=== PATIENT | female | born 1955 | race Caucasian/White ===

== ENCOUNTER 2017-09-15 21:52 | Emergency (ER) | payer OTHER, SELFPAY ==
[2017-09-15 21:53] VITALS: BP 151/89; PULSE 61; RESP 17; TEMP 36.9; O2SAT 97; BMI 19.5
--- NOTE | 2017-09-15 22:24 | CT_ITS ---
STUDY: CT BRAIN WITHOUT CONTRAST REASON FOR EXAM: Female, 62 years old. Headache. RADIATION DOSAGE (If Supplied By Facility): CTDIvol = ( 44.99 ) mGy, DLP = ( 745.49 ) mGycm TECHNIQUE: Transaxial CT imaging of the brain was performed without administration of intravenous contrast material. Individualized dose optimization techniques were used for this CT. COMPARISON: None. FINDINGS: Normal soft tissue structures. Normal calvarium. Normal size ventricles and extra-axial spaces for the patient's age. Normal white matter tracts of the cerebral hemispheres. Normal basal ganglia and thalami. Normal brainstem. Normal cerebellum. There is no intracranial hemorrhage. There are no findings of an acute ischemic infarction. There is trace opacification of the left mastoid air cells. CT/Brain/Head without Contrast IMPRESSION: No acute intracranial process. Trace opacification of the left mastoid air cells suggestive of a history of mastoiditis. Electronically Signed: Leena Ambrosio MD at 23:22 EDT Tel , Service support ,
--- NOTE | 2017-09-15 22:29 | ED.VISSUMM ---
- ER Visit Summary Date of Service: 09/15/17 Chief Complaint: Headache History of Present Illness: The patient is a 62 F presenting with intermittent headache. This has been ongoing for the past week. She states her blood pressure has been fluctuating. She states the highest she recorded was 189/90. She has been checking this at home. She does not have a history of hypertension. She states when her blood pressure is high, she has a headache. She does not currently have a headache. She has been under a lot of stress at work. She denies chest pain or shortness of breath. Denies other complaints. Physical Examination: Vitals are stable. Blood pressure 151/89. Patient is afebrile. Alert no acute distress. HEENT exam is unremarkable. Neck is supple. Lungs are clear and equal bilaterally. Heart is regular rate and rhythm. Abdomen is soft nontender nondistended. Extremities are unremarkable. Skin is warm and dry. No focal neurologic deficit. Remainder of exam is unremarkable. Emergency Department Course and Treatment: CT head shows no acute process. Basic metabolic panel is normal. Patient remains asymptomatic in the emergency department. She is advised to track her blood pressures at home. She is advised to follow up with Dr. Galvez her primary care physician. Advised return to ED for any worsening complaints. Disposition: Discharge home Impression: Headache, resolved; hypertension This note was generated with [employer] dictation software. It may contain incorrect words, spelling, and punctuation that were not noted in review of the chart prior to signing ED Disposition - Plan for ED Patient: Chief Complaint: Headache Referrals: Cory Galvez DO [Primary Care Provider] -
[2017-09-15 22:40] VITALS: BP 144/76
[2017-09-15 22:51] VITALS: BP 161/85
[2017-09-15 23:13] LABS: Anion Gap 7 (5-15); BUN 16 mg/dL (7-18); BUN/Creat Ratio 18.9 RATIO (10-20); Calcium,Total 8.7 mg/dL (8.5-10.1); Chloride 107 mmol/L (98-107); Creatinine, Serum 0.85 mg/dL (0.55-1.02); EST Glomerular Filtration Rate 72 mL/min (>60); Est Glom Filt Rate - Afr Amer 87 mL/min (>60); Estimated Creatinine Clearance 55.18 ml/min; Glucose 99 mg/dL (74-106); Potassium 3.8 mmol/L (3.5-5.1); Sodium Level 141 mmol/L (136-145)
--- NOTE | 2017-09-15 23:37 | ED.DEP ---
ED Disposition - Plan for ED Patient: Chief Complaint: Headache Instructions: ED Cephalgia Unspecified Referrals: Cory Galvez DO [Primary Care Provider] -
[2017-09-15 23:56] VITALS: BP 139/65; PULSE 50; RESP 16; O2SAT 98
== END 2017-09-15 23:56 | disposition home or self-care (01) ==
LOC: ED 22:38
PROVIDERS: Emergency Provider Emergency Medicine; Family Provider Student in an Organized Health Care Education/Training Program; PCP Student in an Organized Health Care Education/Training Program
DX: R51 Headache (principal); I10 Essential (primary) hypertension; K21.9 Gastro-esophageal reflux disease without esophagitis; F41.9 Anxiety disorder, unspecified; Z72.0 Tobacco use; Z79.82 Long term (current) use of aspirin; Z79.899 Other long term (current) drug therapy
CPT/HCPCS: 70450; 80048; 99282; A4216

== ENCOUNTER 2018-03-22 22:19 | Emergency (ER) | payer OTHER, SELFPAY ==
[2018-03-22 22:20] VITALS: BP 152/84; PULSE 57; RESP 16; TEMP 36.2; O2SAT 98; BMI 19.9
--- NOTE | 2018-03-22 22:23 | EKG12_ITS ---
Test Reason : CP Blood Pressure : / mmHG Vent. Rate : 055 BPM Atrial Rate : 055 BPM P-R Int : 140 ms QRS Dur : 068 ms QT Int : 438 ms P-R-T Axes : 076 082 061 degrees QTc Int : 419 ms Sinus bradycardia Possible Left atrial enlargement Borderline ECG Confirmed by AHMET GALINDO, RANDAL ([id number]), fashion editor YAMILA HOLT ([id number]) on 03/25/2018 3:29:40 PM Referred By: ANGI Confirmed By:RANDAL LEO MD
--- NOTE | 2018-03-22 22:30 | RAD_ITS ---
STUDY: X-RAY CHEST REASON FOR EXAM: Female, 62 years old. Chest pain TECHNIQUE: Single frontal view of the chest. COMPARISON: 05/27/2017. FINDINGS: There is hyperinflation of the lungs consistent with chronic obstructive lung disease (COPD). No infiltrates or effusions. There is no demonstrated pleural abnormality. Normal size heart. Normal mediastinum and destin. Normal visualized pulmonary arteries. Normal visualized aortic arch and descending thoracic aorta. Normal visualized thoracic spine. Normal visualized ribs, clavicles, and shoulders. There is no demonstrated abnormality of the visualized soft tissue structures of the upper abdomen. RAD/Chest 1 View (Portable) IMPRESSION: There are findings consistent with COPD. There is no evidence of acute chest disease. Electronically Signed: Waldemar Moody MD at 22:47 EST , Service support ,
[2018-03-22 22:38] VITALS: O2SAT 97
[2018-03-22 22:52] LABS: Absolute Lymphocyte Count 3.82 X10^3/ul (0.83-4.51); Absolute Neutrophil Count 5.5 X10^3/uL (2.0-7.7); Basophil# 0.03 X10^3/uL; Basophil% 0.3 % (0-1); Eosinophil# 0.14 X10^3/uL; Eosinophils% 1.4 % (0-5); Hematocrit 43.8 % (37-47); Hemoglobin 14.3 g/dl (12.0-15.0); Lymphocyte # 3.82 X10^3/ul (4.0); Lymphocyte % 38.2 % (19-41); Mean Corp Hgb Conc 32.6 g/gl (32-36); Mean Corpuscular Volume 88.8 fL (81-99); Mean Platelet Vol. 10.3 fl (6.2-12.0); Monocyte# 0.54 X10^3/uL; Monocyte% 5.4 % (0-10); Neutrophil # 5.47 X10^3/uL (2.7-7.7); Neutrophil % 54.6 % (47-70); Platelet Count 255 K/mm3 (150-450); RBC Distribution Width CV 14.5 % (11.6-14.6); RBC Distribution Width SD 47.2 fl (35.1-43.9); Red Blood Count 4.93 M/mm3 (4.2-5.4)
[2018-03-22 22:53] LABS: POSITIVE COUNT NO; POSITIVE DIFFERENTIAL NO; POSITIVE MORPHOLOGY NO
[2018-03-22 23:00] LABS: International Normalized Ratio 0.9; Prothrombin Time (Protime)PT. 12.4 SECONDS (11.7-14.9)
[2018-03-22 23:11] LABS: Anion Gap 7 (5-15); BUN 11 mg/dL (7-18); BUN/Creat Ratio 12.9 RATIO (10-20); Calcium,Total 9.2 mg/dL (8.5-10.1); Chloride 105 mmol/L (98-107); Creatinine, Serum 0.85 mg/dL (0.55-1.02); EST Glomerular Filtration Rate 71 mL/min (>60); Est Glom Filt Rate - Afr Amer 86 mL/min (>60); Estimated Creatinine Clearance 56.25 ml/min; Glucose 91 mg/dL (74-106); Potassium 3.9 mmol/L (3.5-5.1); Sodium Level 141 mmol/L (136-145)
[2018-03-22 23:30] LABS: Lipase 76 U/L (73-393)
[2018-03-22 23:36] LABS: AST(SGOT) 20 U/L (15-37); Alanine Aminotransfer ALT/SGPT 35 U/L (13-56); Albumin, Serum 4.3 g/dL (3.2-5.0); Alkaline Phosphatase 116 U/L (45-117); Bilirubin, Direct 0.09 mg/dL (0.00-0.30); Globulin 3.3 g/dL (2.2-4.2); Protein, Total 7.6 g/dL (6.4-8.2)
[2018-03-23] MEDS: Mag Hydrox/Al Hydrox/Simeth 30 ML UDC PO (00:16)
--- NOTE | 2018-03-23 00:16 | ED.VISSUMM ---
- ER Visit Summary Date of Service: 03/23/18 Chief Complaint: Chest pain History of Present Illness: The patient is a 62 F presenting for evaluation secondary chest pain. Patient states over the course last week she has been dealing with intermittent burning chest pain. Patient states that this seems to be exacerbated by any time she eats or drinks coffee. Spin associated with nausea. Patient does have an underlying history of smoking hypercholesterolemia premature family history of cardiac disease. Patient has stress test 8 years ago. She denies any DVT or PE risk factors. Physical Examination: Vital signs are within normal limits, patient is afebrile. General: Patient is well-nourished well-developed and in no acute distress. Head: Normocephalic, atraumatic Eyes: Pupils equal round and reactive bilaterally, extra occular motion intact bialterally ENT: Moist mucous membranes Neck: Supple, no lymphadenopathy, no JVD, no meningismus CVS: Heart regular rate and rhythm, no murmurs, rubs or gallops, radial pulses 2+ bilaterally Resp: Respirations nondistressed, lung sounds clear bilaterally Abdomen: Soft, minimal epigastric pain no guarding or rebound, nondistended, no palpable masses, normal bowel sounds Back: Nontender Extremities: Nontender, atraumatic, active full range of motion, no peripheral edema Skin: warm, no rashes, no petechia Neuro: Alert and oriented x 4, CN 2-12 intact, no lateralizing neurological defecits Psyc: Normal affect Test Results: EKG shows sinus rate of [address] segments normal T waves. CBC chemistry liver lipase and troponin are negative. Chest x-ray shows COPD. Emergency Department Course and Treatment: Patient presented for evaluation secondary to burning chest pain is worse with eating and drinking. Patient's workup is negative as noted above. Pains been going on intermittently over the course the last week, patient has a low risk heart score and had improvement with GI cocktail. Patient will be placed on a course of omeprazole she will follow-up with primary care. Disposition: Discharge Impression: 1. GERD This note was generated with [employer] software. It may contain incorrect words, spelling, and punctuation that were not noted in review of the chart prior to signing ED Disposition - Plan for ED Patient: Disposition: Home or Assisted Living Chief Complaint: Chest Pain Diagnosis: GERD (gastroesophageal reflux disease) Instructions: ED GERD Prescriptions: Omeprazole 40 mg PO DAILY #30 capsule.dr Referrals: Cory Galvez DO [Primary Care Provider] - 3-5 Days
[2018-03-23 00:49] VITALS: BP 126/83; PULSE 55; RESP 16; O2SAT 96
== END 2018-03-23 00:50 | disposition home or self-care (01) ==
PROVIDERS: Emergency Provider Emergency Medicine; Family Provider Student in an Organized Health Care Education/Training Program; PCP Student in an Organized Health Care Education/Training Program
DX: K21.9 Gastro-esophageal reflux disease without esophagitis (principal); J44.9 Chronic obstructive pulmonary disease, unspecified; E78.00 Pure hypercholesterolemia, unspecified; F41.9 Anxiety disorder, unspecified; Z79.82 Long term (current) use of aspirin; Z79.899 Other long term (current) drug therapy; Z87.891 Personal history of nicotine dependence
CPT/HCPCS: 71045; 80048; 80076; 83690; 84484; 85025; 85610; 93005; 99284; A4216

== ENCOUNTER 2018-06-05 21:30 | Emergency (ER) | payer OTHER, SELFPAY ==
[2018-06-05 21:30] VITALS: BP 148/72; PULSE 61; RESP 14; TEMP 36.7; O2SAT 97; BMI 19.4
--- NOTE | 2018-06-05 21:41 | EKG12_ITS ---
Test Reason : CP Blood Pressure : / mmHG Vent. Rate : 060 BPM Atrial Rate : 060 BPM P-R Int : 152 ms QRS Dur : 078 ms QT Int : 418 ms P-R-T Axes : 081 078 070 degrees QTc Int : 418 ms Normal sinus rhythm Nonspecific ST abnormality Abnormal ECG Confirmed by AHMET GALINDO, RANDAL ([id number]), scientific publications editor RA DOE ([id number]) on 06/07/2018 8:52:36 AM Referred By: ANGI Confirmed By:RANDAL LEO MD
--- NOTE | 2018-06-05 21:41 | RAD_ITS ---
HISTORY: PT STATED PAIN IN CHEST, BELIEVES IT TO BE CAUSED BY ACID REFLUX EXAM: XR Chest 1 View: COMPARISON: 03/22/18 CXR FINDINGS: # of images incl. paperwork: 2 LINES/DEVICES: None. LUNGS: Radiographically clear. No consolidation, edema or effusion. No pneumothorax. Hyperinflated similar to prior. MEDIASTINUM AND CARDIOVASCULAR STRUCTURES: Cardiac silhouette not enlarged. Central airways and mediastinal contour are unremarkable. BONES AND SOFT TISSUES: Unremarkable. RAD/Chest 1 View (Portable) IMPRESSION: No radiographic evidence of acute cardiopulmonary disease. COPD. at 2214 Reported and signed by: Rafa Christopher MD Electronically Signed: Rafa Christopher, at 22:13 EST Tel , Service support ,
[2018-06-05 21:55] VITALS: BP 160/87; PULSE 59; RESP 18; O2SAT 98
[2018-06-05 21:56] VITALS: O2SAT 98
[2018-06-05] MEDS: Aspirin 81 MG TAB.CHEW 324 MG PO (22:01)
[2018-06-05 22:10] LABS: Absolute Lymphocyte Count 3.92 X10^3/ul (0.83-4.51); Absolute Neutrophil Count 4.3 X10^3/uL (2.0-7.7); Basophil# 0.02 X10^3/uL; Basophil% 0.2 % (0-1); Eosinophil# 0.13 X10^3/uL; Eosinophils% 1.5 % (0-5); Hematocrit 43.2 % (37-47); Lymphocyte # 3.92 X10^3/ul (4.0); Lymphocyte % 44.5 % (19-41); Mean Corp Hgb Conc 32.4 g/gl (32-36); Mean Corpuscular Hgb 28.7 pg (27.0-32.0); Mean Corpuscular Volume 88.7 fL (81-99); Mean Platelet Vol. 10.8 fl (6.2-12.0); Monocyte# 0.39 X10^3/uL; Monocyte% 4.4 % (0-10); Neutrophil # 4.32 X10^3/uL (2.7-7.7); Neutrophil % 49.2 % (47-70); Platelet Count 229 K/mm3 (150-450); RBC Distribution Width CV 13.9 % (11.6-14.6); RBC Distribution Width SD 45.2 fl (35.1-43.9); Red Blood Count 4.87 M/mm3 (4.2-5.4); White Blood Count 8.8 K/mm3 (4.4-11.0)
[2018-06-05 22:11] LABS: POSITIVE COUNT NO; POSITIVE DIFFERENTIAL NO; POSITIVE MORPHOLOGY NO
[2018-06-05 22:24] LABS: Anion Gap 6 (5-15); BUN 16 mg/dL (7-18); BUN/Creat Ratio 18.6 RATIO (10-20); Calcium,Total 8.9 mg/dL (8.5-10.1); Chloride 107 mmol/L (98-107); Creatinine, Serum 0.86 mg/dL (0.55-1.02); EST Glomerular Filtration Rate 71 mL/min (>60); Est Glom Filt Rate - Afr Amer 86 mL/min (>60); Estimated Creatinine Clearance 54.33 ml/min; Glucose 103 mg/dL (74-106); Potassium 3.8 mmol/L (3.5-5.1); Sodium Level 139 mmol/L (136-145)
--- NOTE | 2018-06-05 22:41 | ED.VISSUMM ---
- ER Visit Summary Date of Service: 06/05/18 Chief Complaint: Chest pain. I think it is my reflux again. History of Present Illness: The patient is a 62 F history of gastroesophageal reflux and high cholesterol. Patient states she is had intermittent symptoms for 1 month. Occurs almost daily. It is a burning. Not associated with exertion. 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 No melena. She says she had a negative stress test several years ago. Denies any history of DVT or PE. No recent travel or surgery. No hemoptysis. It is not pleuritic. She has no leg pain or swelling. Physical Examination: Well-appearing older female. Vital signs are stable afebrile. Pulse ox 97% on room air no signs of hypoxia. HEENT exam unremarkable. Neck nontender no lymphadenopathy. Lungs clear to auscultation bilaterally. Heart regular rate and rhythm no murmur. Chest wall nontender. Abdomen soft and nontender. Normal bowel sounds no peritoneal signs. No signs of obstruction. Remedies moves all 4 calves nontender without edema. Equal and symmetrical radial pulses. 5 out of 5 muck miner strength. Neurologically she is awake and alert with no focal motor deficits. Test Results: CBC normal. Chemistries normal. Troponin normal. EKG sinus rhythm rate of 60 no acute signs of ischemia. Unchanged from an EKG from March 2018. Chest x-ray normal cardiac silhouette mediastinum. No acute abnormality read both by myself and the radiologist. Emergency Department Course and Treatment: Patient history and exam are consistent with gastroesophageal reflux. She will be treated with both Protonix and GI cocktail. She is improving and will be discharged home. Treatment Plan: Continue her gastroesophageal treatment. Follow-up with your doctor as needed. Disposition: Discharge Impression: Chest pain secondary to GE reflux This note was generated with [email or web address] dictation software. It may contain incorrect words, spelling, and punctuation that were not noted in review of the chart prior to signing ED Disposition - Plan for ED Patient: Chief Complaint: Chest Pain Referrals: Cory Galvez DO [Primary Care Provider] -
--- NOTE | 2018-06-05 22:44 | ED.DCSUM_ITS ---
- ER Visit Summary Date of Service: 06/05/18 Chief Complaint: Chest pain. I think it is my reflux again. History of Present Illness: The patient is a 62 F history of gastroesophageal reflux and high cholesterol. Patient states she is had intermittent symptoms for 1 month. Occurs almost daily. It is a burning. Not associated with exertion. 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 No melena. She says she had a negative stress test several years ago. Denies any history of DVT or PE. No recent travel or surgery. No hemoptysis. It is not pleuritic. She has no leg pain or swelling. Physical Examination: Well-appearing older female. Vital signs are stable afebrile. Pulse ox 97% on room air no signs of hypoxia. HEENT exam unremarkable. Neck nontender no lymphadenopathy. Lungs clear to auscultation bilaterally. Heart regular rate and rhythm no murmur. Chest wall nontender. Abdomen soft and nontender. Normal bowel sounds no peritoneal signs. No signs of obstruction. Remedies moves all 4 calves nontender without edema. Equal and symmetrical radial pulses. 5 out of 5 appian bpm developer strength. Neurologically she is awake and alert with no focal motor deficits. Test Results: CBC normal. Chemistries normal. Troponin normal. EKG sinus rhythm rate of 60 no acute signs of ischemia. Unchanged from an EKG from March 2018. Chest x-ray normal cardiac silhouette mediastinum. No acute abnormality read both by myself and the radiologist. Emergency Department Course and Treatment: Patient history and exam are con sistent with gastroesophageal reflux. She will be treated with both Protonix and GI cocktail. She is improving and will be discharged home. Treatment Plan: Continue her gastroesophageal treatment. Follow-up with your doctor as needed. Disposition: Discharge Impression: Chest pain secondary to GE reflux This note was generated with [employer] dictation software. It may contain incorrect words, spelling, and punctuation that were not noted in review of the chart prior to signing ED Disposition - Plan for ED Patient: Chief Complaint: Chest Pain Referrals: Cory Galvez DO [Primary Care Provider] -
--- NOTE | 2018-06-05 22:44 | ED.DEP ---
ED Disposition - Plan for ED Patient: Disposition: Home or Assisted Living Chief Complaint: Chest Pain Instructions: ED GERD Prescriptions: Sucralfate [Carafate] 1 gm PO 4X/DAY #60 [facility] [place] Referrals: Cory Galvez DO [Primary Care Provider] - 1 Week if not improving Additional Instructions: Continue your Prevacid. Use a Carafate as needed. Follow up with your doctor as needed. Absolutely positively stop smoking. Smoking will make her reflux worse.
--- NOTE | 2018-06-05 22:48 | DCINST.ED_ITS ---
ED Disposition - Plan for ED Patient: Disposition: Home or Assisted Living Chief Complaint: Chest Pain Instructions: ED GERD Prescriptions: Sucralfate [Carafate] 1 gm PO 4X/DAY #60 [facility] [place] Referrals: Cory Galvez DO [Primary Care Provider] - 1 Week if not improving Additional Instructions: Continue your Prevacid. Use a Carafate as needed. Follow up with your doctor as needed. Absolutely positively stop smoking. Smoking will make her reflux worse.
[2018-06-05 22:55] VITALS: BP 146/82; PULSE 62; RESP 16; O2SAT 94
[2018-06-05] MEDS: Pantoprazole Sodium 40 MG Tablet PO (22:55)
[2018-06-05] MEDS: Mag Hydrox/Al Hydrox/Simeth 30 ML UDC PO (22:55)
--- OUTSIDE RECORDS SUMMARY | 2018-08-09 10:51 | XMS RPT_ITS ---
:1955 Author Organization OHIP Care Team Providers Name Role Phone AMANDA PENALOZA (KEYLINER) Attending Unavailable AMANDA PENALOZA (KEYLINER) Referring Unavailable AMANDA PENALOZA (KEYLINER) Attending Unavailable SANCHEZ SOLOMON (PAPERBACK MACHINE OPERATOR) Attending Unavailable WILLINGHAM, CORY L Referring Unavailable SANCHEZ SOLOMON (PAPERBACK MACHINE OPERATOR) Referring Unavailable WILLINGHAM, CORY L Referring Unavailable DAILY HAGER (KEYLINER) Attending Unavailable WILLINGHAM, CORY L Referring Unavailable WILLINGHAM, CORY L Attending Unavailable WILLINGHAM, CORY L Referring Unavailable WILLINGHAM, CORY L Referring Unavailable WILLINGHAM, CORY Referring Unavailable VICTORINOIELBABAK EUECDAANDA Lavelle (KEYLINER) Referring Unavailable Willingham, Cory Primary Care Unavailable Ac Agee Attending Unavailable Willingham, Cory Primary Care Unavailable Vanessa Martinez Attending Unavailable Willingham, Cory Primary Care Unavailable Erwin Lloyd Attending Unavailable PROBLEMS PROBLEMS DATE TYPE CONDITION / CODE ATTENDING STATUS SOURCE 04/13/2018 Active Other abnormal and NA Active [facility] inconclusive [place] findings on Repository diagnostic imaging of breast / R92.8(ICD-10) 03/22/2018 Active Encounter for NA Active [facility] screening [place] mammogram for Repository malignant neoplasm of breast / Z12.31(ICD-10) 09/18/2017 Active Other emt intermediate NA Active [facility] (current) drug [place] therapy / Repository Z79.899(ICD-10) 09/18/2017 Active Gas pain / NA Active [facility] R14.1(ICD-10) [place] Repository 09/18/2017 Active Abdominal NA Active [facility] distension [facility] [place] (gaseous) / Repository R14.0(ICD-10) 06/19/2017 Active Gastro-esophageal NA Active [facility] reflux disease [place] without Repository esophagitis / K21.9(ICD-10) PROCEDURES PROCEDURES No Procedure Records FoundRESULTS RESULTS 12 LEAD ELECTROCARDIOGRAM Observed: 06/07/2018 Status: F Source: [place] 8:53 AM [facility] Cardiovascular Services [address] [place] [address] 12 Lead EKG 06/05/18 2141 MR#: [id number] Acct: [id number] Name: KEVAN YOON Rep #: [id number] : 1955 62 From: Joseph Finney MD Attending Dr: Status: DEP ER Ordering Dr: Ac Agee MD Date: 06/05/18 Location: ED Sex: F C Admitted: Test Reason : CP Blood Pressure : / mmHG Vent. Rate : 060 BPM Atrial Rate : 060 BPM P-R Int : 152 ms QRS Dur : 078 ms QT Int : 418 ms P-R-T Axes : 081 078 070 degrees QTc Int : 418 ms Normal sinus rhythm Nonspecific ST abnormality Abnormal ECG Confirmed by JOSEPH FINNEY MD ([id number]), scientific publications editor RA DOE ([id number]) on 06/07/2018 8:52:36 AM Referred By: ANGI Confirmed By:JOSEPH FINNEY MD 06/07/18 0852 Date Joseph Finney MD CC: Ac Agee MD; Cory Barboza DO Signed DISCHARGE INSTRUCTION Observed: 06/05/2018 Status: F Source: [place] 10:58 PM [facility] REPOSIT[facility] Medical Records Department [address] [place] [address] Discharge Instruction 06/05/184 MR#: [id number] Acct: [id number] Name: KEVAN YOON Rep #: [id number] : 1955 62 From: Ac Agee MD PCP: Cory Barboza DO Status: REG ER ED Disposition - Plan for ED Patient: Disposition: Home or Assisted Living Chief Complaint: Chest Pain Instructions: ED GERD Prescriptions: Sucralfate [Carafate] 1 gm PO 4X/DAY #60 [facility] [place] Referrals: Cory Willingham DO [Primary Care Provider] - 1 Week if not improving Additional Instructions: Continue your Prevacid. Use a Carafate as needed. Follow up with your doctor as needed. Absolutely positively stop smoking. Smoking will make her reflux worse. What to do if you have Problems For any increased pain, shortness of breath, bleeding, nausea or vomiting, chest pain, or any unexpected problems, contact your Primary Care Provider. Call [facility] ([phone]) or report to the closest Emergency Room. Call 911 if necessary. 06/05/182257 <Electronically signed by cA Agee MD> Date Ac Agee MD Cosigner Signature (If Indicated): Date CC: Cory Barboza DO EMERGENCY DEPARTMENT Observed: 06/05/2018 Status: F Source: [place] SUMMARY 10:58 PM [facility] REPOSIT[facility] Medical Records Department [address] [place] [address] Emergency Department Summary 06/05/182240 MR#: [id number] Acct: [id number] Name: KEVAN YOON Rep #: [id number] : 1955 62 From: Ac Agee MD PCP: Cory Barboza DO Status: REG ER - ER Visit Summary Date of Service: 06/05/18 Chief Complaint: Chest pain. I think it is my reflux again. History of Present Illness: The patient is a 62 F history of gastroesophageal reflux and high cholesterol. Patient states she is had intermittent symptoms for 1 month. Occurs almost daily. It is a burning. Not associated with exertion. 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 No melena. She says she had a negative stress test several years ago. Denies any history of DVT or PE. No recent travel or surgery. No hemoptysis. It is not pleuritic. She has no leg pain or swelling. Physical Examination: Well-appearing older female. Vital signs are stable afebrile. Pulse ox 97% on room air no signs of hypoxia. HEENT exam unremarkable. Neck nontender no lymphadenopathy. Lungs clear to auscultation bilaterally. Heart regular rate and rhythm no murmur. Chest wall nontender. Abdomen soft and nontender. Normal bowel sounds no peritoneal signs. No signs of obstruction. Remedies moves all 4 calves nontender without edema. Equal and symmetrical radial pulses. 5 out of 5 bicycle inspector strength. Neurologically she is awake and alert with no focal motor deficits. Test Results: CBC normal. Chemistries normal. Troponin normal. EKG sinus rhythm rate of 60 no acute signs of ischemia. Unchanged from an EKG from March 2018. Chest x-ray normal cardiac silhouette mediastinum. No acute abnormality read both by myself and the radiologist. Emergency Department Course and Treatment: Patient history and exam are consistent with gastroesophageal reflux. She will be treated with both Protonix and GI cocktail. She is improving and will be discharged home. Treatment Plan: Continue her gastroesophageal treatment. Follow-up with your doctor as needed. Disposition: Discharge Impression: Chest pain secondary to GE reflux This note was generated with Idea2 dictation software. It may contain incorrect words, spelling, and punctuation that were not noted in review of the chart prior to signing ED Disposition - Plan for ED Patient: Chief Complaint: Chest Pain Referrals: Cory Willingham DO [Primary Care Provider] - What to do if you have Problems For any increased pain, shortness of breath, bleeding, nausea or vomiting, chest pain, or any unexpected problems, contact your Primary Care Provider. Call [facility] ([phone]) or report to the closest Emergency Room. Call 911 if necessary. 06/05/18 1428 <Electronically signed by Ac Agee MD> Date Ac Agee MD Cosigner Signature (If Indicated): Date CC: Cory Barboza, DO CBC W/DIFF, AUTOMATED Collected: 06/05/2018 Status: F Source: [place] 9:53 PM [facility] TYPE CODE TESTS RESULT OUT OF RANGE REFERENCE UNITS LAB L100.1000 4.4-11.0 K/mm3 Normal WBC 8.8 LAB L100.1200 4.2-5.4 M/mm3 Normal RBC 4.87 LAB L100.1300 12.0-15.0 g/dl Normal HGB 14.0 LAB L100.1400 37-47 % Normal HCT 43.2 LAB L100.1500 81-99 fL Normal MCV 88.7 LAB L100.1600 27.0-32.0 pg Normal MCH 28.7 LAB L100.1700 32-36 g/gl Normal MCHC 32.4 LAB L100.1810 11.6-14.6 % Normal RDW CV 13.9 LAB L100.1820 35.1-43.9 fl High RDW SD 45.2 LAB L100.1900 150-450 K/mm3 Normal PLT 229 LAB L100.2000 6.2-12.0 fl Normal MPV 10.8 LAB L100.2100 47-70 % Normal NEUT% 49.2 LAB L100.2200 19-41 % High LY% 44.5 LAB L100.2300 0-10 % Normal MONO% 4.4 LAB L100.2400 0-5 % Normal EO% 1.5 LAB L100.2500 0-1 % Normal BASO% 0.2 LAB L100.2550 0.0-0.9 % Normal IM GRAN % 0.200 Result Comment: IG% - Immature Granulocytes (promyelocytes, myelocytes and metamyelocytes) > 1% indicates that a LEFT SHIFT is Present. LAB L100.2620 2.0-7.7 X10 3/uL Normal Absolute Neut 4.3 LAB L100.2720 0.83-4.51 X10 3/ul Normal Absolute Lymph 3.92 Performed By: #### L100.0100 #### [facility] [address] [place], [address] BASIC METABOLIC Collected: 06/05/2018 Status: F Source: [place] PROFILE (BMP) 9:53 PM [facility] TYPE CODE TESTS RESULT OUT OF RANGE REFERENCE UNITS LAB L501.0100 74-106 mg/dL Normal GLU 103 Result Comment: Fasting Glucose result from 100 to 125 mg/dL suggests IMPAIRED HOMEOSTASIS per A.D.A. criteria. Please note revised GLUCOSE reference range effective 2017. LAB L501.1000 7-18 mg/dL Normal BUN 16 LAB L501.1100 0.55-1.02 mg/dL Normal CREAT,SERUM 0.86 Result Comment: The validity of the calculated GFR AND GFRAA in patients over 70 years has not been determined. Clinical correlation is essential. LAB L501.1110 >60 mL/min Normal EST GFR 71 Result Comment: Non- GFR Calc LAB L501.1115 >60 mL/min Normal EST GFR - AA 86 Result Comment: GFR Calc LAB L501.1255 ml/min Normal Estimated CRCL 54.33 LAB L501.1300 10-20 RATIO Normal BUN/CRE 18.6 LAB L501.2200 8.5-10 mg/dL Normal .1 CA 8.9 LAB L501.5300 136-14 mmol/L Normal 5 NA 139 LAB L501.5600 3.5-5. mmol/L Normal 1 K 3.8 LAB L501.5900 98-107 mmol/L Normal CL 107 LAB L501.6100 21.0-3 mmol/L Normal 2.0 CO2 26.0 LAB L501.6200 5-15 Normal GAP 6 Performed By: #### L500.2500, L501.4010 #### [facility] [address] [place], [address] TROPONIN-I Collected: 06/05/2018 Status: F Source: [place] 9:53 PM [facility] TYPE CODE TESTS RESULT OUT OF RANGE REFERENCE UNITS LAB L501.4010 <0.045 ng/mL Normal < 0.015 TROPONIN-I Result Comment: TROPONIN-I EXPECTED VALUES <0.045 Negative 0.045 - 0.590 Consistent with Cardiac Damage > OR = 0.600 Critical Value Not every elevated troponin is indicative of TX. These values should be used with clinical judgement in examining the patient's clinical picture for diagnosis. To establish a diagnosis of TX versus myocardial injury, there must be a demonstrated rise and/or fall in the troponin values, in addition to ischemic symptoms, EKG changes, new regional wall motion abnormality, and/or angiographical evidence. PLEASE NOTE: REFERENCE RANGES EDITED 17 Performed By: #### L500.2500, L501.4010 #### [facility] [address] [place], [address] CHEST 1 VIEW Observed: 06/05/2018 Status: F Source: [place] (PORTABLE) 9:42 PM [facility] Imaging Services [address] [place] [address] Chest 1 View (Portable) MR#: [id number] Acct: [id number] Name: KEVAN YOON Rep #: [id number] : 1955 F 62 From: Rafa Christopher MD PCP: Cory Barboza DO Status: REG ER Study: Chest 1 View (Portable) Date of Exam: 06/05/18 Exam# [id number] Ordering Dr: Ac Agee MD HISTORY: PT STATED PAIN IN CHEST, BELIEVES IT TO BE CAUSED BY ACID REFLUX EXAM: XR Chest 1 View: COMPARISON: 03/22/18 CXR FINDINGS: # of images incl. paperwork: 2 LINES/DEVICES: None. LUNGS: Radiographically clear. No consolidation, edema or effusion. No pneumothorax. Hyperinflated similar to prior. MEDIASTINUM AND CARDIOVASCULAR STRUCTURES: Cardiac silhouette not enlarged. Central airways and mediastinal contour are unremarkable. BONES AND SOFT TISSUES: Unremarkable. RAD/Chest 1 View (Portable) IMPRESSION: No radiographic evidence of acute cardiopulmonary disease. COPD. at 2214 Reported and signed by: Rafa Christopher MD Electronically Signed: Rafa Christopher, at 22:13 EST Tel , Service support , CC: Ac Agee MD; Cory Barboza DO Nurse Clinician: Signed CNCO Observed: 04/13/2018 Status: COMPLETED Source: [place] 10:58 AM [facility] [place] REPOSITORY HNO ID: [id number] Author: Mammography Coordinator Service: (none) Author Type: Physician Type: Letter Filed: 04/14/2018 11:31 PM Note Text: April 13, 2018 PID: [id number] Kevan Yoon [address] [place] [address] Dear Ms. Yoon, Your recent breast imaging examination performed on 04/13/2018 showed an area that we believe is probably benign (not cancer). A six month follow-up is recommended to ensure your breast health. Please call [phone] to schedule an appointment for these tests if you have not already done so. Your mammogram demonstrates that you have dense breast tissue, which could hide abnormalities. Dense breast tissue, in and of itself, is a relatively common condition. Therefore, this information is not provided to cause undue concern; rather, it is to raise your awareness and promote discussion with your health care provider regarding the presence of dense breast tissue in addition to other risk factors. Early detection of cancer is very important. We also understand recommendations regarding breast cancer screening are controversial. Please discuss with your primary care provider which strategy is best for you and whether a mammogram is right for you. Your breast images and report will be kept on file here as part of your permanent medical record and are available for your continuing care. Thank you for allowing us to help in meeting your health care needs. Sincerely, Dr. Major Interpreting Radiologist [facility] (# mo Follow-up) CNCO Observed: 04/13/2018 Status: COMPLETED Source: [place] 10:58 AM [facility] [place] REPOSITORY HNO ID: [id number] Author: Mammography Coordinator Service: (none) Author Type: Physician Type: Letter Filed: 04/14/2018 11:31 PM Note Text: April 13, 2018 PID: [id number] Kevan Yoon [address] [place] [address] Dear Ms. Yoon, Your recent breast imaging examination performed on 04/13/2018 showed an area that we believe is probably benign (not cancer). A six month follow-up is recommended to ensure your breast health. Please call [phone] to schedule an appointment for these tests if you have not already done so. Your mammogram demonstrates that you have dense breast tissue, which could hide abnormalities. Dense breast tissue, in and of itself, is a relatively common condition. Therefore, this information is not provided to cause undue concern; rather, it is to raise your awareness and promote discussion with your health care provider regarding the presence of dense breast tissue in addition to other risk factors. Early detection of cancer is very important. We also understand recommendations regarding breast cancer screening are controversial. Please discuss with your primary care provider which strategy is best for you and whether a mammogram is right for you. Your breast images and report will be kept on file here as part of your permanent medical record and are available for your continuing care. Thank you for allowing us to help in meeting your health care needs. Sincerely, Dr. Major Interpreting Radiologist [facility] (# mo Follow-up) PROGRESS Observed: 04/13/2018 Status: COMPLETED Source: [place] 10:28 AM [facility] REPOSITORY [facility] ID: [id number] Author: Margaret Herbert Service: (none) Author Type: Dancer Or Choreographer Type: Progress Notes Filed: 04/13/2018 10:29 AM Note Text: Radiology Service Progress Note PATIENT NAME: Kevan Yoon DATE OF SERVICE: April 13, 2018 TIME: 10:29 AM PATIENT IDENTITY VERIFICATION COMPLETED USING TWO (2) METHODS: Patient confirmed name verbally and Date of . PATIENT GENDER DATA: Female. status: : No status: N/A PATIENT RELEVANT IMPLANT DATA REVIEWED: Not Applicable RADIOLOGY DEPARTMENT: Ultrasound PERIPHERAL IV DATA: Not applicable SIGNED BY: MARGARET HERBERT RDMS RVDuarte April 13, 2018 10:29 AM [facility] Observed: 04/13/2018 Status: F Source: [facility] 10:23 AM [facility] REPOSITORY * * *Final Report* * * DATE OF EXAM: Apr 13 2018 10:23AM WRU [id number] - [facility] [employer] BREAST LTD LT / PROCEDURE REASON: Abnormal mammogram * * * * Physician Interpretation * * * * #[id number] - [facility] DIAGNOSTIC LT #[id number] - [facility] [employer] BREAST LTD LT UNILATERAL LEFT DIGITAL DIAGNOSTIC MAMMOGRAM WITH CAD: 04/13/2018 HISTORY: Abnormal Mammogram\CALL BACK Abnormal Mammogram. RESULT: TECHNIQUE: The study was acquired using full field digital technology and interpreted from soft copy. Current study was also evaluated with a Computer Aided Detection (CAD). Comparison is made to exam dated: 03/22/2018 mammogram - [facility]. The tissue of left breast is heterogeneously dense. This may lower the sensitivity of mammography. There is an asymmetry in the left breast upper outer aspect anterior depth. There also are multiple calcifications in the left breast superior lateral quadrant middle depth. No other significant masses or calcifications are seen in the breast. IMPRESSION: INCOMPLETE: NEEDS ADDITIONAL IMAGING EVALUATION The asymmetry in the left breast upper outer aspect anterior depth is indeterminate. An ultrasound is recommended. The multiple calcifications in the left breast superior lateral quadrant middle depth are probably benign. A follow-up mammogram in 3 months is recommended. LIMITED ULTRASOUND OF LEFT BREAST: 04/13/2018 RESULT: Comparison is made to exam dated: 03/22/2018 mammogram - [facility]. Color flow and real-time ultrasound of the left breast upper aspect and retroareolar regions were performed. Aj scale images of the real-time examination were reviewed. There is a benign area of fibroglandular tissue in the left breast at 12 o'clock anterior depth. IMPRESSION: BENIGN FINDING There is no sonographic evidence of malignancy. The area of fibroglandular tissue in the left breast is benign. Multiple calcifications in the left breast superior lateral quadrant middle depth are probably benign. A follow-up left mammogram in 6 months is recommended to demonstrate stability. Frankie Major D.O. rl/:04/13/2018 10:58:33 Multiple national specialty organizations have released breast cancer screening guidelines for women at average risk for developing breast cancer - guidelines that are based on both evidence and opinion, yet differ on when to start and how often to screen for breast cancer. With representation from Breast Imaging, Internal Medicine, Women's Health, Family Medicine, and Medical/Surgical Oncology, the [facility] has carefully reviewed the data and reached the following consensus: 1) All women should engage in shared decision-making with their providers to decide when to start and how often to screen; 2) All women should have the opportunity to start screening mammography at age 40; 3) For women ages 45-55, we recommend annual screening mammograms; 4) For women ages 55 and over, we support both the transition from an annual to a biennial interval if this aligns more with patient's values and preferences, or continuation with annual screening; 5) All women should discuss with their providers when to stop screening mammograms. [employer] [facility] Specialists(s): RT Larry(R)(M), [facility]; Margaret Herbert, [facility] letter sent: # Mo FU OVERALL STUDY BIRADS: 3 Probably benign finding - short term interval follow-up recommended Nurse Clinician: Sarah Transcribe Date/Time: Apr 13 2018 9:35A Dictated by : FRANKIE MAJOR DO This examination was interpreted and the report reviewed and electronically signed by: FRANKIE MAJOR DO on Apr 13 2018 10:58AM EST [id number] [facility] DIAGNOSTIC LT Observed: 04/13/2018 Status: F Source: [place] 9:43 AM [facility] REPOSITORY * * *Final Report* * * DATE OF EXAM: Apr 13 2018 9:43AM WR [id number] - [facility] DIAGNOSTIC LT / PROCEDURE REASON: Abnormal mammogram * * * * Physician Interpretation * * * * RESULT: #[id number] - [facility] DIAGNOSTIC LT #[id number] - [facility] US BREAST LTD LT UNILATERAL LEFT DIGITAL DIAGNOSTIC MAMMOGRAM WITH CAD: 04/13/2018 HISTORY: Abnormal Mammogram\CALL BACK Abnormal Mammogram. RESULT: TECHNIQUE: The study was acquired using full field digital technology and interpreted from soft copy. Current study was also evaluated with a Computer Aided Detection (CAD). Comparison is made to exam dated: 03/22/2018 mammogram - [facility]. The tissue of left breast is heterogeneously dense. This may lower the sensitivity of mammography. There is an asymmetry in the left breast upper outer aspect anterior depth. There also are multiple calcifications in the left breast superior lateral quadrant middle depth. No other significant masses or calcifications are seen in the breast. IMPRESSION: INCOMPLETE: NEEDS ADDITIONAL IMAGING EVALUATION The asymmetry in the left breast upper outer aspect anterior depth is indeterminate. An ultrasound is recommended. The multiple calcifications in the left breast superior lateral quadrant middle depth are probably benign. A follow-up mammogram in 3 months is recommended. LIMITED ULTRASOUND OF LEFT BREAST: 04/13/2018 RESULT: Comparison is made to exam dated: 03/22/2018 mammogram - [facility]. Color flow and real-time ultrasound of the left breast upper aspect and retroareolar regions were performed. Aj scale images of the real-time examination were reviewed. There is a benign area of fibroglandular tissue in the left breast at 12 o'clock anterior depth. IMPRESSION: BENIGN FINDING There is no sonographic evidence of malignancy. The area of fibroglandular tissue in the left breast is benign. Multiple calcifications in the left breast superior lateral quadrant middle depth are probably benign. A follow-up left mammogram in 6 months is recommended to demonstrate stability. Frankie Major D.O. rl/:04/13/2018 10:58:33 Multiple national specialty organizations have released breast cancer screening guidelines for women at average risk for developing breast cancer - guidelines that are based on both evidence and opinion, yet differ on when to start and how often to screen for breast cancer. With representation from Breast Imaging, Internal Medicine, Women's Health, Family Medicine, and Medical/Surgical Oncology, the [facility] has carefully reviewed the data and reached the following consensus: 1) All women should engage in shared decision-making with their providers to decide when to start and how often to screen; 2) All women should have the opportunity to start screening mammography at age 40; 3) For women ages 45-55, we recommend annual screening mammograms; 4) For women ages 55 and over, we support both the transition from an annual to a biennial interval if this aligns more with patient's values and preferences, or continuation with annual screening; 5) All women should discuss with their providers when to stop screening mammograms. [facility] Specialists(s): Jennifer Ramirez, RT(R)(M), [facility]; Margaret Herbert, [facility] letter sent: # Mo FU OVERALL STUDY BIRADS: 3 Probably benign finding - short term interval follow-up recommended Nurse Clinician: Sarah Cresporijayce Date/Time: Apr 13 2018 9:35A Dictated by: FRANKIE MAJOR DO This examination was interpreted and the report reviewed and electronically signed by: FRANKIE MAJOR DO on Apr 13 2018 10:58AM EST [id number] Observed: 04/13/2018 Status: COMPLETED Source: [place] 12:00 AM [facility] KEVAN YOON ([id number]) 1955 F Date Time Provider Department 04/13/18 AMANDA PENALOZA ([facility]) [facility] During your visit today, we recorded the following information about you: Amanda Penaloza APRN.CNP 04/13/2018 1:26 PM Signed Please call patient. Mammogram and US show multiple calcifications in the left breast that are probably benign. ?A follow-up mammogram in 3 months is recommended. Jessy Wise LPN 04/14/2018 3:17 PM Signed Left message to call office and speak to a nurse. Jessy Allen LPN 04/21/2018 2:51 PM Signed Pt notified. Please file order and send to scheduling to arrange. Pt stated they told her 6 months, she is ok with scheduling in 3 months. Amanda Penaloza APRN.CNP 04/21/2018 2:56 PM Signed Recommend 3 month F/u with mammogram and US Iram Allen LPN 04/21/2018 2:57 PM Signed Routed to scheduling to arrange appt. Maxi Vega 04/21/2018 4:46 PM Signed Patient was contacted and scheduled for 3 months from now on 07/20/2017 at 9 and 9:30 am respectively for her follow up mammogram and ultrasound. Allergies As of Date: 04/13/2018 (No Known Allergies) Date Reviewed: 02/17/2018 Reviewed by: Lizette Levine LPN - Fully Assessed Reason for Visit: Results [95] Cmt: mammogram Primary Visit Diagnosis:Abnormal mammogram of left breast [R92.8] Order(s):[facility] [[id number]] Order #: [id number] FUTURE US BREAST LTD LT [[id number]] Order #: [id number] FUTURE Prescriptions as of 04/13/2018 Sig: ATORVASTATIN 20 MG TABLET Take 1 tablet by mouth daily * FLUOXETINE 20 MG CAPSULE Take 1 capsule by mouth once * DOXYCYCLINE MONOHYDRATE 100 M* Take 1-2 capsules tid prn BENZONATATE 100 MG CAPSULE Take 1 capsule by mouth three* LANSOPRAZOLE 30 MG CAPSULE,DE* Take 1 capsule by mouth twice* FEXOFENADINE 180 MG TABLET Take 1 tablet by mouth once d* FLUTICASONE 50 MCG/ACTUATION * Use 2 Sprays in each nostril * ASPIRIN 81 MG TABLET,DELAYED * Take 81 mg by mouth once chris* Problem List As Of Date 04/13/2018 Noted Resolved Pure hypercholesterolemia [E78.00] INVALID FOR* RUQ pain [R10.11] INVALID FOR* Anxiety disorder [F41.9] INVALID FOR* Well adult exam [Z00.00] INVALID FOR* Undiagnosed cardiac murmurs [R01.1] INVALID FOR* Encounter Status:Closed by AMANDA PENALOZA CNP on 04/21/18 12 LEAD ELECTROCARDIOGRAM Observed: 03/25/2018 Status: F Source: [place] 3:29 PM [facility] Cardiovascular Services [address] [place] [id number] 12 Lead EKG 03/22/18 2226 MR#: [id number] Acct: [id number] Name: KEVAN YOON Rep #: [id number] : 1955 62 From: Joseph Finney MD Attending Dr: Status: DEP ER Ordering Dr: Provider,Ed P. Date: 03/22/18 Location: ED Sex: F C Admitted: Test Reason : CP Blood Pressure : / mmHG Vent. Rate : 055 BPM Atrial Rate : 055 BPM P-R Int : 140 ms QRS Dur : 068 ms QT Int : 438 ms P-R-T Axes : 076 082 061 degrees QTc Int : 419 ms Sinus bradycardia Possible Left atrial enlargement Borderline ECG Confirmed by JOSEPH FINNEY MD ([id number]), scientific publications editor YAMLIA HOLT ([id number]) on 03/25/2018 3:29:40 PM Referred By: ANGI Confirmed By:JOSEPH FINNEY MD 03/25/18 1529 Date Joseph Finney MD CC: ED PHYSICIAN PROVIDER; Cory Barboza DO; Erwin Lloyd Signed EMERGENCY DEPARTMENT Observed: 03/23/2018 Status: F Source: [place] SUMMARY 8:56 AM [facility] Medical Records Department [address] [place] [address] Emergency Department Summary 03/23/18 0016 MR#: [id number] Acct: [id number] Name: KEVAN YOON Rep #: [id number] : 1955 62 From: Erwin Lloyd MD PCP: Cory Barboza DO Status: DEP ER - ER Visit Summary Date of Service: 03/23/18 Chief Complaint: Chest pain History of Present Illness: The patient is a 62 F presenting for evaluation secondary chest pain. Patient states over the course last week she has been dealing with intermittent burning chest pain. Patient states that this seems to be exacerbated by any time she eats or drinks coffee. Spin associated with nausea. Patient does have an underlying history of smoking hypercholesterolemia premature family history of cardiac disease. Patient has stress test 8 years ago. She denies any DVT or PE risk factors. Physical Examination: Vital signs are within normal limits, patient is afebrile. General: Patient is well-nourished well-developed and in no acute distress. Head: Normocephalic, atraumatic Eyes: Pupils equal round and reactive bilaterally, extra occular motion intact bialterally ENT: Moist mucous membranes Neck: Supple, no lymphadenopathy, no JVD, no meningismus CVS: Heart regular rate and rhythm, no murmurs, rubs or gallops, radial pulses 2+ bilaterally Resp: Respirations nondistressed, lung sounds clear bilaterally Abdomen: Soft, minimal epigastric pain no guarding or rebound, nondistended, no palpable masses, normal bowel sounds Back: Nontender Extremities: Nontender, atraumatic, active full range of motion, no peripheral edema Skin: warm, no rashes, no petechia Neuro: Alert and oriented x 4, CN 2-12 intact, no lateralizing neurological defecits Psyc: Normal affect Test Results: EKG shows sinus rate of [address] segments normal T waves. CBC chemistry liver lipase and troponin are negative. Chest x-ray shows COPD. Emergency Department Course and Treatment: Patient presented for evaluation secondary to burning chest pain is worse with eating and drinking. Patient's workup is negative as noted above. Pains been going on intermittently over the course the last week, patient has a low risk heart score and had improvement with GI cocktail. Patient will be placed on a course of omeprazole she will follow-up with primary care. Disposition: Discharge Impression: 1. GERD This note was generated with Idea2 dictation software. It may contain incorrect words, spelling, and punctuation that were not noted in review of the chart prior to signing ED Disposition - Plan for ED Patient: Disposition: Home or Assisted Living Chief Complaint: Chest Pain Diagnosis: GERD (gastroesophageal reflux disease) Instructions: ED GERD Prescriptions: Omeprazole 40 mg PO DAILY #30 capsule. Referrals: Cory Willingham DO [Primary Care Provider] - 3-5 Days What to do if you have Problems For any increased pain, shortness of breath, bleeding, nausea or vomiting, chest pain, or any unexpected problems, contact your Primary Care Provider. Call [facility] ([phone]) or report to the closest Emergency Room. Call 911 if necessary. 03/23/18 0856 <Electronically signed by Erwin Lloyd MD> Date Erwin Lloyd MD Cosigner Signature (If Indicated): Date CC: Cory Garison, DO CBC W/DIFF, AUTOMATED Collected: 03/22/2018 Status: F Source: [place] 10:36 PM [facility] TYPE CODE TESTS RESULT OUT OF RANGE REFERENCE UNITS LAB L100.1000 4.4-11.0 K/mm3 Normal WBC 10.0 LAB L100.1200 4.2-5.4 M/mm3 Normal RBC 4.93 LAB L100.1300 12.0-15.0 g/dl Normal HGB 14.3 LAB L100.1400 37-47 % Normal HCT 43.8 LAB L100.1500 81-99 fL Normal MCV 88.8 LAB L100.1600 27.0-32.0 pg Normal MCH 29.0 LAB L100.1700 32-36 g/gl Normal MCHC 32.6 LAB L100.1810 11.6-14.6 % Normal RDW CV 14.5 LAB L100.1820 35.1-43.9 fl High RDW SD 47.2 LAB L100.1900 150-450 K/mm3 Normal PLT 255 LAB L100.2000 6.2-12.0 fl Normal MPV 10.3 LAB L100.2100 47-70 % Normal NEUT% 54.6 LAB L100.2200 19-41 % Normal LY% 38.2 LAB L100.2300 0-10 % Normal MONO% 5.4 LAB L100.2400 0-5 % Normal EO% 1.4 LAB L100.2500 0-1 % Normal BASO% 0.3 LAB L100.2550 0.0-0.9 % Normal IM GRAN % 0.100 Result Comment: IG% - Immature Granulocytes (promyelocytes, myelocytes and metamyelocytes) > 1% indicates that a LEFT SHIFT is Present. LAB L100.2620 2.0-7.7 X10 3/uL Normal Absolute Neut 5.5 LAB L100.2720 0.83-4.51 X10 3/ul Normal Absolute Lymph 3.82 Performed By: #### L100.0100 #### [facility] [address] [place], [address] PROTHROMBIN TIME W/INR Collected: 03/22/2018 Status: F Source: [place] 10:36 PM [facility] TYPE CODE TESTS RESULT OUT OF RANGE REFERENCE UNITS LAB L300.4150 11.7-14.9 SECONDS Normal PROTIME 12.4 LAB L300.4200 Normal INR 0.9 Performed By: #### L300.3900 #### [facility] [address] [place], [place], [id number] BASIC METABOLIC Collected: 03/22/2018 Status: F Source: [place] PROFILE (BMP) 10:36 PM [facility] TYPE CODE TESTS RESULT OUT OF RANGE REFERENCE UNITS LAB L501.0100 74-106 mg/dL Normal GLU 91 Result Comment: Please note revised GLUCOSE reference range effective 2017. LAB L501.1000 7-18 mg/dL Normal BUN 11 LAB L501.1100 0.55-1.02 mg/dL Normal CREAT,SERUM 0.85 Result Comment: The validity of the calculated GFR AND GFRAA in patients over 70 years has not been determined. Clinical correlation is essential. LAB L501.1110 >60 mL/min Normal EST GFR 71 Result Comment: Non- GFR Calc LAB L501.1115 >60 mL/min Normal EST GFR - AA 86 Result Comment: GFR Calc LAB L501.1255 ml/min Normal Estimated CRCL 56.25 LAB L501.1300 10-20 RATIO Normal BUN/CRE 12.9 LAB L501.2200 8.5-10 mg/dL Normal .1 CA 9.2 LAB L501.5300 136-14 mmol/L Normal 5 NA 141 LAB L501.5600 3.5-5. mmol/L Normal 1 K 3.9 LAB L501.5900 98-107 mmol/L Normal CL 105 LAB L501.6100 21.0-3 mmol/L Normal 2.0 CO2 29.0 LAB L501.6200 5-15 Normal GAP 7 Performed By: #### L500.2500, L501.4010 #### [facility] [address] [place], [address] TROPONIN-I Collected: 03/22/2018 Status: F Source: [place] 10:36 PM [facility] TYPE CODE TESTS RESULT OUT OF RANGE REFERENCE UNITS LAB L501.4010 <0.045 ng/mL Normal < 0.015 TROPONIN-I Result Comment: TROPONIN-I EXPECTED VALUES <0.045 Negative 0.045 - 0.590 Consistent with Cardiac Damage > OR = 0.600 Critical Value Not every elevated troponin is indicative of TX. These values should be used with clinical judgement in examining the patient's clinical picture for diagnosis. To establish a diagnosis of TX versus myocardial injury, there must be a demonstrated rise and/or fall in the troponin values, in addition to ischemic symptoms, EKG changes, new regional wall motion abnormality, and/or angiographical evidence. PLEASE NOTE: REFERENCE RANGES EDITED 17 Performed By: #### L500.2500, L501.4010 #### [facility] [address] [place], [address] LIPASE Collected: 03/22/2018 Status: F Source: [place] 10:36 PM [facility] TYPE CODE TESTS RESULT OUT OF RANGE REFERENCE UNITS LAB L501.2450 73-393 U/L Normal LIPASE 76 Performed By: #### L501.2450 #### [facility] [address] [place], [address] LIVER PROFILE Collected: 03/22/2018 Status: F Source: [place] 10:36 PM [facility] TYPE CODE TESTS RESULT OUT OF RANGE REFERENCE UNITS LAB L501.1500 6.4-8.2 g/dL Normal T PROT 7.6 LAB L501.1800 3.2-5.0 g/dL Normal ALB 4.3 LAB L501.1950 2.2-4.2 g/dL Normal GLOB 3.3 LAB L501.4100 15-37 U/L Normal AST 20 LAB L501.4305 45-117 U/L Normal ALK P 116 LAB L501.4405 13-56 U/L Normal ALT 35 LAB L501.4600 0.20-1.00 mg/dL Normal T BILI 0.40 LAB L501.4700 0.00-0.30 mg/dL Normal D BILI 0.09 Performed By: #### L500.3400 #### [facility] [address] [place], [address] CHEST 1 VIEW Observed: 03/22/2018 Status: F Source: [place] (PORTABLE) 10:24 PM [facility] Imaging Services [address] [place] [address] Chest 1 View (Portable) MR#: [id number] Acct: [id number] Name: KEVAN YOON Rep #: [id number] : 1955 F 62 From: Waldemar Moody MD PCP: Cory Barboza DO Status: PRE ER Study: Chest 1 View (Portable) Date of Exam: 03/22/18 Exam# [id number] Ordering Dr: Provider,Ed P. STUDY: X-RAY CHEST REASON FOR EXAM: Female, 62 years old. Chest pain TECHNIQUE: Single frontal view of the chest. COMPARISON: 05/27/2017. FINDINGS: There is hyperinflation of the lungs consistent with chronic obstructive lung disease (COPD). No infiltrates or effusions. There is no demonstrated pleural abnormality. Normal size heart. Normal mediastinum and destin. Normal visualized pulmonary arteries. Normal visualized aortic arch and descending thoracic aorta. Normal visualized thoracic spine. Normal visualized ribs, clavicles, and shoulders. There is no demonstrated abnormality of the visualized soft tissue structures of the upper abdomen. RAD/Chest 1 View (Portable) IMPRESSION: There are findings consistent with COPD. There is no evidence of acute chest disease. Electronically Signed: Waldemar Moody MD at 22:47 EST , Service support , CC: ED PHYSICIAN PROVIDER; Cory Barboza DO Nurse Clinician: Signed CNCO Observed: 03/22/2018 Status: COMPLETED Source: [place] 10:44 AM [facility] REPOSITORY HNO ID: [id number] Author: Mammography Coordinator Service: (none) Author Type: Physician Type: Letter Filed: 03/23/2018 11:31 PM Note Text: March 22, 2018 PID: [id number] Kevan Yoon [address] [place] [address] Dear Ms. Yoon, Your recent breast imaging exam on 03/22/2018 showed a possible finding that requires additional imaging studies for a complete evaluation. Most such findings are probably benign (not cancer). Please call [phone] or [phone] to schedule an appointment for your additional imaging if you have not already done so. Your mammogram demonstrates that you have dense breast tissue, which could hide abnormalities. Dense breast tissue, in and of itself, is a relatively common condition. Therefore, this information is not provided to cause undue concern; rather, it is to raise your awareness and promote discussion with your health care provider regarding the presence of dense breast tissue in addition to other risk factors. Your breast images and report will be kept on file here as part of your permanent medical record and are available for your continuing care. Thank you for allowing us to help in meeting your health care needs. Sincerely, Dr. Johnson Interpreting Radiologist [facility] (Additional imaging) [facility] SCREENING Observed: 03/22/2018 Status: F Source: [place] 10:42 AM [facility] REPOSITORY * * *Final Report* * * DATE OF EXAM: Mar 22 2018 10:42AM [facility] 0581 - [facility] SCREENING / PROCEDURE REASON: Visit for screening mammogram * * * * Physician Interpretation * * * * RESULT: #[id number] - [facility] SCREENING BILATERAL DIGITAL SCREENING MAMMOGRAM WITH CAD: 03/22/2018 HISTORY: Visit For Screening Mammogram /This is the patient's BASELINE mammogram/patient reports NO breast symptoms. RESULT: TECHNIQUE: The study was acquired using full field digital technology and interpreted from soft copy. Current study was also evaluated with a Computer Aided Detection (CAD). No prior exams were available for comparison. The tissue of both breasts is heterogeneously dense. This may lower the sensitivity of mammography. There is a possible asymmetry in the left breast at 12 o'clock middle depth. No other significant masses, calcifications, or other findings are seen in either breast. IMPRESSION: INCOMPLETE: NEEDS ADDITIONAL IMAGING EVALUATION The possible asymmetry in the left breast is indeterminate. Additional views are recommended. Mel macedo/sarah:03/22/2018 10:44:48 [facility] Specialists: Jennifer YEPEZ([place])(M), [facility] letter sent: Additional Imaging Needed Mammogram BI-RADS: 0 Incomplete: needs additional imaging evaluation If this report indicates you need additional imaging, and it has NOT yet been performed, please call , to schedule. We sincerely thank you for choosing the [facility] for your breast imaging needs. Multiple national specialty organizations have released breast cancer screening guidelines for women at average risk for developing breast cancer - guidelines that are based on both evidence and opinion, yet differ on when to start and how often to screen for breast cancer. With representation from Breast Imaging, Internal Medicine, Women's Health, Family Medicine, and Medical/Surgical Oncology, the [facility] has carefully reviewed the data and reached the following consensus: 1) All women should engage in shared decision-making with their providers to decide when to start and how often to screen; 2) All women should have the opportunity to start screening mammography at age 40; 3) For women ages 45-55, we recommend annual screening mammograms; 4) For women ages 55 and over, we support both the transition from an annual to a biennial interval if this aligns more with patient's values and preferences, or continuation with annual screening; 5) All women should discuss with their providers when to stop screening mammograms. Nurse Clinician: Sarah Transcribe Date/Time: Mar 22 2018 10:38A Dictated by: MEL JOHNSON MD This examination was interpreted and the report reviewed and electronically signed by: MEL JOHNSON MD on Mar 22 2018 10:44AM EST [id number] Observed: 02/17/2018 Status: COMPLETED Source: [place] 11:50 AM [facility] REPOSITORY O ID: [id number] Author: Cory Willingham Service: (none) Author Type: Physician Type: Progress Notes Filed: 02/17/2018 11:51 AM Note Text: CC: Kevan Yoon is a 62 year old female who presents to the office for physical HPI Overall doing well Anxiety, well controlled, taking Prozac 20 mg a day as prescribed without SE HPL, taking lipitor as prescribed Cholesterol, Total Date Value Ref Range Status 09/18/2017 155 <200 mg/dL Final Comment: <200 mg/dL, Desirable 200-239 mg/dL, Borderline high >239 mg/dL, High HDL Cholesterol Date Value Ref Range Status 09/18/2017 42 >39 mg/dL Final Comment: 40-59 mg/dL, Acceptable >59 mg/dL, High: Negative risk factor for coronary heart disease <40 mg/dL, Low: Positive risk factor for coronary heart disease LDL Cholesterol Date Value Ref Range Status 09/18/2017 97 <100 mg/dL Final Comment: <100 mg/dL, Optimal 100-129 mg/dL, Near optimal/above optimal 130-159 mg/dL, Borderline high 160-189 mg/dL, High >189 mg/dL, Very high Secondary prevention optimal LDL Cholesterol levels are recommended to be < 70 mg/dL Triglyceride Date Value Ref Range Status 09/18/2017 82 <150 mg/dL Final Comment: <150 mg/dL, Normal 150-199 mg/dL, Borderline high 200-499 mg/dL, High >499 mg/dL, Very high PAST MEDICAL HISTORY Diagnosis Date - Anxiety - GERD (gastroesophageal reflux disease) - Hypercholesteremia - MR (mitral regurgitation) - MVP (mitral valve prolapse) - Tobacco abuse PAST SURGICAL HISTORY Procedure Laterality Date - APPENDECTOMY 1963 - COLONOS W/REM POLYP SNARE 04/27/15 small polyp -5 year follow up - EGD W/O BRSH SPECIMEN W/BX 04/27/15 gastritis - REMOVAL GALLBLADDER 1989 Cholecystectomy Social History: Social History Substance Use Topics - Smoking status: Current Every Day Smoker Packs/day: 0.50 Years: 40.00 Types: Cigarettes Start date: 03/22/1975 - Smokeless tobacco: Never Used - Alcohol use No FAMILY HISTORY Problem Relation Age of Onset - Hypertension Father 89 - Stroke Father - other (chf) Father - Hypertension Mother Liver disease 72 - Cervical Cancer Mother - Stroke Paternal Grandmother - Heart Paternal Grandfather Current Outpatient prescriptions: atorvastatin (LIPITOR) 20 mg tablet Take 1 tablet by mouth daily at bedtime. For cholesterol. FLUoxetine (PROZAC) 20 mg capsule Take 1 capsule by mouth once daily. doxycycline monohydrate (MONODOX) 100 mg capsule Take 1-2 capsules tid prn benzonatate (TESSALON PERLE) 100 mg capsule Take 1 capsule by mouth three times daily as needed. lansoprazole (PREVACID) 30 mg capsule Take 1 capsule by mouth twice daily. fexofenadine (MICHAEL ALLERGY) 180 mg tablet Take 1 tablet by mouth once daily. fluticasone (FLONASE) 50 mcg/actuation nasal spray Use 2 Sprays in each nostril once daily. Rinse mouth after use. aspirin, enteric coated (ASPIRIN, ENTERIC COATED) 81 mg EC tablet Take 81 mg by mouth once daily. Allergies: ALLERGIES No Known Allergies ROS: See HPI, otherwise negative PE: 02/17/18 0930 BP: 120/80 Pulse: 60 Resp: 16 Temp: 36.2 ?C (97.1 ?F) TempSrc: Left Tympanic Weight: 51.7 kg (114 lb) Gen: AANDO, NAD, non-toxic appearing, Pleasant, cooperative HEENT: NT/AC, PERRLA, wearing glasses, EOMs intact b/l, nares clear and patent b/l, pharynx without erythema, exudate or lesions. Poor dentition, MMM, Uvula midline. EACs without erythema or debris. TMs pearly zhao with intact landmarks b/l. Neck: supple, No cervical LAD, no thyromegaly, no carotid bruits CV: RRR, normal S1 and S2, no murmurs, no gallops, no rubs, Pulses 2+ and symmetric in UE and LE b/l Lungs: normal respiratory effort, CTA b/l, no wheezing or rhonchi or rales Abd: soft, NT, ND, +BS, no hepatosplenomegaly MS: FROM all 4 extremities Neuro: CN II-XII intact b/l, strength 5/5 b/l UE and LE, DTRs 2/4 UE and LE, sensation intact. Skin: warm, dry, intact, No rashes or lesions on exposed skin. ASSESSMENT/PLAN: 1. Well adult exam - ICD9: V70.0, ICD10: Z00.00 (primary diagnosis) - Encouraged monthly Breast Self Exam - Recommended calcium intake with supplements or by diet (goal of 9109-2722 mg/day - Follow up for annual exam in one year. 2. Panic disorder with agoraphobia - ICD9: 300.21, ICD10: F40.01 - rx refilled, chronic, stable - FLUOXETINE 20 MG CAPSULE 3. Visit for screening mammogram - ICD9: V76.12, ICD10: Z12.31 - Set up for mammogram, yearly mammogram recommended - Encouraged monthly BSE - [facility] SCREENING 4. Need for vaccination - ICD9: V05.9, ICD10: Z23 - INFLUENZA VACCINE QUADRIVALENT AGE 3 YRS PLUS + IM Cory Willingham DO To ER if develops chest pain, shortness of breath, or severe worsening of symptoms. Discussed risks, benefits, alternatives, and potential side effects of medications. Patient expressed understanding and agreed with the plan. Cory Willingham DO [address] [place] [address] BENITEZ Observed: 02/17/2018 Status: COMPLETED Source: [place] 9:40 AM [facility] REPOSITORY Office Visit (FAMPWS) KEVAN YOON ([id number]) 1955 F Date Time Provider Department 02/17/18 9:40 AM [facility] During your visit today, we recorded the following information about you: Temperature Pulse Respiration Blood pressure 97.1 degrees 60/minute 16/minute 120/80 Weight 51.7 kg Lizette Levine LPN 02/17/2018 11:51 AM Signed 62 year old female here for INACTIVATED INFLUENZA VACCINE. 4085-5984 Season Patient is identified by name and date of : Yes [] CONTRAINDICATIONS color enhanced section Age less than 6 months? No Allergy to eggs, chicken, chicken feathers, or chicken dander? No Allergy to thimerosal (a preservative) or formaldehyde, gelatin? No History of severe reaction to any vaccine component or a previous dose of influenza vaccination? No History of Guillain-Guernsey Syndrome within 6 weeks after a previous influenza vaccine? No Patient is not moderately or severely ill? No Current temperature greater or equal to 100.4F? No History of Bone Marrow Transplant prior 6 months or solid organ transplant in the past 3 months ? No History of fainting after a prior injection or medical procedure? No- ? If patient has fainted in the past, the CDC recommends sitting or lying down for 15 minutes after the vaccination. [] VERIFICATION color enhanced section Was the answer Yes for any of the above contraindications? No contraindications present. Acceptable to proceed with vaccine. Patient/guardian agrees the above answers are true to the best of their knowledge? Yes Flu vaccine information sheet given? Yes See immunization activity in [facility] for details of immunizations adminstered today. Patient age: [age] year old For The 1496-5883 Flu Season 6-35 months old: Fluzone 0.25 ml - IM (Preservative Free) 3 years of age: Fluzone 0.5 ml - IM (Preservative Free) 3 years and older: Fluzone 0.5 ml- IM-(with Preservatives) 65+ years old: 2-49 years old Fluzone High-Dose 0.5 ml - IM (Preservative Free) FLUMIST- intranasal REMEMBER: If patient is less than 9 years of age and this is the first vaccine of Influenza to be received in any flu season, they should receive a second dose in one months time. Cory Willingham, 02/17/2018 11:51 AM Signed CC: Kevan Yoon is a 62 year old female who presents to the office for physical HPI Overall doing well Anxiety, well controlled, taking Prozac 20 mg a day as prescribed without SE HPL, taking lipitor as prescribed Cholesterol, Total Date Value Ref Range Status 09/18/2017 155 <200 mg/dL Final Comment: <200 mg/dL, Desirable 200-239 mg/dL, Borderline high >239 mg/dL, High HDL Cholesterol Date Value Ref Range Status 09/18/2017 42 >39 mg/dL Final Comment: 40-59 mg/dL, Acceptable >59 mg/dL, High: Negative risk factor for coronary heart disease <40 mg/dL, Low: Positive risk factor for coronary heart disease LDL Cholesterol Date Value Ref Range Status 09/18/2017 97 <100 mg/dL Final Comment: <100 mg/dL, Optimal 100-129 mg/dL, Near optimal/above optimal 130-159 mg/dL, Borderline high 160-189 mg/dL, High >189 mg/dL, Very high Secondary prevention optimal LDL Cholesterol levels are recommended to be < 70 mg/dL Triglyceride Date Value Ref Range Status 09/18/2017 82 <150 mg/dL Final Comment: <150 mg/dL, Normal 150-199 mg/dL, Borderline high 200-499 mg/dL, High >499 mg/dL, Very high PAST MEDICAL HISTORY Diagnosis Date - Anxiety - GERD (gastroesophageal reflux disease) - Hypercholesteremia - MR (mitral regurgitation) - MVP (mitral valve prolapse) - Tobacco abuse PAST SURGICAL HISTORY Procedure Laterality Date - APPENDECTOMY 1963 - COLONOS W/REM POLYP SNARE 04/27/15 small polyp -5 year follow up - EGD W/O BRSH SPECIMEN W/BX 04/27/15 gastritis - REMOVAL GALLBLADDER 1989 Cholecystectomy Social History: Social History Substance Use Topics - Smoking status: Current Every Day Smoker Packs/day: 0.50 Years: 40.00 Types: Cigarettes Start date: 03/22/1975 - Smokeless tobacco: Never Used - Alcohol use No FAMILY HISTORY Problem Relation Age of Onset - Hypertension Father 89 - Stroke Father - other (chf) Father - Hypertension Mother Liver disease 72 - Cervical Cancer Mother - Stroke Paternal Grandmother - Heart Paternal Grandfather Current Outpatient prescriptions: atorvastatin (LIPITOR) 20 mg tablet Take 1 tablet by mouth daily at bedtime. For cholesterol. FLUoxetine (PROZAC) 20 mg capsule Take 1 capsule by mouth once daily. doxycycline monohydrate (MONODOX) 100 mg capsule Take 1-2 capsules tid prn benzonatate (TESSALON PERLE) 100 mg capsule Take 1 capsule by mouth three times daily as needed. lansoprazole (PREVACID) 30 mg capsule Take 1 capsule by mouth twice daily. fexofenadine (MICHAEL ALLERGY) 180 mg tablet Take 1 tablet by mouth once daily. fluticasone (FLONASE) 50 mcg/actuation nasal spray Use 2 Sprays in each nostril once daily. Rinse mouth after use. aspirin, enteric coated (ASPIRIN, ENTERIC COATED) 81 mg EC tablet Take 81 mg by mouth once daily. Allergies: ALLERGIES No Known Allergies ROS: See HPI, otherwise negative PE: 02/17/18 0930 BP: 120/80 Pulse: 60 Resp: 16 Temp: 36.2 ?C (97.1 ?F) TempSrc: Left Tympanic Weight: 51.7 kg (114 lb) Gen: AANDO, NAD, non-toxic appearing, Pleasant, cooperative HEENT: NT/AC, PERRLA, wearing glasses, EOMs intact b/l, nares clear and patent b/l, pharynx without erythema, exudate or lesions. Poor dentition, MMM, Uvula midline. EACs without erythema or debris. TMs pearly zhao with intact landmarks b/l. Neck: supple, No cervical LAD, no thyromegaly, no carotid bruits CV: RRR, normal S1 and S2, no murmurs, no gallops, no rubs, Pulses 2+ and symmetric in UE and LE b/l Lungs: normal respiratory effort, CTA b/l, no wheezing or rhonchi or rales Abd: soft, NT, ND, +BS, no hepatosplenomegaly MS: FROM all 4 extremities Neuro: CN II-XII intact b/l, strength 5/5 b/l UE and LE, DTRs 2/4 UE and LE, sensation intact. Skin: warm, dry, intact, No rashes or lesions on exposed skin. ASSESSMENT/PLAN: 1. Well adult exam - ICD9: V70.0, ICD10: Z00.00 (primary diagnosis) - Encouraged monthly Breast Self Exam - Recommended calcium intake with supplements or by diet (goal of 0066-6666 mg/day - Follow up for annual exam in one year. 2. Panic disorder with agoraphobia - ICD9: 300.21, ICD10: F40.01 - rx refilled, chronic, stable - FLUOXETINE 20 MG CAPSULE 3. Visit for screening mammogram - ICD9: V76.12, ICD10: Z12.31 - Set up for mammogram, yearly mammogram recommended - Encouraged monthly BSE - DHARA SCREENING 4. Need for vaccination - ICD9: V05.9, ICD10: Z23 - INFLUENZA VACCINE QUADRIVALENT AGE 3 YRS PLUS + IM Cory Willingham DO To ER if develops chest pain, shortness of breath, or severe worsening of symptoms. Discussed risks, benefits, alternatives, and potential side effects of medications. Patient expressed understanding and agreed with the plan. Cory Willingham DO [address] [place] [address] Referring Provider: CORY WILLINGHAM [[id number]] Allergies As of Date: 02/17/2018 (No Known Allergies) Date Reviewed: 02/17/2018 Reviewed by: Lizette Levine LPN - Fully Assessed Reason for Visit: Follow Up [171] Cmt: 6 months Imm/Inj [58] Cmt: Flu Vaccine Reason For Visit History Recorded Primary Visit Diagnosis:Well adult exam [Z00.00] Other Visit Diagnoses:Panic disorder with agoraphobia [F40.01] Visit for screening mammogram [Z12.31] Need for vaccination [Z23] Order(s):DHARA SCREENING [[id number]] Order #: [id number] FUTURE INFLUENZA VACCINE QUADRIVALENT AGE 3 YRS PLUS + IM [[id number]] Order #: [id number] atorvastatin (LIPITOR) 20 mg tabletTake 1 tablet by mouth daily at bedtime. For cholesterol.Disp: 90 tabletRfl: 3 FLUoxetine (PROZAC) 20 mg capsuleTake 1 capsule by mouth once daily.Disp: 90 capsuleRfl: 3 Prescriptions as of 02/17/2018 Sig: ATORVASTATIN 20 MG TABLET Take 1 tablet by mouth daily * FLUOXETINE 20 MG CAPSULE Take 1 capsule by mouth once * DOXYCYCLINE MONOHYDRATE 100 M* Take 1-2 capsules tid prn BENZONATATE 100 MG CAPSULE Take 1 capsule by mouth three* LANSOPRAZOLE 30 MG CAPSULE,DE* Take 1 capsule by mouth twice* FEXOFENADINE 180 MG TABLET Take 1 tablet by mouth once d* FLUTICASONE 50 MCG/ACTUATION * Use 2 Sprays in each nostril * ASPIRIN 81 MG TABLET,DELAYED * Take 81 mg by mouth once chris* Problem List As Of Date 02/17/2018 Noted Resolved Pure hypercholesterolemia [E78.00] INVALID FOR* RUQ pain [R10.11] INVALID FOR* Anxiety disorder [F41.9] INVALID FOR* Well adult exam [Z00.00] INVALID FOR* Undiagnosed cardiac murmurs [R01.1] INVALID FOR* Prescriptions ordered this encounter Disp Refills Start End ATORVASTATIN 20 MG TABLET 90 t* 3 02/17/2018 Route: ORAL Sig: Take 1 tablet by mouth daily at bedtime. For cholesterol. FLUOXETINE 20 MG CAPSULE 90 c* 3 02/17/2018 Route: ORAL Sig: Take 1 capsule by mouth once daily. Medications Discontinued During This Encounter atorvastatin (LIPITOR) 20 mg tablet 90 t* 3 11/20/2016 02/17/2018 Route: ORAL Sig: Take 1 tablet by mouth daily at bedtime. For cholesterol. Disc: Reason for discontinue is not on file. FLUoxetine (PROZAC) 20 mg capsule 90 c* 3 11/20/2016 02/17/2018 Route: ORAL Sig: Take 1 capsule by mouth once daily. Disc: Reason for discontinue is not on file. Encounter Status:Closed by CORY WILLINGHAM DO on 02/17/18 PROGRESS Observed: 02/17/2018 Status: COMPLETED Source: [place] 9:35 AM [facility] [place] REPOSITORY O ID: [id number] Author: Lizette Levine LPN Service: (none) Author Type: (none) Type: Progress Notes Filed: 02/17/2018 11:51 AM Note Text: 62 year old female here for INACTIVATED INFLUENZA VACCINE. [id number] Season Patient is identified by name and date of : Yes [] CONTRAINDICATIONS color enhanced section Age less than 6 months? No Allergy to eggs, chicken, chicken feathers, or chicken dander? No Allergy to thimerosal (a preservative) or formaldehyde, gelatin? No History of severe reaction to any vaccine component or a previous dose of influenza vaccination? No History of Guillain-[place]ernsey Syndrome within 6 weeks after a previous influenza vaccine? No Patient is not moderately or severely ill? No Current temperature greater or equal to 100.4F? No History of Bone Marrow Transplant prior 6 months or solid organ transplant in the past 3 months ? No History of fainting after a prior injection or medical procedure? No- ? If patient has fainted in the past, the CDC recommends sitting or lying down for 15 minutes after the vaccination. [] VERIFICATION color enhanced section Was the answer Yes for any of the above contraindications? No contraindications present. Acceptable to proceed with vaccine. Patient/guardian agrees the above answers are true to the best of their knowledge? Yes Flu vaccine information sheet given? Yes See immunization activity in [facility] for details of immunizations adminstered today. Patient age: [age] year old For The 1484-9746 Flu Season 6-35 months old: Fluzone 0.25 ml - IM (Preservative Free) 3 years of age: Fluzone 0.5 ml - IM (Preservative Free) 3 years and older: Fluzone 0.5 ml- IM-(with Preservatives) 65+ years old: 2-49 years old Fluzone High-Dose 0.5 ml - IM (Preservative Free) FLUMIST- intranasal REMEMBER: If patient is less than 9 years of age and this is the first vaccine of Influenza to be received in any flu season, they should receive a second dose in one months time. PROGRESS Observed: 01/28/2018 Status: COMPLETED Source: [place] 3:17 PM [facility] REPOSITORY O ID: [id number] Author: Viry Zarate Service: (none) Author Type: Nurse Practitioner Type: Progress Notes Filed: 01/28/2018 3:31 PM Note Text: Subjective The history is provided by the patient and a friend. No language therapist was used. Patient presents with: Cough: with congestion x 2 weeks HISTORY: Kevan Yoon is a 62 year old female who presents presents today with a complaint of cough present for last 3 week. She is also having sinus and congestion for 2 weeks and is getting worse. CHARACTERISTICS: dry PRECIPITATING/AGGRIVATING FACTORS: position ASSOCIATED SYMPTOMS: postnasal drip HISTORY: ASTHMA: No ENVIRONMENTAL ALLERGENS: No RECENT TRAVEL: No SMOKING: Yes, 40+ years PREVIOUS CHEST X-RAY: No BP 112/78 Pulse 68 Temp 37.1 ?C (98.8 ?F) (Left Tympanic) Resp 20 Wt 51.7 kg (114 lb) SpO2 98% BMI 19.57 kg/m? ALLERGIES No Known Allergies ACTIVE PROBLEM LIST Pure Hypercholesterolemia Ruq Pain Anxiety Disorder Well Adult Exam Undiagnosed Cardiac Murmurs Family History Problem Relation Age of Onset - Hypertension Father 89 - Stroke Father - other (chf) Father - Hypertension Mother Liver disease 72 - Cervical Cancer Mother - Stroke Paternal Grandmother - Heart Paternal Grandfather Social History Marital status: Spouse name: Years of education: Number of children: Social History Main Topics Smoking status: Current Every Day Smoker Packs/day: 0.50 Years: 40.00 Types: Cigarettes Start date: 03/22/1975 Smokeless tobacco: Never Used Alcohol use: No Drug use: No PAST MEDICAL HISTORY Diagnosis Date - Anxiety - GERD (gastroesophageal reflux disease) - Hypercholesteremia - MR (mitral regurgitation) - MVP (mitral valve prolapse) - Tobacco abuse Review of Systems Constitutional: Negative. Negative for chills, fever and malaise/fatigue. HENT: Positive for congestion (chest, and sinus) and sinus pain. Negative for ear pain and sore throat. Respiratory: Positive for cough, sputum production (yellow) and wheezing. Negative for shortness of breath. Cardiovascular: Negative for chest pain. Musculoskeletal: Positive for myalgias. Skin: Negative for rash. Neurological: Positive for headaches (sinus). Objective Physical Exam Constitutional: She is well-developed, well-nourished, and in no distress. HENT: Head: Normocephalic and atraumatic. Right Ear: Tympanic membrane, external ear and ear canal normal. Tympanic membrane is not injected, not erythematous, not retracted and not bulging. No middle ear effusion. Left Ear: Tympanic membrane, external ear and ear canal normal. Tympanic membrane is not injected, not erythematous, not retracted and not bulging. No middle ear effusion. Nose: Right sinus exhibits maxillary sinus tenderness and frontal sinus tenderness. Left sinus exhibits no maxillary sinus tenderness and no frontal sinus tenderness. Mouth/Throat: Uvula is midline and mucous membranes are normal. Posterior oropharyngeal erythema (mild) present. No oropharyngeal exudate, posterior oropharyngeal edema or tonsillar abscesses. Clear Post nasal drainage Eyes: Pupils are equal, round, and reactive to light. Conjunctivae and EOM are normal. Neck: Normal range of motion. Cardiovascular: Normal rate, regular rhythm and normal heart sounds. Pulmonary/Chest: Effort normal and breath sounds normal. No respiratory distress. She has no decreased breath sounds. She has no wheezes. She has no rhonchi. She has no rales. A dry cough was noted during this encounter. Talking in full sentences. Handling secretions without drooling. Lips and nailbeds are pink without cyanosis. Lymphadenopathy: Head (right side): No submental, no submandibular, no tonsillar, no preauricular and no posterior auricular adenopathy present. Head (left side): No submental, no submandibular, no tonsillar, no preauricular and no posterior auricular adenopathy present. She has no cervical adenopathy. Right cervical: No posterior cervical adenopathy present. Left cervical: No posterior cervical adenopathy present. Right: No supraclavicular adenopathy present. Left: No supraclavicular adenopathy present. Skin: Skin is warm and dry. Psychiatric: Affect normal. Nursing note and vitals reviewed. ASSESSMENT/PLAN: 1. Sinobronchitis - ICD9: 473.9, 490, ICD10: J32.9, J40 - Will begin treatment with Doxycline - -Increase fluid intake. Try to drink at least 8 glasses of non caffeinated fluids daily. --Rest as much as possible. -Do the nasal saline irrigation at least 2 x day to relieve nasal mucous and congestion: brands include Nathan Med, Simply saline, Linn nasal spray, or even the generic store brand one is ok. Take the entire course of antibiotics as prescribed. DO NOT stop taking it early, even if you are feeling better. -Practice good hygiene, wash hands frequently. -Monitor for signs of worsening infection: increased temperature, pain in face, ear pain or headaches or increase in nasal congestion/mucous that is not improving. -Educated patient on side effects of medication. Take 1-2 capsules tid prn - DOXYCYCLINE MONOHYDRATE 100 MG CAPSULE - BENZONATATE 100 MG CAPSULE * Seek medical care immediately, call 911, go to ER if you have chest pain, difficulty breathing, shortness of breath, inability to swallow. Diagnosis and treatment plan were discussed and questions were answered to the patient's satisfaction. Pt acknowledged understanding of concepts and follow up plan. Specific signs and symptoms that would indicate the need for higher level of care were discussed in detail warranting prompt ER evaluation. Viry Zarate APRN.CNP CNOV Observed: 01/28/2018 Status: COMPLETED Source: [place] 3:15 PM [facility] REPOSITORY Office Visit ([facility]) KARRIEKEVAN ([id number]) 1955 F Date Time Provider Department 01/28/18 3:15 PM VIRY ZARATE (SOFÍA) [facility] During your visit today, we recorded the following information about you: Temperature Pulse Respiration Blood pressure 98.8 degrees 68/minute 20/minute 112/78 Weight 51.7 kg Viry Zarate APRN.CNP 01/28/2018 3:31 PM Signed Subjective The history is provided by the patient and a friend. No language therapist was used. Patient presents with: Cough: with congestion x 2 weeks HISTORY: Kevan Yoon is a 62 year old female who presents presents today with a complaint of cough present for last 3 week. She is also having sinus and congestion for 2 weeks and is getting worse. CHARACTERISTICS: dry PRECIPITATING/AGGRIVATING FACTORS: position ASSOCIATED SYMPTOMS: postnasal drip HISTORY: ASTHMA: No ENVIRONMENTAL ALLERGENS: No RECENT TRAVEL: No SMOKING: Yes, 40+ years PREVIOUS CHEST X-RAY: No BP 112/78 Pulse 68 Temp 37.1 ?C (98.8 ?F) (Left Tympanic) Resp 20 Wt 51.7 kg (114 lb) SpO2 98% BMI 19.57 kg/m? ALLERGIES No Known Allergies ACTIVE PROBLEM LIST Pure Hypercholesterolemia Ruq Pain Anxiety Disorder Well Adult Exam Undiagnosed Cardiac Murmurs Family History Problem Relation Age of Onset - Hypertension Father 89 - Stroke Father - other (chf) Father - Hypertension Mother Liver disease 72 - Cervical Cancer Mother - Stroke Paternal Grandmother - Heart Paternal Grandfather Social History Marital status: Spouse name: Years of education: Number of children: Social History Main Topics Smoking status: Current Every Day Smoker Packs/day: 0.50 Years: 40.00 Types: Cigarettes Start date: 03/22/1975 Smokeless tobacco: Never Used Alcohol use: No Drug use: No PAST MEDICAL HISTORY Diagnosis Date - Anxiety - GERD (gastroesophageal reflux disease) - Hypercholesteremia - MR (mitral regurgitation) - MVP (mitral valve prolapse) - Tobacco abuse Review of Systems Constitutional: Negative. Negative for chills, fever and malaise/fatigue. HENT: Positive for congestion (chest, and sinus) and sinus pain. Negative for ear pain and sore throat. Respiratory: Positive for cough, sputum production (yellow) and wheezing. Negative for shortness of breath. Cardiovascular: Negative for chest pain. Musculoskeletal: Positive for myalgias. Skin: Negative for rash. Neurological: Positive for headaches (sinus). Objective Physical Exam Constitutional: She is well-developed, well-nourished, and in no distress. HENT: Head: Normocephalic and atraumatic. Right Ear: Tympanic membrane, external ear and ear canal normal. Tympanic membrane is not injected, not erythematous, not retracted and not bulging. No middle ear effusion. Left Ear: Tympanic membrane, external ear and ear canal normal. Tympanic membrane is not injected, not erythematous, not retracted and not bulging. No middle ear effusion. Nose: Right sinus exhibits maxillary sinus tenderness and frontal sinus tenderness. Left sinus exhibits no maxillary sinus tenderness and no frontal sinus tenderness. Mouth/Throat: Uvula is midline and mucous membranes are normal. Posterior oropharyngeal erythema (mild) present. No oropharyngeal exudate, posterior oropharyngeal edema or tonsillar abscesses. Clear Post nasal drainage Eyes: Pupils are equal, round, and reactive to light. Conjunctivae and EOM are normal. Neck: Normal range of motion. Cardiovascular: Normal rate, regular rhythm and normal heart sounds. Pulmonary/Chest: Effort normal and breath sounds normal. No respiratory distress. She has no decreased breath sounds. She has no wheezes. She has no rhonchi. She has no rales. A dry cough was noted during this encounter. Talking in full sentences. Handling secretions without drooling. Lips and nailbeds are pink without cyanosis. Lymphadenopathy: Head (right side): No submental, no submandibular, no tonsillar, no preauricular and no posterior auricular adenopathy present. Head (left side): No submental, no submandibular, no tonsillar, no preauricular and no posterior auricular adenopathy present. She has no cervical adenopathy. Right cervical: No posterior cervical adenopathy present. Left cervical: No posterior cervical adenopathy present. Right: No supraclavicular adenopathy present. Left: No supraclavicular adenopathy present. Skin: Skin is warm and dry. Psychiatric: Affect normal. Nursing note and vitals reviewed. ASSESSMENT/PLAN: 1. Sinobronchitis - ICD9: 473.9, 490, ICD10: J32.9, J40 - Will begin treatment with Doxycline - -Increase fluid intake. Try to drink at least 8 glasses of non caffeinated fluids daily. --Rest as much as possible. -Do the nasal saline irrigation at least 2 x day to relieve nasal mucous and congestion: brands include Nathan Med, Simply saline, Linn nasal spray, or even the generic store brand one is ok. Take the entire course of antibiotics as prescribed. DO NOT stop taking it early, even if you are feeling better. -Practice good hygiene, wash hands frequently. -Monitor for signs of worsening infection: increased temperature, pain in face, ear pain or headaches or increase in nasal congestion/mucous that is not improving. -Educated patient on side effects of medication. Take 1-2 capsules tid prn - DOXYCYCLINE MONOHYDRATE 100 MG CAPSULE - BENZONATATE 100 MG CAPSULE * Seek medical care immediately, call 911, go to ER if you have chest pain, difficulty breathing, shortness of breath, inability to swallow. Diagnosis and treatment plan were discussed and questions were answered to the patient's satisfaction. Pt acknowledged understanding of concepts and follow up plan. Specific signs and symptoms that would indicate the need for higher level of care were discussed in detail warranting prompt ER evaluation. YVES Dahl APRN.CNP 01/28/2018 3:25 PM Signed ASSESSMENT/PLAN: 1. Sinobronchitis - ICD9: 473.9, 490, ICD10: J32.9, J40 - Will begin treatment with Doxycline - -Increase fluid intake. Try to drink at least 8 glasses of non caffeinated fluids daily. --Rest as much as possible. -Do the nasal saline irrigation at least 2 x day to relieve nasal mucous and congestion: brands include Nathan Med, Simply saline, Linn nasal spray, or even the generic store brand one is ok. Take the entire course of antibiotics as prescribed. DO NOT stop taking it early, even if you are feeling better. -Practice good hygiene, wash hands frequently. -Monitor for signs of worsening infection: increased temperature, pain in face, ear pain or headaches or increase in nasal congestion/mucous that is not improving. -Educated patient on side effects of medication. Take 1-2 capsules tid prn - DOXYCYCLINE MONOHYDRATE 100 MG CAPSULE - BENZONATATE 100 MG CAPSULE * Seek medical care immediately, call 911, go to ER if you have chest pain, difficulty breathing, shortness of breath, inability to swallow. Referring Provider: SELF [[id number]] Allergies As of Date: 01/28/2018 (No Known Allergies) Date Reviewed: 01/28/2018 Reviewed by: Viry Zarate - Fully Assessed Reason for Visit: Cough [28] Cmt: with congestion x 2 weeks Reason For Visit History Recorded Primary Visit Diagnosis:Sinobronchitis [J32.9, J40] Order(s):doxycycline monohydrate (MONODOX) 100 mg capsuleTake 1-2 capsules tid prnDisp: 30 capsuleRfl: 0 benzonatate (TESSALON PERLE) 100 mg capsuleTake 1 capsule by mouth three times daily as needed.Disp: 30 capsuleRfl: 0 Prescriptions as of 01/28/2018 Sig: LANSOPRAZOLE 30 MG CAPSULE,DE* Take 1 capsule by mouth twice* FEXOFENADINE 180 MG TABLET Take 1 tablet by mouth once d* FLUTICASONE 50 MCG/ACTUATION * Use 2 Sprays in each nostril * ATORVASTATIN 20 MG TABLET Take 1 tablet by mouth daily * FLUOXETINE 20 MG CAPSULE Take 1 capsule by mouth once * ASPIRIN 81 MG TABLET,DELAYED * Take 81 mg by mouth once chris* DOXYCYCLINE MONOHYDRATE 100 M* Take 1-2 capsules tid prn BENZONATATE 100 MG CAPSULE Take 1 capsule by mouth three* Problem List As Of Date 01/28/2018 Noted Resolved Pure hypercholesterolemia [E78.00] INVALID FOR* RUQ pain [R10.11] INVALID FOR* Anxiety disorder [F41.9] INVALID FOR* Well adult exam [Z00.00] INVALID FOR* Undiagnosed cardiac murmurs [R01.1] INVALID FOR* Other instructions from your clinician: ASSESSMENT/PLAN: 1. Sinobronchitis - ICD9: 473.9, 490, ICD10: J32.9, J40 - Will begin treatment with Doxycline - -Increase fluid intake. Try to drink at least 8 glasses of non caffeinated fluids daily. --Rest as much as possible. -Do the nasal saline irrigation at least 2 x day to relieve nasal mucous and congestion: brands include Nathan Med, Simply saline, Linn nasal spray, or even the generic store brand one is ok. Take the entire course of antibiotics as prescribed. DO NOT stop taking it early, even if you are feeling better. -Practice good hygiene, wash hands frequently. -Monitor for signs of worsening infection: increased temperature, pain in face, ear pain or headaches or increase in nasal congestion/mucous that is not improving. -Educated patient on side effects of medication. Take 1-2 capsules tid prn - DOXYCYCLINE MONOHYDRATE 100 MG CAPSULE - BENZONATATE 100 MG CAPSULE * Seek medical care immediately, call 911, go to ER if you have chest pain, difficulty breathing, shortness of breath, inability to swallow. Prescriptions ordered this encounter Disp Refills Start End DOXYCYCLINE MONOHYDRATE 100 MG CAPSU* 30 c* 0 01/28/2018 Sig: Take 1-2 capsules tid prn BENZONATATE 100 MG CAPSULE 30 c* 0 01/28/2018 Route: ORAL Sig: Take 1 capsule by mouth three times daily as needed. Encounter Status:Closed by VIRY ZARATE CNP on 01/28/18 PROGRESS Observed: 09/21/2017 Status: COMPLETED Source: [place] 9:05 AM [facility] [place] REPOSITORY HNO ID: [id number] Author: Daily Hager (Sofía) Service: (none) Author Type: Nurse Practitioner Type: Progress Notes Filed: 09/21/2017 11:11 AM Note Text: 09/21/2017 Patient presents with: ER F/U: b/p unstable, pt states er thought she was lactose intolerate.Pt states been off dairy and feels better. SUBJECTIVE: This is a 62 year old that is here today for Above Complaints. Seen in [facility] on 09/15/2017 for c/o intermittent headache. Per ER report patient's BP has been fluctuating at home with the highest recorded BP being 189/90. A CT of the head was completed which showed no intracranial process. BMP was normal. Today she presents for a follow-up. Since her ER visit she has been recording her blood pressures at home. Getting anywhere from 139-189/80-89. Is wondering if it was due to pain from her lactose intolerance that she just found out she had. Thinks also some stress has been contributing to some higher pressures. Denies lightheadedness, dizziness, headaches, blurry/double vision, SOB, wheezing, dyspnea, chest pain, palpitations, numbness, tingling, weakness of extremities. PAST MEDICAL HISTORY Diagnosis Date - Anxiety - GERD (gastroesophageal reflux disease) - Hypercholesteremia - MR (mitral regurgitation) - MVP (mitral valve prolapse) - Tobacco abuse ALLERGIES Patient has no known allergies. MEDICATIONS Current Outpatient Prescriptions: lansoprazole (PREVACID) 30 mg capsule Take 1 capsule by mouth twice daily. fexofenadine (MICHAEL ALLERGY) 180 mg tablet Take 1 tablet by mouth once daily. polyethylene glycol 3350 (MIRALAX) 17 gram/dose powder Take 17 g by mouth once daily. fluticasone (FLONASE) 50 mcg/actuation nasal spray Use 2 Sprays in each nostril once daily. Rinse mouth after use. atorvastatin (LIPITOR) 20 mg tablet Take 1 tablet by mouth daily at bedtime. For cholesterol. FLUoxetine (PROZAC) 20 mg capsule Take 1 capsule by mouth once daily. aspirin, enteric coated (ASPIRIN, ENTERIC COATED) 81 mg EC tablet Take 81 mg by mouth once daily. No current facility-administered medications for this visit. Medications and allergies reviewed by this provider. SOCIAL HISTORY Social History Marital status: Spouse name: Years of education: Number of children: Social History Main Topics Smoking status: Current Every Day Smoker Packs/day: 0.50 Years: 40.00 Types: Cigarettes Start date: 03/22/1975 Smokeless tobacco: Never Used Alcohol use: No Drug use: No REVIEW OF SYSTEMS GENERAL: No weight loss, malaise or fevers NECK: Negative for lumps, goiter, pain and significant neck swelling RESPIRATORY: Negative for cough, hemoptysis, wheezing, COPD, dyspnea or shortness of breath CARDIOVASCULAR: Negative for chest pain, leg swelling, hypertension, CHF or palpitations All other reviewed and negative other than HPI. OBJECTIVE: BP 120/62 (BP Site: Left Arm, BP Position: Sitting, BP Cuff Size: Regular Adult) Pulse (!) 52 Resp 16 Wt 50.8 kg (112 lb 1.3 oz) BMI 19.24 kg/m? . Vital signs reviewed by this provider. APPEARANCE Well appearing, alert, in no acute distress, well-hydrated, well nourished. THROAT normal, no erythema NECK Supple, no adenopathy; thyroid symmetric, normal size, no bruits HEART RRR with normal S1 and S2, no gallops, no JVD appreciated and Murmur 2/6 heard best at RUSB EXTREMITIES Extremities normal, No deformities, No skin discoloration, No edema and Normal pulses bilaterally. NEURO Awake, alert and oriented x 3, Cranial nerves II-XII grossly intact, Reflexes symmetrical, Normal gait and No involuntary motions. ASSESSMENT/PLAN: 1. Elevated blood pressure reading without diagnosis of hypertension - ICD9: 796.2, ICD10: R03.0 (primary diagnosis) Transient BP elevation or related to recent stress - Encouraged dietary sodium restriction/DASH diet - Recommended regular aerobic exercise. - Recommend home blood pressure monitoring, to bring results in on next visit - Encouraged avoidance of excessive alcohol intake - discussed taking blood pressure first thing in the morning after emptying bladder and recording result- three time a week. Also if experiencing visual changes, lightheadedness, or dizziness. Red flag symptoms discussed, patient and verbalize understanding - Goal of BP <140/90 - Patient counseled on smoking cessation. - Recheck in 2 week, and nurse visit, bring home cuff for validation sooner if needed. To ER with red flag symptoms. 2. Screening for breast cancer - ICD9: V76.10, ICD10: Z12.31 - Follow up for annual exam in one year. - [facility] SCREENING Daily Podloghellen, CURB SETTER.KEYLINER Prescription instructions reviewed with patient as applicable. Patient advised if symptoms do not improve or if symptoms worsen sooner, to contact their primary care physician. Potential red flag symptoms discussed with the patient. Reviewed appropriate action plan to take if red flag symptoms occur. Patient agreeable to treatment plan. BENITEZ Observed: 09/21/2017 Status: COMPLETED Source: [place] 9:00 AM [facility] REPOSITORY Office Visit (FAMPWS) KEVAN YOON ([id number]) 1955 F Date Time Provider Department 09/21/17 9:00 AM DAILY HAGER ([facility] During your visit today, we recorded the following information about you: Pulse Respiration Blood pressure Weight 52/minute 16/minute 120/62 50.8 kg Daily Hager (Sofía) 09/21/2017 11:11 AM Signed 09/21/2017 Patient presents with: ER F/U: b/p unstable, pt states er thought she was lactose intolerate.Pt states been off dairy and feels better. SUBJECTIVE: This is a 62 year old that is here today for Above Complaints. Seen in [facility] on 09/15/2017 for c/o intermittent headache. Per ER report patient's BP has been fluctuating at home with the highest recorded BP being 189/90. A CT of the head was completed which showed no intracranial process. BMP was normal. Today she presents for a follow-up. Since her ER visit she has been recording her blood pressures at home. Getting anywhere from 139-189/80-89. Is wondering if it was due to pain from her lactose intolerance that she just found out she had. Thinks also some stress has been contributing to some higher pressures. Denies lightheadedness, dizziness, headaches, blurry/double vision, SOB, wheezing, dyspnea, chest pain, palpitations, numbness, tingling, weakness of extremities. PAST MEDICAL HISTORY Diagnosis Date - Anxiety - GERD (gastroesophageal reflux disease) - Hypercholesteremia - MR (mitral regurgitation) - MVP (mitral valve prolapse) - Tobacco abuse ALLERGIES Patient has no known allergies. MEDICATIONS Current Outpatient Prescriptions: lansoprazole (PREVACID) 30 mg capsule Take 1 capsule by mouth twice daily. fexofenadine (MICHAEL ALLERGY) 180 mg tablet Take 1 tablet by mouth once daily. polyethylene glycol 3350 (MIRALAX) 17 gram/dose powder Take 17 g by mouth once daily. fluticasone (FLONASE) 50 mcg/actuation nasal spray Use 2 Sprays in each nostril once daily. Rinse mouth after use. atorvastatin (LIPITOR) 20 mg tablet Take 1 tablet by mouth daily at bedtime. For cholesterol. FLUoxetine (PROZAC) 20 mg capsule Take 1 capsule by mouth once daily. aspirin, enteric coated (ASPIRIN, ENTERIC COATED) 81 mg EC tablet Take 81 mg by mouth once daily. No current facility-administered medications for this visit. Medications and allergies reviewed by this provider. SOCIAL HISTORY Social History Marital status: Spouse name: Years of education: Number of children: Social History Main Topics Smoking status: Current Every Day Smoker Packs/day: 0.50 Years: 40.00 Types: Cigarettes Start date: 03/22/1975 Smokeless tobacco: Never Used Alcohol use: No Drug use: No REVIEW OF SYSTEMS GENERAL: No weight loss, malaise or fevers NECK: Negative for lumps, goiter, pain and significant neck swelling RESPIRATORY: Negative for cough, hemoptysis, wheezing, COPD, dyspnea or shortness of breath CARDIOVASCULAR: Negative for chest pain, leg swelling, hypertension, CHF or palpitations All other reviewed and negative other than HPI. OBJECTIVE: BP 120/62 (BP Site: Left Arm, BP Position: Sitting, BP Cuff Size: Regular Adult) Pulse (!) 52 Resp 16 Wt 50.8 kg (112 lb 1.3 oz) BMI 19.24 kg/m? . Vital signs reviewed by this provider. APPEARANCE Well appearing, alert, in no acute distress, well- hydrated, well nourished. THROAT normal, no erythema NECK Supple, no adenopathy; thyroid symmetric, normal size, no bruits HEART RRR with normal S1 and S2, no gallops, no JVD appreciated and Murmur 2/6 heard best at RUSB EXTREMITIES Extremities normal, No deformities, No skin discoloration, No edema and Normal pulses bilaterally. NEURO Awake, alert and oriented x 3, Cranial nerves II-XII grossly intact, Reflexes symmetrical, Normal gait and No involuntary motions. ASSESSMENT/PLAN: 1. Elevated blood pressure reading without diagnosis of hypertension - ICD9: 796.2, ICD10: R03.0 (primary diagnosis) Transient BP elevation or related to recent stress - Encouraged dietary sodium restriction/DASH diet - Recommended regular aerobic exercise. - Recommend home blood pressure monitoring, to bring results in on next visit - Encouraged avoidance of excessive alcohol intake - discussed taking blood pressure first thing in the morning after emptying bladder and recording result- three time a week. Also if experiencing visual changes, lightheadedness, or dizziness. Red flag symptoms discussed, patient and verbalize understanding - Goal of BP <140/90 - Patient counseled on smoking cessation. - Recheck in 2 week, and nurse visit, bring home cuff for validation sooner if needed. To ER with red flag symptoms. 2. Screening for breast cancer - ICD9: V76.10, ICD10: Z12.31 - Follow up for annual exam in one year. - DHARA SCREENING Daily Podloghellen, CURB SETTER.[facility] Prescription instructions reviewed with patient as applicable. Patient advised if symptoms do not improve or if symptoms worsen sooner, to contact their primary care physician. Potential red flag symptoms discussed with the patient. Reviewed appropriate action plan to take if red flag symptoms occur. Patient agreeable to treatment plan. Daily Hager (Powder Worker) 09/21/2017 9:50 AM Addendum If you develop worst headache of your life, confusion, slurred speech, numbness, tingling, weakness of legs or arms, chest pain, difficulty breathing call 9-1-1 Take blood pressure first thing in the morning after you empty your bladder. Take blood pressure three times a week and record, if readings are greater than or equal to 140/90 consistently let us know. Referring Provider: CORY WILLINGHAM [[id number]] Allergies As of Date: 09/21/2017 (No Known Allergies) Date Reviewed: 09/21/2017 Reviewed by: Nannette Hernandez LPN - Fully Assessed Reason for Visit: ER F/U [41] Cmt: b/p unstable, pt states er thought she was lactose intolerate.Pt states been off diary and feels better. Primary Visit Diagnosis:Elevated blood pressure reading without diagnosis of hypertension [R03.0] Other Visit Diagnosis:Screening for breast cancer [Z12.31] Order(s):[facility] SCREENING [[id number]] Order #: [id number] FUTURE Prescriptions as of 09/21/2017 Sig: LANSOPRAZOLE 30 MG CAPSULE,DE* Take 1 capsule by mouth twice* FEXOFENADINE 180 MG TABLET Take 1 tablet by mouth once d* POLYETHYLENE GLYCOL 3350 17 G* Take 17 g by mouth once daily. FLUTICASONE 50 MCG/ACTUATION * Use 2 Sprays in each nostril * ATORVASTATIN 20 MG TABLET Take 1 tablet by mouth daily * FLUOXETINE 20 MG CAPSULE Take 1 capsule by mouth once * ASPIRIN 81 MG TABLET,DELAYED * Take 81 mg by mouth once chirs* Problem List As Of Date 09/21/2017 Noted Resolved Pure hypercholesterolemia [E78.00] INVALID FOR* RUQ pain [R10.11] INVALID FOR* Anxiety disorder [F41.9] INVALID FOR* Well adult exam [Z00.00] INVALID FOR* Undiagnosed cardiac murmurs [R01.1] INVALID FOR* Other instructions from your clinician: If you develop worst headache of your life, confusion, slurred speech, numbness, tingling, weakness of legs or arms, chest pain, difficulty breathing call 9-1-1 Take blood pressure first thing in the morning after you empty your bladder. Take blood pressure three times a week and record, if readings are greater than or equal to 140/90 consistently let us know. Follow-up and Disposition History Recorded Encounter Status:Closed by PODLOGARDAILY CNP on 09/21/17 CNCO Observed: 09/21/2017 Status: COMPLETED Source: [place] 12:00 AM [facility] REPOSITORY Letter Text [phone] [phone] Kevan Yoon [address] [id number] Clinic #: [id number] 09/21/2017 Dear Ms. Yoon, I have received the results of your recent tests. Normal Cholesterol. Continue on current dose of lipitor and healthy diet and exercise. Maame Amaral APRN.CNP We can discuss this at your next visit. Please do not hesitate to contact me with any questions. Sincerely, Maame Amaral APRN.CNP electronically signed to expedite mailing LIPID PANEL, BASIC Collected: 09/18/2017 Status: F Source: [place] 8:07 AM [facility] REPOSITORY TYPE CODE TESTS RESULT OUT OF REFERENCE UNITS RANGE LAB CHOL <200 mg/dL Cholesterol 155 Result Comment: <200 mg/dL, Desirable 200-239 mg/dL, Borderline high >239 mg/dL, High LAB TRIGLY <150 mg/dL Triglyceride 82 Result Comment: <150 mg/dL, Normal 150-199 mg/dL, Borderline high 200-499 mg/dL, High >499 mg/dL, Very high LAB HDL >39 mg/dL HDL-Cholesterol 42 Result Comment: 40-59 mg/dL, Acceptable >59 mg/dL, High: Negative risk factor for coronary heart disease <40 mg/dL, Low: Positive risk factor for coronary heart disease LAB LDL <100 mg/dL LDL-Cholesterol 97 Result Comment: <100 mg/dL, Optimal 100-129 mg/dL, Near optimal/above optimal 130-159 mg/dL, Borderline high 160-189 mg/dL, High >189 mg/dL, Very high Secondary prevention optimal LDL Cholesterol levels are recommended to be < 70 mg/dL LAB NONHDL <130 mg/dL Non HDL Cholesterol 113 Result Comment: <130 mg/dL, Optimal 130-159 mg/dL, Near optimal/above optimal 160-189 mg/dL, Borderline high 190-219 mg/dL, High >219 mg/dL, Very high Secondary prevention optimal non HDL Cholesterol levels are recommended to be < 100 mg/dL LAB FT hrs Fasting Time 10 LAB VLDL <30 mg/dL VLDL Cholesterol 16 LAB TCHDL <5.10 TC:HDL Ratio 3.69 LAB LDLHDL <2.54 LDL:HDL Ratio 2.31 Result Comment: Reference: 1. National Cholesterol Education Program ATP III Guideline At-A-Glance Quick Desk Reference: National Heart, Lung, and Blood [place]. National Institutes of Health. 2001: NIH Publication No. 01-3305. 2. An International Atherosclerosis Society position paper: global recommendations for the management of dyslipidemia: executive summary, Atherosclerosis. 2014: 232(2):410-413. Performed By: #### LIPB #### [facility] [address], [place] [address] CNNURSE Observed: 09/18/2017 Status: COMPLETED Source: [place] 8:00 AM [facility] REPOSITORY Nurse Visit (GASTW) KARRIEKEVAN M ([id number]) 1955 F Date Time Provider Department 09/18/17 8:00 AM NURSE PRECIOUS [facility] During your visit today, we recorded the following information about you: Bassam Mcwilliams LPN 09/18/2017 8:36 AM Signed Patient here for a Lactose test. Lactose drink (Lactose Monohydrate powder 50 grams in 400 ml water) administered 8:15 am after the first blood draw. Lot # [id number], Exp Date 09/22/18. Patient tolerated well. Bassam Mcwilliams LPN Referring Provider: SANCHEZ SOLOMON (PAPERBACK MACHINE OPERATOR) [[id number]] Allergies As of Date: 09/18/2017 (No Known Allergies) Date Reviewed: 09/18/2017 Reviewed by: Bassam Mcwilliams LPN - Fully Assessed Reason for Visit: lactose tolerance testing [Other] Primary Visit Diagnosis:Gas pain [R14.1] Other Visit Diagnosis:Abdominal bloating [R14.0] Prescriptions as of 09/18/2017 Sig: LANSOPRAZOLE 30 MG CAPSULE,DE* Take 1 capsule by mouth twice* FEXOFENADINE 180 MG TABLET Take 1 tablet by mouth once d* POLYETHYLENE GLYCOL 3350 17 G* Take 17 g by mouth once daily. FLUTICASONE 50 MCG/ACTUATION * Use 2 Sprays in each nostril * ATORVASTATIN 20 MG TABLET Take 1 tablet by mouth daily * FLUOXETINE 20 MG CAPSULE Take 1 capsule by mouth once * ASPIRIN 81 MG TABLET,DELAYED * Take 81 mg by mouth once chris* Problem List As Of Date 09/18/2017 Noted Resolved Pure hypercholesterolemia [E78.00] INVALID FOR* RUQ pain [R10.11] INVALID FOR* Anxiety disorder [F41.9] INVALID FOR* Well adult exam [Z00.00] INVALID FOR* Undiagnosed cardiac murmurs [R01.1] INVALID FOR* Visit Notes: >> PoppyBassam horan Lynn ORTEGA ThuSeptember 18, 2017 8:31 AM Status: Signed Patient here for a Lactose test. Lactose drink (Lactose Monohydrate powder 50 grams in 400 ml water) administered 8:15 am after the first blood draw. Lot # [id number], Exp Date 09/22/18. Patient tolerated well. Bassam Bailey Poppy [place] Encounter Status:Closed by BASSAM MCWILLIAMS LPN on 09/18/17 LACTOSE TOLERANCE Collected: 09/18/2017 Status: F Source: [place] 7:52 AM [facility] REPOSITORY TYPE CODE TESTS RESULT OUT OF REFERENCE UNITS RANGE LAB GLUL0 74-99 mg/dL Glucose, 90 Fasting LAB GLUL30 mg/dL Glucose, 30 119 min Result Comment: Normal response is increase in glucose >20 mg/dL above fasting value. LAB GLUL60 mg/dL Glucose, 60 min 67 Result Comment: Normal response is increase in glucose >20 mg/dL above fasting value. LAB GLUL90 mg/dL Glucose, 90 min 65 Result Comment: Normal response is increase in glucose >20 mg/dL above fasting value. LAB GLULH2 mg/dL Glucose, 120 min 75 Result Comment: Normal response is increase in glucose >20 mg/dL above fasting value. Performed By: #### LACTT #### [facility] [address] [place], [place] [address] PROGRESS Observed: 09/17/2017 Status: COMPLETED Source: [place] 8:35 AM [facility] REPOSITORY HNO ID: [id number] Author: Sanchez Solomon Service: (none) Author Type: Nurse Practitioner Type: Progress Notes Filed: 09/17/2017 9:21 AM Note Text: Kevan Yoon a 62 year old female who is a consultation requested by Dr. Rosa for an opinion regarding altered bowel habits. My final recommendations will be communicated back to the requesting physician by way of shared Medical record. The patient has not been seen previously. The patient denies a family history of colon cancer. The patient was seen by Dr. Cheung for and EGD and screening colonoscopy . The procedure report has been reviewed and findings as follows: EGD Findings: ? ? ?The examined duodenum was normal. ? ? ?Localized minimal inflammation characterized by erythema was found in ? ? ?the gastric antrum. Biopsies were taken with a cold forceps for ? ? ?histology. ? ? ?The examined esophagus was normal. Colonoscopy Findings: ? ? ?The perianal and digital rectal examinations were normal. ? ? ?A 6 mm polyp was found in the recto-sigmoid colon. The polyp was ? ? ?sessile. The polyp was removed with a hot snare. Resection and retrieval ?were complete. Verification of patient identification for the specimen ? ? ?was done. ? ? ?The exam was otherwise without abnormality. ? ? ?The retroflexed view of the distal rectum and anal verge was normal and ? ? ?showed no anal or rectal abnormalities. FINAL DIAGNOSIS 1. Antrum, biopsy (A) - Antral mucosa with chronic inactive gastritis. - H. pylori immunostain performed to further evaluate the inactive gastritis on the antrum biopsy (part A) is negative for organisms. 2. Rectosigmoid colon, polypectomy (B) - Tubular adenoma The patient was seen by Amanda Penaloza NP, on 08/18/17, leading to this consultation. That note has been reviewed and part as follows: presents for Recheck. Reports improved GERD symptoms with H. Pylori treatment and daily prevacid. Continues to experience lower abdominal bloating, + flatus, constipation and feeling of incomplete bowel evacuation, one hard BM daily. No change in appetite. Denies fever, chills, N/V, diarrhea, UTI symptoms. Presenting complaint: The patient presents today reporting that she took the entire prescription for the Hpylori treatment. The patient tells me that she sometimes gets pain in the epigastric region that can radiate into her back. She had a cholecystectomy in 1989. The patient takes Prilosec twice a day. She tells me that she also has reflux and supplements with antacids. Having a bowel movement once a day. Using Miralax once a day. No blood or black stool. The patient reports bloating and gas that increases as the day goes on. She has milk on cereal. She drinks lots of coffee with a lot of milk in my coffee. Also loves ice cream. We discussed lactose intolerance. REVIEW OF SYSTEMS: GENERAL: No weight loss, malaise or fevers RESPIRATORY: Negative for cough, hemoptysis, wheezing, COPD, dyspnea or shortness of breath CARDIOVASCULAR: Hypertension and hyperlipidemia. GI: The patient states that her appetite has been good. She does get hungry. There has been some nausea, at night, when laying on her right side. No vomiting. She denies dysphagia and denies odynophagia. There has been indigestion with heartburn, in spite of the Prilosec. There has partially been regurgitation. Bowel habits have been regular. There has not been diarrhea. There has partially been constipation. The patient denies rectal bleeding. There has not been melena. Intermittent abdominal pain that is located in the epigastric region, as reported above. COOK RAILROAD: Negative for abnormal vaginal bleeding, abnormal vaginal discharge. HEMATOLOGY/LYMPHOLOGY Negative for prolonged bleeding, bruising easily or swollen nodes ENDOCRINE: Negative for diabetes or thyroid disease. NEURO: No history of headaches, syncope, paralysis, seizures or tremors All other reviewed and negative other than HPI. PAST MEDICAL HISTORY Diagnosis Date - Anxiety - GERD (gastroesophageal reflux disease) - Hypercholesteremia - MR (mitral regurgitation) - MVP (mitral valve prolapse) - Tobacco abuse PAST SURGICAL HISTORY Procedure Laterality Date - APPENDECTOMY 1964 - COLONOS W/REM POLYP SNARE 04/27/15 small polyp -5 year follow up - EGD W/O BRSH SPECIMEN W/BX 04/27/15 gastritis - REMOVAL GALLBLADDER 1989 Cholecystectomy FAMILY HISTORY Problem Relation Age of Onset - Hypertension Father 89 - Stroke Father - chf [OTHER] Father - Hypertension Mother Liver disease 72 - Cervical Cancer Mother - Stroke Paternal Grandmother - Heart Paternal Grandfather Current Outpatient Prescriptions: lansoprazole (PREVACID) 30 mg capsule Take 1 capsule by mouth twice daily. Disp: 90 capsule Rfl: 3 fexofenadine (MICHAEL ALLERGY) 180 mg tablet Take 1 tablet by mouth once daily. Disp: 90 tablet Rfl: 3 polyethylene glycol 3350 (MIRALAX) 17 gram/dose powder Take 17 g by mouth once daily. Disp: 1530 g Rfl: 0 fluticasone (FLONASE) 50 mcg/actuation nasal spray Use 2 Sprays in each nostril once daily. Rinse mouth after use. Disp: 1 Bottle Rfl: 1 atorvastatin (LIPITOR) 20 mg tablet Take 1 tablet by mouth daily at bedtime. For cholesterol. Disp: 90 tablet Rfl: 3 FLUoxetine (PROZAC) 20 mg capsule Take 1 capsule by mouth once daily. Disp: 90 capsule Rfl: 3 aspirin, enteric coated (ASPIRIN, ENTERIC COATED) 81 mg EC tablet Take 81 mg by mouth once daily. Disp: Rfl: No current facility-administered medications for this visit. SOCIAL HISTORY: Patient is . She smokes 1/2 ppd and reports her alcohol use as never. PHYSICAL EXAMINATION: Blood pressure 152/89, pulse 62, height 162.6 cm (5' 4), weight 50.8 kg (112 lb). General Appearance: Well appearing, alert, in no acute distress, well-hydrated, well nourished. Skin: Skin color, texture, turgor normal, no suspicious rashes or lesions. Head: Normocephalic, no masses, lesions, tenderness or abnormalities. Eyes: Anicteric sclera. Pupils are equally round and reactive to light. Extraocular movements are intact. Oropharynx: Lips, mucosa, and tongue normal, oropharynx normal. Teeth in fair repair. Neck: Supple, no adenopathy; thyroid symmetric, normal size. Lungs: Lungs clear to auscultation. No wheezing, rhonchi, rales. Heart: RRR without murmur. Abdomen: Abdomen soft, non-tender. Bowel sounds normal. No masses, organomegaly. Extremities: No deformities, edema, skin discoloration, clubbing or cyanosis. Peripheral Pulses: Normal. Neurologic: Gait normal. Reflexes normal and symmetric. Sensation grossly intact. Lymph Nodes: No cervical lymphadenopathy, No supraclavicular lymphadenopathy and No axillary lymphadenopathy.. Impression: GERD 2)recent treatment for Hpylori 3)probable lactose intolerance. Plan: Continue current medications. Lactose tolerance test. Consider EGD if symptoms persist. She agrees with this plan. I have personally interviewed and examined this patient. I have reviewed the information that the MA entered for this encounter. Greater than 30 minutes total time used this visit to review old chart, review new information, update current history and evaluate patient. A majority of the time was spent in discussion and counseling to formulate the plan. Sanchez Solomon RN APRN.KEYLINER CNOV Observed: 09/17/2017 Status: COMPLETED Source: [place] 8:20 AM [facility] REPOSITORY Office Visit (GASTWC) KEVAN YOON ([id number]) 1955 F Date Time Provider Department 09/17/17 8:20 AM SANCHEZ SOLOMON) [facility] During your visit today, we recorded the following information about you: Pulse Blood pressure Weight Height 62/minute 152/89 50.8 kg 1.626 m Sanchez Solomon RN CURB SETTER.[facility] 09/17/2017 9:21 AM Signed Kevan Yoon a 62 year old female who is a consultation requested by Dr. Rosa for an opinion regarding altered bowel habits. My final recommendations will be communicated back to the requesting physician by way of shared Medical record. The patient has not been seen previously. The patient denies a family history of colon cancer. The patient was seen by Dr. Cheung for and EGD and screening colonoscopy . The procedure report has been reviewed and findings as follows: EGD Findings: ? ? ?The examined duodenum was normal. ? ? ?Localized minimal inflammation characterized by erythema was found in ? ? ?the gastric antrum. Biopsies were taken with a cold forceps for ? ? ?histology. ? ? ?The examined esophagus was normal. Colonoscopy Findings: ? ? ?The perianal and digital rectal examinations were normal. ? ? ?A 6 mm polyp was found in the recto-sigmoid colon. The polyp was ? ? ?sessile. The polyp was removed with a hot snare. Resection and retrieval ?were complete. Verification of patient identification for the specimen ? ? ?was done. ? ? ?The exam was otherwise without abnormality. ? ? ?The retroflexed view of the distal rectum and anal verge was normal and ? ? ?showed no anal or rectal abnormalities. FINAL DIAGNOSIS 1. Antrum, biopsy (A) - Antral mucosa with chronic inactive gastritis. - H. pylori immunostain performed to further evaluate the inactive gastritis on the antrum biopsy (part A) is negative for organisms. 2. Rectosigmoid colon, polypectomy (B) - Tubular adenoma The patient was seen by Amanda Penaloza NP, on 08/18/17, leading to this consultation. That note has been reviewed and part as follows: presents for Recheck. Reports improved GERD symptoms with H. Pylori treatment and daily prevacid. Continues to experience lower abdominal bloating, + flatus, constipation and feeling of incomplete bowel evacuation, one hard BM daily. No change in appetite. Denies fever, chills, N/V, diarrhea, UTI symptoms. Presenting complaint: The patient presents today reporting that she took the entire prescription for the Hpylori treatment. The patient tells me that she sometimes gets pain in the epigastric region that can radiate into her back. She had a cholecystectomy in 1989. The patient takes Prilosec twice a day. She tells me that she also has reflux and supplements with antacids. Having a bowel movement once a day. Using Miralax once a day. No blood or black stool. The patient reports bloating and gas that increases as the day goes on. She has milk on cereal. She drinks lots of coffee with a lot of milk in my coffee. Also loves ice cream. We discussed lactose intolerance. REVIEW OF SYSTEMS: GENERAL: No weight loss, malaise or fevers RESPIRATORY: Negative for cough, hemoptysis, wheezing, COPD, dyspnea or shortness of breath CARDIOVASCULAR: Hypertension and hyperlipidemia. GI: The patient states that her appetite has been good. She does get hungry. There has been some nausea, at night, when laying on her right side. No vomiting. She denies dysphagia and denies odynophagia. There has been indigestion with heartburn, in spite of the Prilosec. There has partially been regurgitation. Bowel habits have been regular. There has not been diarrhea. There has partially been constipation. The patient denies rectal bleeding. There has not been melena. Intermittent abdominal pain that is located in the epigastric region, as reported above. COOK RAILROAD: Negative for abnormal vaginal bleeding, abnormal vaginal discharge. HEMATOLOGY/LYMPHOLOGY Negative for prolonged bleeding, bruising easily or swollen nodes ENDOCRINE: Negative for diabetes or thyroid disease. NEURO: No history of headaches, syncope, paralysis, seizures or tremors All other reviewed and negative other than HPI. PAST MEDICAL HISTORY Diagnosis Date - Anxiety - GERD (gastroesophageal reflux disease) - Hypercholesteremia - MR (mitral regurgitation) - MVP (mitral valve prolapse) - Tobacco abuse PAST SURGICAL HISTORY Procedure Laterality Date - APPENDECTOMY 1964 - COLONOS W/REM POLYP SNARE 04/27/15 small polyp -5 year follow up - EGD W/O BRSH SPECIMEN W/BX 04/27/15 gastritis - REMOVAL GALLBLADDER 1989 Cholecystectomy FAMILY HISTORY Problem Relation Age of Onset - Hypertension Father 89 - Stroke Father - chf [OTHER] Father - Hypertension Mother Liver disease 72 - Cervical Cancer Mother - Stroke Paternal Grandmother - Heart Paternal Grandfather Current Outpatient Prescriptions: lansoprazole (PREVACID) 30 mg capsule Take 1 capsule by mouth twice daily. Disp: 90 capsule Rfl: 3 fexofenadine (MICHAEL ALLERGY) 180 mg tablet Take 1 tablet by mouth once daily. Disp: 90 tablet Rfl: 3 polyethylene glycol 3350 (MIRALAX) 17 gram/dose powder Take 17 g by mouth once daily. Disp: 1530 g Rfl: 0 fluticasone (FLONASE) 50 mcg/actuation nasal spray Use 2 Sprays in each nostril once daily. Rinse mouth after use. Disp: 1 Bottle Rfl: 1 atorvastatin (LIPITOR) 20 mg tablet Take 1 tablet by mouth daily at bedtime. For cholesterol. Disp: 90 tablet Rfl: 3 FLUoxetine (PROZAC) 20 mg capsule Take 1 capsule by mouth once daily. Disp: 90 capsule Rfl: 3 aspirin, enteric coated (ASPIRIN, ENTERIC COATED) 81 mg EC tablet Take 81 mg by mouth once daily. Disp: Rfl: No current facility-administered medications for this visit. SOCIAL HISTORY: Patient is . She smokes 1/2 ppd and reports her alcohol use as never. PHYSICAL EXAMINATION: Blood pressure 152/89, pulse 62, height 162.6 cm (5' 4), weight 50.8 kg (112 lb). General Appearance: Well appearing, alert, in no acute distress, well-hydrated, well nourished. Skin: Skin color, texture, turgor normal, no suspicious rashes or lesions. Head: Normocephalic, no masses, lesions, tenderness or abnormalities. Eyes: Anicteric sclera. Pupils are equally round and reactive to light. Extraocular movements are intact. Oropharynx: Lips, mucosa, and tongue normal, oropharynx normal. Teeth in fair repair. Neck: Supple, no adenopathy; thyroid symmetric, normal size. Lungs: Lungs clear to auscultation. No wheezing, rhonchi, rales. Heart: RRR without murmur. Abdomen: Abdomen soft, non-tender. Bowel sounds normal. No masses, organomegaly. Extremities: No deformities, edema, skin discoloration, clubbing or cyanosis. Peripheral Pulses: Normal. Neurologic: Gait normal. Reflexes normal and symmetric. Sensation grossly intact. Lymph Nodes: No cervical lymphadenopathy, No supraclavicular lymphadenopathy and No axillary lymphadenopathy.. Impression: GERD 2)recent treatment for Hpylori 3)probable lactose intolerance. Plan: Continue current medications. Lactose tolerance test. Consider EGD if symptoms persist. She agrees with this plan. I have personally interviewed and examined this patient. I have reviewed the information that the MA entered for this encounter. Greater than 30 minutes total time used this visit to review old chart, review new information, update current history and evaluate patient. A majority of the time was spent in discussion and counseling to formulate the plan. Sanchez Solomon RN CURB SETTER.SOFÍA Solomon RN APRN.SOFÍA 09/17/2017 9:01 AM Signed Continue current medications. Please follow the instructions for the test that looks at your ability to break down the sugar in dairy. It will take a day or two after the test for us to get the results. Call [phone], and ask to speak to a nurse in GI, if you have any questions or concerns in the mean time. Further plan is based on the results. Consider lactose free items or Lactaid tablets. Referring Provider: CORY WILLINGHAM [[id number]] Allergies As of Date: 09/17/2017 (No Known Allergies) Date Reviewed: 09/17/2017 Reviewed by: Maria Teresa Wray MA - Fully Assessed Reason for Visit: Change In Bowel Habits [785] Primary Visit Diagnosis:Gas pain [R14.1] Other Visit Diagnosis:Abdominal bloating [R14.0] Order(s):LACTOSE TOLERANCE [SQLACTT] Order #: [id number] FUTURE Prescriptions as of 09/17/2017 Sig: LANSOPRAZOLE 30 MG CAPSULE,DE* Take 1 capsule by mouth twice* FEXOFENADINE 180 MG TABLET Take 1 tablet by mouth once d* POLYETHYLENE GLYCOL 3350 17 G* Take 17 g by mouth once daily. FLUTICASONE 50 MCG/ACTUATION * Use 2 Sprays in each nostril * ATORVASTATIN 20 MG TABLET Take 1 tablet by mouth daily * FLUOXETINE 20 MG CAPSULE Take 1 capsule by mouth once * ASPIRIN 81 MG TABLET,DELAYED * Take 81 mg by mouth once chris* Problem List As Of Date 09/17/2017 Noted Resolved Pure hypercholesterolemia [E78.00] INVALID FOR* RUQ pain [R10.11] INVALID FOR* Anxiety disorder [F41.9] INVALID FOR* Well adult exam [Z00.00] INVALID FOR* Undiagnosed cardiac murmurs [R01.1] INVALID FOR* Other instructions from your clinician: Continue current medications. Please follow the instructions for the test that looks at your ability to break down the sugar in dairy. It will take a day or two after the test for us to get the results. Call [phone], and ask to speak to a nurse in GI, if you have any questions or concerns in the mean time. Further plan is based on the results. Consider lactose free items or Lactaid tablets. Follow-up and Disposition History Recorded Encounter Status:Closed by SANCHEZ SOLOMON CNP on 09/17/17 DISCHARGE INSTRUCTION Observed: 09/15/2017 Status: F Source: [place] 11:37 PM [facility] Medical Records Department [address] [place] [id number] Discharge Instruction 09/15/172336 MR#: [id number] Acct: [id number] Name: KEVAN YOON Rep #: [id number] : 1955 62 From: Vanessa Martinez MD PCP: Cory Barboza DO Status: REG ER ED Disposition - Plan for ED Patient: Chief Complaint: Headache Instructions: ED Cephalgia Unspecified Referrals: Cory Willingham DO [Primary Care Provider] - What to do if you have Problems For any increased pain, shortness of breath, bleeding, nausea or vomiting, chest pain, or any unexpected problems, contact your Primary Care Provider. Call [facility] ([phone]) or report to the closest Emergency Room. Call 911 if necessary. 09/15/172336 <Electronically signed by Vanessa Martinez MD> Date Vanessa Martinez MD Cosigner Signature (If Indicated): Date CC: Cory Barboza DO EMERGENCY DEPARTMENT Observed: 09/15/2017 Status: F Source: [place] SUMMARY 11:36 PM [facility] Medical Records Department [address] [place] [address] Emergency Department Summary 09/15/17 2229 MR#: [id number] Acct: [id number] Name: KEVAN YOON Rep #: [id number] : 1955 62 From: Vanessa Martinez MD PCP: Cory Barboza DO Status: REG ER - ER Visit Summary Date of Service: 09/15/17 Chief Complaint: Headache History of Present Illness: The patient is a 62 F presenting with intermittent headache. This has been ongoing for the past week. She states her blood pressure has been fluctuating. She states the highest she recorded was 189/90. She has been checking this at home. She does not have a history of hypertension. She states when her blood pressure is high, she has a headache. She does not currently have a headache. She has been under a lot of stress at work. She denies chest pain or shortness of breath. Denies other complaints. Physical Examination: Vitals are stable. Blood pressure 151/89. Patient is afebrile. Alert no acute distress. HEENT exam is unremarkable. Neck is supple. Lungs are clear and equal bilaterally. Heart is regular rate and rhythm. Abdomen is soft nontender nondistended. Extremities are unremarkable. Skin is warm and dry. No focal neurologic deficit. Remainder of exam is unremarkable. Emergency Department Course and Treatment: CT head shows no acute process. Basic metabolic panel is normal. Patient remains asymptomatic in the emergency department. She is advised to track her blood pressures at home. She is advised to follow up with Dr. Willingham her primary care physician. Advised return to ED for any worsening complaints. Disposition: Discharge home Impression: Headache, resolved; hypertension This note was generated with CakeStyleation software. It may contain incorrect words, spelling, and punctuation that were not noted in review of the chart prior to signing ED Disposition - Plan for ED Patient: Chief Complaint: Headache Referrals: Cory Willingham, [Primary Care Provider] - What to do if you have Problems For any increased pain, shortness of breath, bleeding, nausea or vomiting, chest pain, or any unexpected problems, contact your Primary Care Provider. Call [facility] ([phone]) or report to the closest Emergency Room. Call 911 if necessary. 09/15/17 2336 <Electronically signed by Vanessa Martinez MD> Date Vanessa Martinez MD Cosigner Signature (If Indicated): Date CC: Cory Barboza DO BASIC METABOLIC Collected: 09/15/2017 Status: F Source: [place] PROFILE (BMP) 10:50 PM [facility] TYPE CODE TESTS RESULT OUT OF RANGE REFERENCE UNITS LAB L501.0100 74-106 mg/dL Normal GLU 99 Result Comment: Please note revised GLUCOSE reference range effective 2017. LAB L501.1000 7-18 mg/dL Normal BUN 16 LAB L501.1100 0.55-1.02 mg/dL Normal CREAT,SERUM 0.85 Result Comment: The validity of the calculated GFR AND GFRAA in patients over 70 years has not been determined. Clinical correlation is essential. LAB L501.1110 >60 mL/min Normal EST GFR 72 Result Comment: Non- GFR Calc LAB L501.1115 >60 mL/min Normal EST GFR - AA 87 Result Comment: GFR Calc LAB L501.1255 ml/min Normal Estimated CRCL 55.18 LAB L501.1300 10-20 RATIO Normal BUN/CRE 18.9 LAB L501.2200 8.5-10 mg/dL Normal .1 CA 8.7 LAB L501.5300 136-14 mmol/L Normal 5 NA 141 LAB L501.5600 3.5-5. mmol/L Normal 1 K 3.8 LAB L501.5900 98-107 mmol/L Normal CL 107 LAB L501.6100 21.0-3 mmol/L Normal 2.0 CO2 27.0 LAB L501.6200 5-15 Normal GAP 7 Performed By: #### L500.2500 #### [facility] [address] [place], [address] BRAIN/HEAD WITHOUT Observed: 09/15/2017 Status: F Source: [place] CONTRAST 10:24 PM [facility] Imaging Services [address] [place] [address] Brain/Head without Contrast MR#: [id number] Acct: [id number] Name: KEVAN YOON Rep #: [id number] : 1955 F 62 From: Leena Ambrosio MD PCP: Cory Barboza DO Status: REG ER Study: Brain/Head without Contrast Date of Exam: 09/15/17 Exam# [id number] Ordering Dr: Vanessa Martinez MD STUDY: CT BRAIN WITHOUT CONTRAST REASON FOR EXAM: Female, 62 years old. Headache. RADIATION DOSAGE (If Supplied By Facility): CTDIvol = ( 44.99 ) mGy, DLP = ( 745.49 ) mGycm TECHNIQUE: Transaxial CT imaging of the brain was performed without administration of intravenous contrast material. Individualized dose optimization techniques were used for this CT. COMPARISON: None. FINDINGS: Normal soft tissue structures. Normal calvarium. Normal size ventricles and extra-axial spaces for the patient's age. Normal white matter tracts of the cerebral hemispheres. Normal basal ganglia and thalami. Normal brainstem. Normal cerebellum. There is no intracranial hemorrhage. There are no findings of an acute ischemic infarction. There is trace opacification of the left mastoid air cells. CT/Brain/Head without Contrast IMPRESSION: No acute intracranial process. Trace opacification of the left mastoid air cells suggestive of a history of mastoiditis. Electronically Signed: Leena Ambrosio MD at 23:22 EDT Tel , Service support , CC: Vanessa Martinez MD; Cory Barboza DO Nurse Clinician: Signed PROGRESS Observed: 08/18/2017 Status: COMPLETED Source: [place] 10:03 AM [facility] REPOSITORY HNO ID: [id number] Author: Amanda Valderrama ([facility]) [facility] Service: (none) Author Type: Nurse Practitioner Type: Progress Notes Filed: 08/18/2017 1:52 PM Note Text: HPI/CC: Kevan Yoon is a 62 year old female who presents for Recheck. Reports improved GERD symptoms with H. Pylori treatment and daily prevacid. Continues to experience lower abdominal bloating, + flatus, constipation and feeling of incomplete bowel evacuation, one hard BM daily. No change in appetite. Denies fever, chills, N/V, diarrhea, UTI symptoms. Also concerned regarding Sinus issues x 2 weeks. Reports sinus pressure, sneezing, coughing, nasal drainage. Lewis fever, chills, sore throat, ear pain. Attempted OTC sudafed and her daily Flonase without relief. ROS as above, otherwise non-contributory. Reviewed PMHx, PSHx, social Hx, medications and allergies. PHYSICAL EXAMINATION: BP 134/82 Pulse 72 Temp 36.6 ?C (97.8 ?F) (Temporal Artery) Resp 16 Wt 51.7 kg (114 lb) BMI 19.57 kg/m2 General appearance: Well appearing, alert, in no acute distress, well-hydrated, well nourished., Thin Skin: Skin color, texture, turgor normal, no suspicious rashes or lesions Head: Normocephalic, no masses, lesions, tenderness or abnormalities Eyes: Anicteric sclera. Lungs: Lungs clear to auscultation. No wheezing, rhonchi, rales Heart: RRR without murmur, gallop, or rubs. No ectopy Abdomen: Negative findings: no masses palpable and no organomegaly, Positive findings: tenderness moderate epigastric and RUQ and suprapubic ASSESSMENT/PLAN: 1. Change in bowel function - ICD9: 787.99, ICD10: R19.4 (primary diagnosis) 2. Irritable bowel syndrome with constipation - ICD9: 564.1, ICD10: K58.1 - CONSULT TO GASTROENTEROLOGY - POLYETHYLENE GLYCOL 3350 17 GRAM/DOSE ORAL POWDER 3. Gastroesophageal reflux disease, esophagitis presence not specified - ICD9: 530.81, ICD10: K21.9 - improved, monitor and continue current treatment - LANSOPRAZOLE 30 MG CAPSULE,DELAYED RELEASE 4. Environmental allergies - ICD9: V15.09, ICD10: Z91.09 - FEXOFENADINE 180 MG TABLET 5. Need for vaccination - ICD9: V05.9, ICD10: Z23 - TDAP VACCINE AGE 7+ IM - f/u in 6 months or before as needed YVES Bergman Observed: 08/18/2017 Status: COMPLETED Source: [place] 9:40 AM [facility] REPOSITORY Office Visit (FAMPWS) KEVAN YOON ([id number]) 1955 F Date Time Provider Department 08/18/17 9:40 AM AMANDA PENALOZA (SOFÍA) [facility] During your visit today, we recorded the following information about you: Temperature Pulse Respiration Blood pressure 97.8 degrees 72/minute 16/minute 134/82 Weight 51.7 kg Amanda Peanloza APRN.CNP 08/18/2017 1:52 PM Signed HPI/CC: Kevan Lalanell is a 62 year old female who presents for Recheck. Reports improved GERD symptoms with H. Pylori treatment and daily prevacid. Continues to experience lower abdominal bloating, + flatus, constipation and feeling of incomplete bowel evacuation, one hard BM daily. No change in appetite. Denies fever, chills, N/V, diarrhea, UTI symptoms. Also concerned regarding Sinus issues x 2 weeks. Reports sinus pressure, sneezing, coughing, nasal drainage. Lewis fever, chills, sore throat, ear pain. Attempted OTC sudafed and her daily Flonase without relief. ROS as above, otherwise non-contributory. Reviewed PMHx, PSHx, social Hx, medications and allergies. PHYSICAL EXAMINATION: BP 134/82 Pulse 72 Temp 36.6 ?C (97.8 ?F) (Temporal Artery) Resp 16 Wt 51.7 kg (114 lb) BMI 19.57 kg/m2 General appearance: Well appearing, alert, in no acute distress, well-hydrated, well nourished., Thin Skin: Skin color, texture, turgor normal, no suspicious rashes or lesions Head: Normocephalic, no masses, lesions, tenderness or abnormalities Eyes: Anicteric sclera. Lungs: Lungs clear to auscultation. No wheezing, rhonchi, rales Heart: RRR without murmur, gallop, or rubs. No ectopy Abdomen: Negative findings: no masses palpable and no organomegaly, Positive findings: tenderness moderate epigastric and RUQ and suprapubic ASSESSMENT/PLAN: 1. Change in bowel function - ICD9: 787.99, ICD10: R19.4 (primary diagnosis) 2. Irritable bowel syndrome with constipation - ICD9: 564.1, ICD10: K58.1 - CONSULT TO GASTROENTEROLOGY - POLYETHYLENE GLYCOL 3350 17 GRAM/DOSE ORAL POWDER 3. Gastroesophageal reflux disease, esophagitis presence not specified - ICD9: 530.81, ICD10: K21.9 - improved, monitor and continue current treatment - LANSOPRAZOLE 30 MG CAPSULE,DELAYED RELEASE 4. Environmental allergies - ICD9: V15.09, ICD10: Z91.09 - FEXOFENADINE 180 MG TABLET 5. Need for vaccination - ICD9: V05.9, ICD10: Z23 - TDAP VACCINE AGE 7+ IM - f/u in 6 months or before as needed Amanda Penaloza APRN.KEYLINER Referring Provider: SELF [[id number]] Allergies As of Date: 08/18/2017 (No Known Allergies) Date Reviewed: 08/18/2017 Reviewed by: Sarahy Schroeder LPN - Fully Assessed Reason for Visit: Recheck [92] Cmt: Follow up Primary Visit Diagnosis:Change in bowel function [R19.4] Other Visit Diagnoses:Irritable bowel syndrome with constipation [K58.1] Gastroesophageal reflux disease, esophagitis presence not specified [K21.9] Environmental allergies [Z91.09] Need for vaccination [Z23] Order(s):CONSULT TO GASTROENTEROLOGY [9010] Order #: [id number]: 1 lansoprazole (PREVACID) 30 mg capsuleTake 1 capsule by mouth twice daily.Disp: 90 capsuleRfl: 3 fexofenadine (MICHAEL ALLERGY) 180 mg tabletTake 1 tablet by mouth once daily.Disp: 90 tabletRfl: 3 polyethylene glycol 3350 (MIRALAX) 17 gram/dose powderTake 17 g by mouth once daily.Disp: 1530 gRfl: 0 TDAP VACCINE AGE 7+ IM [70210OTR] Order #: [id number] Prescriptions as of 08/18/2017 Sig: LANSOPRAZOLE 30 MG CAPSULE,DE* Take 1 capsule by mouth twice* FLUTICASONE 50 MCG/ACTUATION * Use 2 Sprays in each nostril * ATORVASTATIN 20 MG TABLET Take 1 tablet by mouth daily * FLUOXETINE 20 MG CAPSULE Take 1 capsule by mouth once * ASPIRIN 81 MG TABLET,DELAYED * Take 81 mg by mouth once chris* FEXOFENADINE 180 MG TABLET Take 1 tablet by mouth once d* POLYETHYLENE GLYCOL 3350 17 G* Take 17 g by mouth once daily. Problem List As Of Date 08/18/2017 Noted Resolved Pure hypercholesterolemia [E78.00] INVALID FOR* RUQ pain [R10.11] INVALID FOR* Anxiety disorder [F41.9] INVALID FOR* Well adult exam [Z00.00] INVALID FOR* Undiagnosed cardiac murmurs [R01.1] INVALID FOR* Prescriptions ordered this encounter Disp Refills Start End LANSOPRAZOLE 30 MG CAPSULE,DELAYED R* 90 c* 3 08/18/2017 Route: ORAL Sig: Take 1 capsule by mouth twice daily. FEXOFENADINE 180 MG TABLET 90 t* 3 08/18/2017 Route: ORAL Sig: Take 1 tablet by mouth once daily. POLYETHYLENE GLYCOL 3350 17 GRAM/DOS* 1530* 0 08/18/2017 11/16/2017 Route: ORAL Sig: Take 17 g by mouth once daily. Medications Discontinued During This Encounter lansoprazole (PREVACID) 30 mg capsule 30 c* 0 06/22/2017 08/18/2017 Route: ORAL Sig: Take 1 capsule by mouth twice daily. Disc: Reason for discontinue is not on file. Encounter Status:Closed by AMANDA PENALOZA CNP on 08/18/17 FILI Observed: 08/04/2017 Status: COMPLETED Source: [place] 12:00 AM [facility] RE[facility] Patient Outreach (FAMPST) KEVAN YOON ([id number]) 1955 F Date Time Provider Department 08/04/17 [facility] During your visit today, we recorded the following information about you: Allergies As of Date: 08/04/2017 (No Known Allergies) Date Reviewed: 06/19/2017 Reviewed by: Amanda Valderrama (Sofía) SOFÍA Penaloza - Fully Assessed Visit Diagnosis:Medication management [Z79.899] Order(s):LIPID PANEL BASIC [SQLIPB] Order #: [id number] FUTURE Prescriptions as of 08/04/2017 Sig: X LANSOPRAZOLE 30 MG CAPSULE,DE* Take 1 capsule by mouth twice* FLUTICASONE 50 MCG/ACTUATION * Use 2 Sprays in each nostril * X ATORVASTATIN 20 MG TABLET Take 1 tablet by mouth daily * X FLUOXETINE 20 MG CAPSULE Take 1 capsule by mouth once * ASPIRIN 81 MG TABLET,DELAYED * Take 81 mg by mouth once chris* Problem List As Of Date 08/04/2017 Noted Resolved Pure hypercholesterolemia [E78.00] INVALID FOR* RUQ pain [R10.11] INVALID FOR* Anxiety disorder [F41.9] INVALID FOR* Well adult exam [Z00.00] INVALID FOR* Undiagnosed cardiac murmurs [R01.1] INVALID FOR* Encounter Status:Closed by RA QUIGLEY on 02/26/18 Observed: 07/07/2017 Status: F Source: [place] HPYLORI AG EIA STOOL 6:00 AM [facility] REPOSITORY Test Result - Negative for Helicobacter pylori Antigen by EIA. Performed By: #### HPYLAG #### [facility] [address], [place] [address] HELICO PYLORI AB Collected: 06/19/2017 Status: F Source: [place] 10:26 AM [facility] REPOSITORY TYPE CODE TESTS RESULT OUT OF RANGE REFERENCE UNITS LAB HPYLRL Negative Abnormal H. pylori Positive Alert IgG, Qual Result Comment: H. pylori IgG antibodies were detected in the sample. LAB HPYLR U/mL H pylori Ab, IgG 6.3 Result Comment: U/mL are interpreted as follows: Negative specimens <0.9 Indeterminate specimens >=0.9 to <1.1 Positive specimens >=1.1 Results were obtained with the IMMULITE 2000 H.pylori IgG EIA. Results obtained from other manufacturers' assay methods may not be used interchangeably. Performed By: #### HPYLRI #### [facility] [address], [place] [address] PROGRESS Observed: 06/19/2017 Status: COMPLETED Source: [place] 10:24 AM [facility] REPOSITORY HNO ID: [id number] Author: Harvinder Narayan LPN Service: (none) Author Type: (none) Type: Progress Notes Filed: 06/19/2017 10:35 AM Note Text: 61 year old female here for INACTIVATED INFLUENZA VACCINE. [id number] Season Patient is identified by name and date of : Yes [] CONTRAINDICATIONS color enhanced section Age less than 6 months? No Allergy to eggs, chicken, chicken feathers, or chicken dander? No Allergy to thimerosal (a preservative) or formaldehyde? No History of severe reaction to any vaccine component or a previous dose of influenza vaccination? No History of Guillain-Guernsey Syndrome within 6 weeks after a previous influenza vaccine? No Current moderate or severe illness? No Current temperature greater or equal to 100.4F? No History of Bone Marrow Transplant in past 6 months or solid organ transplant in the past 3 months ? No [] VERIFICATION color enhanced section Was the answer Yes for any of the above contraindications? No contraindications present. Acceptable to proceed with vaccine. Patient/guardian agrees the above answers are true to the best of their knowledge? Yes Flu vaccine information sheet given? Yes See immunization activity in [facility] for details of immunizations adminstered today. Patient age: [age] year old For The 1112-2701 Flu Season 6-35 months old: Fluzone 0.25 ml - IM (Preservative Free) 3 years of age: Fluzone 0.5 ml - IM (Preservative Free) 3 years and older: Fluzone 0.5 ml- IM-(with Preservatives) 65+ years old: Fluzone High-Dose 0.5 ml - IM (Preservative Free) REMEMBER: If patient is less than 9 years of age and this is the first vaccine of Influenza to be received in any flu season, they should receive a second dose in one months time. PROGRESS Observed: 06/19/2017 Status: COMPLETED Source: [place] 9:48 AM [facility] [place] REPOSIT[facility] ID: [id number] Author: Amanda Valderrama (Sofía) SOFÍA Penaloza Service: (none) Author Type: Nurse Practitioner Type: Progress Notes Filed: 06/19/2017 10:35 AM Note Text: Kevan Yoon presents with the following symptoms: burning in epigastrium, nausea, increased belching and flatus x 2 months. The abdominal discomfort is described as burning. The discomfort is located in the epigastrum. Symptoms are precipitated by bending over and laying flat, and alleviated by Mylanta for a short period of time Risk factors include age, tobacco use and caffeine intake. Previous treatments include: prevacid with improvement Previous work-ups have included: EGD and colonoscopy Denies early satiety, vomiting, fever, chills, change in BMs, change in urination, painful or difficulty swallowing. Patient seen in ER x 2 for the same, work up including CBC, CMP, CXR and ECG normal ROS as above, otherwise non-contributory. Reviewed PMHx, PSHx, social Hx, medications and allergies. PHYSICAL EXAMINATION: BP 138/82 Pulse 68 Resp 16 Wt 49.4 kg (109 lb) BMI 18.71 kg/m2 General appearance: Well appearing, alert, in no acute distress, well-hydrated, well nourished. Skin: Skin color, texture, turgor normal, no suspicious rashes or lesions Lungs: Lungs clear to auscultation. No wheezing, rhonchi, rales Heart: RRR without murmur, gallop, or rubs. No ectopy Abdomen: Negative findings: no masses palpable and no organomegaly, Positive findings: tenderness moderate epigastric and RUQ. ASSESSMENT/PLAN: 1. Gastroesophageal reflux disease, esophagitis presence not specified - ICD9: 530.81, ICD10: K21.9 (primary diagnosis) - Discussed lifestyle modifications including limiting caffeine, smoking cessation - Begin treatment with Prevacid 30 mg QD - Follow up in 2 months or before if worse- consider EGD - H PYLORI IGG AB - LANSOPRAZOLE 30 MG CAPSULE,DELAYED RELEASE 2. Need for vaccination - ICD9: V05.9, ICD10: Z23 - INFLUENZA VACCINE QUADRIVALENT AGE 3 YRS PLUS + IM Amanda Penaloza CNP ALLERGIES ALLERGIES DATE TYPE / CODE NAME / CODE REACTION SEVERITY SOURCE 06/05/2018 Drug No Known Unknown [facility] Allergy/416 Allergies/T03620 Hospital 003201(SNOM 0388(RXNORM) Repository ED CT) Drug NO KNOWN [facility] Class/86173 ALLERGIES [place] 1003(SNOMED Repository CT) ENCOUNTERS ENCOUNTERS ADMIT/DISCHARGE ACCOUNT ADMITTING ENCOUNTER LOCATION SOURCE NUMBER CLASS 06/05/2018/06/05/19 [id number] Emergency [address] ing:ED Repository 04/13/2018/04/13/20 [id number] Ambulatory [address] Repository 04/13/2018/04/13/20 [id number] Ambulatory [address] Repository 03/22/2018/03/23/20 [id number] Emergency [address] ing:ED Repository 03/22/2018/03/22/20 [id number] Ambulatory [address] Repository 02/17/2018/02/19/20 [id number] Ambulatory [address] Repository 01/28/2018/09/14 [id number] Ambulatory [address] Main [place] Repository 09/21/2017/09/23/19 [id number] Ambulatory [address] Repository 09/18/2017/09/19/19 [id number] Ambulatory [address] Repository 09/18/2017/09/19/19 [id number] Ambulatory [address] Repository 09/17/2017/09/18/19 [id number] Ambulatory [address] Repository 09/15/2017/09/16/19 [id number] Emergency [place] Nereyda [address] [place] [address] ing:ED Repository 08/18/2017/08/20/19 [id number] Ambulatory [address] Repository 06/19/2017/06/19/19 [id number] Ambulatory [address] Repository 06/19/2017/06/19/19 [id number] Ambulatory [address] Repository PAYERS PAYERS ENCOUNTER GUARANTOR PAYER SUBSCRIBER SOURCE 06/05/2018 DELPHINE Valderrama Primary DELPHINE [id number] Insurance:MEDICAL PENNELLDOB: [facility] [id number] Number: Repository [id number]: 330 [id number] [phone] (HP) Date:[id number] [address]RR: 06/05/2018 Secondary NOT GIVENUNK [place] Insurance:SELF PAY [facility] Number: Effective Repository Date:2018-06-05 03/22/2018 DELPHINE L Primary DELPHINE L Nereyda [id number] Insurance:MEDICAL PENNELLDOB: [facility] [id number] Number: Repository [id number]: 330 [id number] [phone] (HP) Date:[id number] [address]JZ: 03/22/2018 Secondary NOT GIVENUNK [place] Insurance:SELF PAY [facility] Number: Effective Repository Date:2018-03-22 09/15/2017 DELPHINE Valderrama Primary DELPHINE Dawn [id number] Insurance:MEDICAL PENNELLDOB: [facility] [id number] Number: Repository [id number]: (203) [id number] [phone] () Date:[id number], [place] [address]BW: 09/15/2017 Secondary NOT GIVENPERLA Dawn Insurance:SELF PAY [facility] Number: Effective Repository Date:2017-09-15
== END 2018-06-05 22:59 | disposition home or self-care (01) ==
PROVIDERS: Emergency Provider Emergency Medicine; Family Provider Student in an Organized Health Care Education/Training Program; PCP Student in an Organized Health Care Education/Training Program
DX: K21.9 Gastro-esophageal reflux disease without esophagitis (principal); E78.00 Pure hypercholesterolemia, unspecified; Z72.0 Tobacco use; Z79.82 Long term (current) use of aspirin; Z79.899 Other long term (current) drug therapy
CPT/HCPCS: 71045; 80048; 84484; 85025; 93005; 99285; A4216

== ENCOUNTER → 2018-08-04 10:15 | Outpatient (CLI) | payer OTHER, SELFPAY ==
--- NOTE | 2018-08-04 11:30 | BRBX_PTH ---
PATIENT: KEVAN PELAEZ LOC: [facility] U#:[id number] AGE/SX: 69/F ROOM: RE08/04/[address]: Dr. Sagar Cheung MD : [id number] BED: DIS: SPEC #: [id number] RECD: 08/04/18 12:07 STATUS: JORGE LUIS REJr #: [id number] YOVANA: 08/04/18 11:[address]: Sagar Cheung DEPT: SURGICAL PATHOLOGY RECD BY: Jere Grant ENTERED: 08/04/18 13:40 SP TYPE: BREAST BX OTHR DR: Dr. Cory Galvez DO Tissues: Left breast, NOS Procedures: Surgery Specimen Level IV HEADER OPERATION: Left breast stereotactic biopsy PRE-OP DIAGNOSIS: Calcifications left breast lateral superior TISSUE SUBMITTED: Left breast core tissue ISCHEMIC TIME: 1 minute FIXATION TIME: 8 hours MICROSCOPIC DIAGNOSIS Left breast, stereotactic core biopsy: Involutional change. Banal microcalcifications. No evidence of malignancy. AM:zeb 08/05/18 MICROSCOPIC DESCRIPTION Slides are reviewed. GROSS DESCRIPTION Received is one container labeled with the patient's name and not further designated. The specimen consists of multiple irregular fragments of yellow-white soft tissue that in aggregate measure 5 x 3 x 0.2 cm. The specimen is totally submitted in two cassettes. / AM:ezb 08/04/18 TC:5 CPT: 18937
--- NOTE | 2018-08-04 17:51 | PCM.OPRPT ---
Report of Operation Date of Procedure: 08/04/18 Pre-Operative Diagnosis: left breast microcalcifications Post-Operative Diagnosis: successful stereotactic biopsy of left breast microcalcifications Surgery/Procedure Performed:: left vacuum-assisted core needle biopsy/stereotactic biopsy with specimen radiograph and gel marker placement conservation educator: None Type of Anesthesia:: Local Specimen's removed: left breast tissue Description of Procedure: The patient was brought to the stereotactic suite and informed of the plan course of events. The left breast was positioned in the true CC approach on the Dean stereotactic table. Mammographic image demonstrated the area of abnormality to be located in the center of the radiograph. Stereotactic images were then obtained which demonstrated good positioning of the abnormality for biopsy with good stroke myra parameters. The breast was cleaned with Betadine area did one percent lidocaine was used to anesthetize the skin and a small stab incision made. An 8-gauge mammotome needle was placed into the pre-fire position. Stereotactic images demonstrated good positioning around the planned biopsy site. Local anesthetic injected deeply in the breast. The needle was deployed. Post deployment images demonstrated good positioning of the planned biopsy site. Multiple vacuum-assisted samples were obtained and [id number] fashion. Specimen radiograph demonstrated micro-calcifications in the sample. A gel marker clip was deployed. Post biopsy images demonstrated good position of the clip relative the biopsy cavity. The breast was removed from compression. Steri-Strips and a dressing applied. Post procedure mammogram images were obtained.
== END ==
LOC: BIRAD 10:16
PROVIDERS: Family Provider Student in an Organized Health Care Education/Training Program; PCP Student in an Organized Health Care Education/Training Program; Visit Provider Surgery
DX: R92.0 Mammographic microcalcification found on diagnostic imaging of breast (principal)
CPT/HCPCS: 19081; 88305; J7050

== ENCOUNTER 2019-07-08 17:30 | Emergency (ER) | payer OTHER, MEDICARE, SELFPAY ==
[2019-07-08 17:31] VITALS: BP 183/84; PULSE 70; RESP 16; TEMP 36.2; O2SAT 98; BMI 19.5
--- NOTE | 2019-07-08 17:37 | EKG12_ITS ---
Test Reason : CP Blood Pressure : / mmHG Vent. Rate : 062 BPM Atrial Rate : 062 BPM P-R Int : 136 ms QRS Dur : 074 ms QT Int : 404 ms P-R-T Axes : 081 083 073 degrees QTc Int : 410 ms Normal sinus rhythm Normal ECG Confirmed by ROCKY GALINDO, DEVANG ([id number]), visual effects editor WINNIE CORDOVA ([id number]) on 07/11/2019 2:10:10 PM Referred By: GAVIOTA Confirmed By:SG HIDALGO MD
--- NOTE | 2019-07-08 17:40 | RAD_ITS ---
STUDY: X-RAY CHEST REASON FOR EXAM: Female, 64 years old. Chest pain TECHNIQUE: Frontal view of the chest COMPARISON: 06/05/2018 FINDINGS: The lungs are clear. There are no pleural effusions. There is no pneumothorax. The heart is normal in size. The visualized osseous structures are within normal limits. RAD/Chest 1 View (Portable) IMPRESSION: No acute thoracic pathology. Electronically Signed: Rambo Gutierrez, at 18:26 EST Tel , Service support ,
--- NOTE | 2019-07-08 17:44 | ED.VISSUMM ---
- ER Visit Summary Date of Service: 07/08/19 Chief Complaint: Chest chest pain. I think it is my reflux History of Present Illness: The patient is a 64 F no history of cardiac disease. History of reflux, murmur high cholesterol. Not diabetic. No history of DVT or PE no risk factors. No hemoptysis nor leg pain or swelling nor pleuritic pain. Currently she is symptom-free. States that this is worse when she eats. Its not affected by exertion. There is no shortness of breath. She had some burning sensation in her epigastric lower chest region. This is been coming and going for about a month. She has been out of her Protonix. Physical Examination: Older female no acute distress. Vital signs stable blood pressure elevated 183/84. Pulse ox 90% on room air no signs hypoxia. H EENT exam unremarkable. Neck nontender no lymphadenopathy. Lungs clear to auscultation bilaterally. Heart regular rhythm no murmur. S1 nontender. Abdomen soft nontender bowel sounds no peritoneal signs. Moving all 4 extremities. Equal symmetrical radial pulses. 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 Dorsi plantarflexion intact. Calves are nontender without edema or cords. Neurologically she is awake alert. Test Results: EKG shows a normal sinus rhythm rate of 62 with no acute signs of [place] or ischemia. This x-ray portable 1 view read by myself shows no acute abnormality. Chronic changes. Normal cardiac silhouette mediastinum. CBC normal. Chemistries unremarkable normal creatinine and gap. Troponin normal. Emergency Department Course and Treatment: Patient will undergo cardiac work-up. Clinically I think this is reflux. She has no risk factors for PE or DVT or any physical findings. The work-up is negative she will be discharged home. She will be given p.o. Protonix and a prescription for. Repeat exam patient is doing well at 1825. Will be discharged home. Treatment Plan: Protonix daily. Follow-up with her primary care physician. Return if worse. Disposition: discharge Impression: Epigastric and chest pain secondary to reflux This note was generated with A.C. Mooreation software. It may contain incorrect words, spelling, and punctuation that were not noted in review of the chart prior to signing ED Disposition - Plan for ED Patient: Disposition: Home or Assisted Living Instructions: GERD (Adult) Prescriptions: Pantoprazole Sodium [Protonix] 40 mg PO DAILY #30 tab Prescription Printed Referrals: Cory Galvez DO [Primary Care Provider] - 1 Week if not improving Additional Instructions: Follow-up with his doctor if not improving. Protonix daily as needed. Return to the ER feeling a lot worse.
--- NOTE | 2019-07-08 17:49 | ED.DEP ---
ED Disposition - Plan for ED Patient: Disposition: Home or Assisted Living Instructions: GERD (Adult) Prescriptions: Pantoprazole Sodium [Protonix] 40 mg PO DAILY #30 tab Prescription Printed Referrals: Cory Galvez DO [Primary Care Provider] - 1 Week if not improving Additional Instructions: Follow-up with his doctor if not improving. Protonix daily as needed. Return to the ER feeling a lot worse.
[2019-07-08 17:53] VITALS: O2SAT 98
[2019-07-08 18:00] LABS: Absolute Lymphocyte Count 3.44 X10^3/uL (0.83-4.51); Absolute Neutrophil Count 5.2 X10^3/uL (2.0-7.7); Basophil# 0.04 X10^3/uL; Basophil% 0.4 % (0-1); Eosinophil# 0.11 X10^3/uL; Eosinophils% 1.2 % (0-5); Hematocrit 42.1 % (37-47); Lymphocyte # 3.44 X10^3/ul (4.0); Lymphocyte % 36.4 % (19-41); Mean Corp Hgb Conc 33.3 g/dL (32-36); Mean Corpuscular Hgb 29.4 pg (27.0-32.0); Mean Corpuscular Volume 88.4 fL (81-99); Monocyte# 0.61 X10^3/uL; Monocyte% 6.5 % (0-10); NRBC Flagged by Analyzer 0 % (0-5); Neutrophil % 55.1 % (47-70); Platelet Count 242 K/mm3 (150-450); RBC Distribution Width CV 13.7 % (11.6-14.6); RBC Distribution Width SD 44.4 fl (35.1-43.9); Red Blood Count 4.76 M/mm3 (4.2-5.4); White Blood Count 9.4 K/mm3 (4.4-11.0)
[2019-07-08] MEDS: Pantoprazole Sodium 40 MG Tablet PO (18:06)
[2019-07-08 18:20] LABS: Anion Gap 4 (5-15); BUN 12 mg/dL (7-18); Calcium,Total 8.9 mg/dL (8.5-10.1); Chloride 111 mmol/L (98-107); Creatinine, Serum 0.93 mg/dL (0.55-1.02); EST Glomerular Filtration Rate 65 mL/min (>60); Est Glom Filt Rate - Afr Amer 78 mL/min (>60); Estimated Creatinine Clearance 49.23 ml/min; Glucose 93 mg/dL (74-106); Potassium 3.8 mmol/L (3.5-5.1); Sodium Level 142 mmol/L (136-145)
[2019-07-08 18:56] VITALS: BP 155/80; PULSE 58; RESP 17; O2SAT 98
--- NOTE | 2019-07-08 18:56 | ED.RN ---
IV DC'ED, CATHETER INTACT, SMALL GAUZE DRESSING PLACED. DISCHARGE INSTRUCTIONS GIVEN TO AND REVIEWED WITH PATIENT, PATIENT DENIES QUESTIONS OR CONCERNS AND VOICES UNDERSTANDING OF DISCHARGE INSTRUCTIONS. PT AMBULATES OUT OF ROOM WITHOUT DIFFICULTY.
== END 2019-07-08 18:57 | disposition home or self-care (01) ==
PROVIDERS: Emergency Provider Emergency Medicine; PCP Student in an Organized Health Care Education/Training Program
DX: K21.9 Gastro-esophageal reflux disease without esophagitis (principal); E78.00 Pure hypercholesterolemia, unspecified; R03.0 Elevated blood-pressure reading, without diagnosis of hypertension; Z72.0 Tobacco use; Z79.82 Long term (current) use of aspirin; Z79.899 Other long term (current) drug therapy
CPT/HCPCS: 71045; 80048; 84484; 85025; 93005; 99284; A4216

== ENCOUNTER 2019-09-04 04:48 | Emergency (ER) | payer MEDICARE, SELFPAY ==
--- NOTE | 2019-09-04 04:50 | EKG12_ITS ---
Test Reason : REPEAT EKG Blood Pressure : / mmHG Vent. Rate : 053 BPM Atrial Rate : 053 BPM P-R Int : 150 ms QRS Dur : 074 ms QT Int : 428 ms P-R-T Axes : 077 085 079 degrees QTc Int : 401 ms Sinus bradycardia Otherwise normal ECG Confirmed by AHMET GALINDO, RANDAL ([id number]), commissioning editor YAMILA HOLT ([id number]) on 09/06/2019 9:06:14 AM Referred By: DR GOODMAN Confirmed By:RANDAL LEO MD
--- NOTE | 2019-09-04 04:50 | RAD_ITS ---
STUDY: X-RAY CHEST REASON FOR EXAM: Female, 64 years old. PT C/O INTERMITTENT CHEST BURNING X 2 WEEKS TECHNIQUE: Single frontal view of the chest. COMPARISON: July 08, 2019. FINDINGS: Left breast clip. EKG leads artifacts. There is hyperinflation of the lungs consistent with chronic obstructive lung disease (COPD). No focal consolidation. No pneumothorax. No pleural effusion. Normal size heart. Aortic calcifications. There are diffuse degenerative changes of the visualized thoracic spine. There is degenerative osteoarthritis of the bilateral shoulders. There is no demonstrated abnormality of the visualized soft tissue structures of the upper abdomen. RAD/Chest 1 View (Portable) IMPRESSION: Findings suggest COPD. No acute cardiopulmonary disease identified. Electronically Signed: Harvinder Velazquez, at 5:28 EDT Tel , Service support ,
[2019-09-04 04:51] VITALS: BP 181/87; PULSE 66; RESP 16; TEMP 36.6; O2SAT 99
[2019-09-04 05:01] LABS: Absolute Lymphocyte Count 4.44 X10^3/uL (0.83-4.51); Absolute Neutrophil Count 4.3 X10^3/uL (2.0-7.7); Basophil# 0.06 X10^3/uL; Basophil% 0.6 % (0-1); Eosinophil# 0.17 X10^3/uL; Eosinophils% 1.8 % (0-5); Hematocrit 46.3 % (37-47); Hemoglobin 14.9 g/dL (12.0-15.0); Lymphocyte # 4.44 X10^3/ul (4.0); Lymphocyte % 46.3 % (19-41); Mean Corp Hgb Conc 32.2 g/dL (32-36); Mean Corpuscular Hgb 28.8 pg (27.0-32.0); Mean Corpuscular Volume 89.4 fL (81-99); Mean Platelet Vol. 10.4 fl (6.2-12.0); Monocyte# 0.56 X10^3/uL; Monocyte% 5.8 % (0-10); NRBC Flagged by Analyzer 0 % (0-5); Neutrophil # 4.33 X10^3/uL (2.7-7.7); Neutrophil % 45.1 % (47-70); Platelet Count 264 K/mm3 (150-450); RBC Distribution Width CV 13.8 % (11.6-14.6); RBC Distribution Width SD 44.6 fl (35.1-43.9); Red Blood Count 5.18 M/mm3 (4.2-5.4); White Blood Count 9.6 K/mm3 (4.4-11.0)
--- NOTE | 2019-09-04 05:02 | ED.VISSUMM ---
- ER Visit Summary Date of Service: 09/04/19 Chief Complaint: Abdominal pain, increased gas and chest pain History of Present Illness: The patient is a 64 F history of reflux and high cholesterol. Prior cholecystectomy and appendectomy. No cardiac history. Patient states that for last 2 weeks has had increased gas and indigestion. No exertional chest pain or exertional shortness of breath. She is a smoker. She has no history of cardiac disease. No recent travel, surgery or immobilization. No leg pain or swelling. No hemoptysis. No pleuritic discomfort. States she has some burning discomfort in her chest and abdomen at times. No vomiting. No diarrhea or melena. No fever or chills. She had a stress test in the past several years ago which was negative. She has never had a cardiac catheterization. Her only real risk factor is smoking history and her age. Physical Examination: Older female no acute distress vital signs stable afebrile. She does not look septic or toxic. Pulse ox 99% on room air no hypoxia. HEENT exam unremarkable. Neck nontender no lymphadenopathy. Lungs clear to auscultation bilaterally. Heart regular rhythm no murmur. Abdomen soft nontender normal bowel sounds no peritoneal signs. Extremities moves all 4 neurovascular intact. Calves nontender without edema or cords. Neurologically she is awake alert with no focal motor deficits. Test Results: EKG shows sinus rhythm rate is 62 with no acute signs of [place] or ischemia. Unchanged from prior EKG from June of this year. Repeat EKG done and was unchanged. CBC normal white count 9. Hemoglobin 14. Chemistries unremarkable normal creatinine and gap. Troponin normal. Chest x-ray shows chronic changes consistent with her age and smoking history but no acute process. Normal cardiac silhouette and mediastinum. Emergency Department Course and Treatment: Patient has atypical chest discomfort which sounds more like reflux than cardiac etiology. She will undergo a cardiac work-up and be treated with GI cocktail and Protonix to see if that resolves her discomfort. She is not had any exertional symptoms. Repeat exam patient is doing well. She and I discussed her to stop smoking. She is feeling better after the medication. Clinically this does not sound like cardiac etiology. She will be discharged to home. Treatment Plan: Stop smoking. Continue her reflux meds. Follow-up with your doctor. Disposition: Discharge Impression: Acute reflux Atypical chest pain This note was generated with Dragon dictation software. It may contain incorrect words, spelling, and punctuation that were not noted in review of the chart prior to signing ED Disposition - Plan for ED Patient: Referrals: Cory Galvez DO [Primary Care Provider] -
[2019-09-04] MEDS: Pantoprazole Sodium 40 MG Tablet PO (05:05)
[2019-09-04] MEDS: Mag Hydrox/Al Hydrox/Simeth 30 ML UDC PO (05:05)
[2019-09-04 05:19] LABS: Anion Gap 6 (5-15); BUN 11 mg/dL (7-18); BUN/Creat Ratio 11.2 RATIO (10-20); Calcium,Total 9.1 mg/dL (8.5-10.1); Chloride 104 mmol/L (98-107); Creatinine, Serum 0.98 mg/dL (0.55-1.02); EST Glomerular Filtration Rate 61 mL/min (>60); Est Glom Filt Rate - Afr Amer 73 mL/min (>60); Estimated Creatinine Clearance 47.79 ml/min; Glucose 108 mg/dL (74-106); Potassium 3.7 mmol/L (3.5-5.1); Sodium Level 137 mmol/L (136-145)
--- NOTE | 2019-09-04 05:22 | EKG12_ITS ---
Test Reason : CP Blood Pressure : / mmHG Vent. Rate : 062 BPM Atrial Rate : 062 BPM P-R Int : 142 ms QRS Dur : 074 ms QT Int : 412 ms P-R-T Axes : 079 082 062 degrees QTc Int : 418 ms Normal sinus rhythm Normal ECG Confirmed by AHMET GALINDO, RANDAL ([id number]), news video editor YAMILA HOLT ([id number]) on 09/06/2019 9:06:29 AM Referred By: DR GOODMAN Confirmed By:RANDAL LEO MD
[2019-09-04 05:23] VITALS: BP 144/79; PULSE 56; RESP 19; O2SAT 98
--- NOTE | 2019-09-04 05:31 | ED.DEP ---
ED Disposition - Plan for ED Patient: Disposition: Home or Assisted Living Instructions: ED Chest Pain Atypical Unkn Cause Referrals: Cory Galvez DO [Primary Care Provider] - 3-5 Days if not improving Additional Instructions: Absolutely, Positively need to stop smoking !! Use your reflux medication. Follow-up with your doctor if not improving.
== END 2019-09-04 05:42 | disposition home or self-care (01) ==
PROVIDERS: Emergency Provider Emergency Medicine; PCP Student in an Organized Health Care Education/Training Program
DX: K21.9 Gastro-esophageal reflux disease without esophagitis (principal); R07.89 Other chest pain; E78.00 Pure hypercholesterolemia, unspecified; Z72.0 Tobacco use; Z79.82 Long term (current) use of aspirin; Z79.899 Other long term (current) drug therapy; Z90.49 Acquired absence of other specified parts of digestive tract
CPT/HCPCS: 71045; 80048; 84484; 85025; 93005; 99285; A4216

== ENCOUNTER 2020-05-03 09:10 | Emergency (ER) | payer MEDICARE, SELFPAY ==
[2020-05-03 09:11] VITALS: BP 184/98; PULSE 74; RESP 16; TEMP 36.6; O2SAT 100; BMI 19.7
--- NOTE | 2020-05-03 09:48 | EKG12_ITS ---
Test Reason : DYSRHYTHMIA Blood Pressure : / mmHG Vent. Rate : 058 BPM Atrial Rate : 058 BPM P-R Int : 144 ms QRS Dur : 074 ms QT Int : 410 ms P-R-T Axes : 081 082 069 degrees QTc Int : 402 ms Sinus bradycardia Otherwise normal ECG Confirmed by ROCKY GALINDO, DEVANG ([id number]), video news editor WINNIE CORDOVA ([id number]) on 05/09/2020 9:47:12 A M Referred By: MR Confirmed By:SG HIDALGO MD
--- NOTE | 2020-05-03 09:48 | RAD_ITS ---
STUDY: X-RAY CHEST REASON FOR EXAM: Female, 64 years old. REFLUX TECHNIQUE: PA and lateral views of the chest. COMPARISON: Comparison is made with prior study dated 09/04/2019. FINDINGS: EKG electrodes are seen. There is hyperinflation of the lungs consistent with chronic obstructive lung disease (COPD). There is no demonstrated pleural abnormality. Normal size heart. Normal mediastinum and destin. There is prominence of the pulmonary hilar arteries without peripheral pulmonary vascular congestion, suggesting pulmonary hypertension. Normal visualized aortic arch and descending thoracic aorta. Normal visualized thoracic spine. Normal visualized ribs, clavicles, and shoulders. There is no demonstrated abnormality of the visualized soft tissue structures of the upper abdomen. RAD/Chest PA and Lateral IMPRESSION: Hyperinflation. Stable prominence of the central pulmonary arteries. Electronically Signed: Ko Lindsey, at 10:47 EST , Service support ,
--- NOTE | 2020-05-03 09:56 | ED.DCSUM_ITS ---
History of Present Illness Chief Complaint: Chest Other Informant: Patient Narrative: Patient presenting for evaluation secondary to chest pain. Patient describes it as potentially being from her acid reflux. Patient states that recently she has been having a burning sensation in her chest. She reports that it will radiate to her shoulders and her arms. It does seem to get worse when she leans over, and she reports that she has been having foul bitter tasting burps. Patient reports that she is on 2 different types of antacids. Patient denies shortness of breath associated with this. She denies any exertional component. Patient denies any history of heart disease, she is a smoker has a history of hyperlipidemia. She denies any DVT or PE risk factors. She denies any recent illness such as fever cough nausea vomiting or diarrhea. Patient has had 2 stress tests in the past, nothing recent. Review of systems otherwise negative. Past Medical History - Allergies and Home Meds Allergies/Adverse Reactions: Allergies No Known Allergies Allergy (Verified 09/04/19 04:56) Primary Care Physician: Cory Galvez DO [Primary Care Provider] - Prior records reviewed: Yes Past Medical History: - - Hyperlipidemia Surgical History: appendectomy, cholecystectomy Smoking Status: Current every day smoker Alcohol: None Drugs: None - Family History Maternal Family History: Reports: No pertinent history Review of Systems General: Denies: Chills, Fever, Sweats Eyes: Denies: Visual changes - bilaterally, Diplopia ENT: Denies: Rhinorrhea, Sore throat Cardiovascular: Reports: Chest pain Respiratory: Denies: Dyspnea, Cough, Dyspnea on exertion Gastrointestinal: Reports: - - Dyspepsia Genitourinary: Denies: Dysuria, Hematuria, Frequency Musculoskeletal: Denies: Back pain, Extremity Pain Skin: Denies: Rash, Wounds Neurological: Denies: Headache, Weakness, Numbness Physical Exam Vital Signs/Narrative: Vital Signs Temp Pulse Resp BP Pulse Ox 05/03/20 09:11 97.9 F 74 16 184/98 H 100 Inital Vital Signs reviewed: Yes General: Well nourished, Well developed, No Acute Distress Head: Normocephalic, Atraumatic Eyes: Perrl, EOMI ENT: Moist mucous membranes, No rhinorrhea Neck: Supple, Nontender Cardiovascular: Regular rate, Regular rhythm, No murmurs Respiratory: No distress, CTA bilaterally, Chest nontender Abdomen: Soft, Nontender, Nondistended, Normal bowel sounds Back: Nontender, Normal Inspection Extremities: Nontender, No edema Skin: Normal color, No rash Neurological: Alert, Oriented x3, Cranial nerves II-XII grossly intact, Normal Strength, Normal Sensation Psychological: Normal affect, Normal Mood Diagnostic/Tx/Re-eval Chest X-Ray - ED: 2 View, Read by ED Physician, Read by Radiologist, Unchanged Clinical Impression(s) from Imaging Studies Chest X-Ray 05/03/20 09:48 IMPRESSION: Hyperinflation. Stable prominence of the central pulmonary arteries. Electronically Signed: Ko Lindsey, at 10:47 EST , Service support , Laboratory Data 05/03/20 05/03/20 10:06 10:06 WBC 8.4 RBC 5.20 Hgb 14.9 Hct 46.2 MCV 88.8 MCH 28.7 MCHC 32.3 RDW Std Deviation 44.5 H RDW Coeff of Raisa 13.6 Plt Count 255 MPV 10.5 Immature Gran % (Auto) 0.500 Neut % (Auto) 69.3 Lymph % (Auto) 23.9 Archuleta % (Auto) 5.2 Eos % (Auto) 0.6 Baso % (Auto) 0.5 Absolute Neuts (auto) 5.8 Absolute Lymphs (auto) 2.01 Nucleated RBC % 0 Sodium 138 Potassium 4.3 Chloride 104 Carbon Dioxide 28.0 Anion Gap 6 BUN 12 Creatinine 0.86 Estim Creat Clear Calc 53.70 Est GFR (MDRD) Af Amer 84 Est GFR (MDRD) Non-Af 70 BUN/Creatinine Ratio 13.9 Glucose 103 Calcium 9.2 Total Bilirubin 0.40 AST 13 L ALT 21 Alkaline Phosphatase 109 Troponin I < 0.015 Total Protein 7.7 Albumin 4.3 Globulin 3.4 Albumin/Globulin Ratio 1.3 Lipase 43 L - EKG Initial EKG Interpretation: - - Sinus bradycardia with a rate of [address] segments normal T waves normal NV and QTc intervals no evidence of acute ischemia or arrhythmia - Medical Decision Making Patient presented secondary to dyspepsia and possible chest pain. Patient was evaluated with an EKG that was unremarkable. Chest x-ray by my personal review as well as radiology, 2 views shows no evidence of acute changes. CBC chemistry troponin unremarkable. Liver panel and lipase also found to be unremarkable. Patient was given a GI cocktail with some improvement of her symptoms. Patient symptoms seem rather typical for dyspepsia or reflux, her heart score is 3, I do not feel that she requires further work-up or admission. Patient takes o [id number] Prilosec, she will be changed to Protonix. Patient will follow up with Dr. Cheung for further evaluation. ED Disposition - Plan for ED Patient: Disposition: Home or Assisted Living Diagnosis: GERD (gastroesophageal reflux disease) Instructions: ED GERD (Adult) Prescriptions: Pantoprazole Sodium [Protonix] 40 mg PO DAILY #30 tab Transmission Status: Pending to [id number] Referrals: Sagar Cheung MD [STAFF PHYSICIAN] - As Needed
[2020-05-03] MEDS: Mag Hydrox/Al Hydrox/Simeth 30 ML UDC PO (10:05)
[2020-05-03 10:16] LABS: Absolute Lymphocyte Count 2.01 X10^3/uL (0.83-4.51); Absolute Neutrophil Count 5.8 X10^3/uL (2.0-7.7); Basophil# 0.04 X10^3/uL; Basophil% 0.5 % (0-1); Eosinophil# 0.05 X10^3/uL; Eosinophils% 0.6 % (0-5); Hematocrit 46.2 % (37-47); Hemoglobin 14.9 g/dL (12.0-15.0); Lymphocyte # 2.01 X10^3/ul (4.0); Lymphocyte % 23.9 % (19-41); Mean Corp Hgb Conc 32.3 g/dL (32-36); Mean Corpuscular Hgb 28.7 pg (27.0-32.0); Mean Corpuscular Volume 88.8 fL (81-99); Mean Platelet Vol. 10.5 fl (6.2-12.0); Monocyte# 0.44 X10^3/uL; Monocyte% 5.2 % (0-10); NRBC Flagged by Analyzer 0 % (0-5); Neutrophil # 5.84 X10^3/uL (2.7-7.7); Neutrophil % 69.3 % (47-70); Platelet Count 255 K/mm3 (150-450); RBC Distribution Width CV 13.6 % (11.6-14.6); RBC Distribution Width SD 44.5 fl (35.1-43.9); White Blood Count 8.4 K/mm3 (4.4-11.0)
[2020-05-03 10:31] LABS: ALB/GLOB Ratio 1.3 RATIO (0.9-2.4); AST(SGOT) 13 U/L (15-37); Alanine Aminotransfer ALT/SGPT 21 U/L (13-56); Albumin, Serum 4.3 g/dL (3.2-5.0); Alkaline Phosphatase 109 U/L (45-117); Anion Gap 6 (5-15); BUN 12 mg/dL (7-18); BUN/Creat Ratio 13.9 RATIO (10-20); Calcium,Total 9.2 mg/dL (8.5-10.1); Chloride 104 mmol/L (98-107); Creatinine, Serum 0.86 mg/dL (0.55-1.02); EST Glomerular Filtration Rate 70 mL/min (>60); Est Glom Filt Rate - Afr Amer 84 mL/min (>60); Globulin 3.4 g/dL (2.2-4.2); Glucose 103 mg/dL (74-106); Lipase 43 U/L (73-393); Potassium 4.3 mmol/L (3.5-5.1); Protein, Total 7.7 g/dL (6.4-8.2); Sodium Level 138 mmol/L (136-145)
[2020-05-03 11:30] VITALS: BP 158/78; PULSE 62; RESP 18; O2SAT 99
[2020-05-03 12:01] VITALS: BP 152/90; PULSE 60; RESP 15; O2SAT 98
== END 2020-05-03 12:04 | disposition home or self-care (01) ==
PROVIDERS: Emergency Provider Emergency Medicine; PCP Student in an Organized Health Care Education/Training Program
DX: K21.9 Gastro-esophageal reflux disease without esophagitis (principal); R07.9 Chest pain, unspecified; E78.5 Hyperlipidemia, unspecified; F17.200 Nicotine dependence, unspecified, uncomplicated; Z79.82 Long term (current) use of aspirin; Z79.899 Other long term (current) drug therapy; Z90.49 Acquired absence of other specified parts of digestive tract
CPT/HCPCS: 71046; 80053; 83690; 84484; 85025; 93005; 99283; A4216

== ENCOUNTER 2020-06-28 18:44 | Emergency (ER) | payer MEDICARE, SELFPAY ==
[2020-06-28 18:44] VITALS: BP 154/91; PULSE 90; RESP 16; TEMP 36.4; O2SAT 98; BMI 18.8
--- NOTE | 2020-06-28 19:19 | EKG12_ITS ---
Test Reason : ABD PAIN Blood Pressure : / mmHG Vent. Rate : 059 BPM Atrial Rate : 059 BPM P-R Int : 148 ms QRS Dur : 086 ms QT Int : 410 ms P-R-T Axes : 080 086 075 degrees QTc Int : 405 ms Sinus bradycardia Otherwise normal ECG Confirmed by ROCKY GALINDO, DEVANG ([id number]), photography editor WINNIE CORDOVA ([id number]) on 07/02/2020 12:25:40 P M Referred By: BARBRA Confirmed By:SG HIDALGO MD
[2020-06-28] MEDS: 0.9% Normal Saline 1,000 ML 150 ML IV (19:31)
[2020-06-28 19:34] LABS: Bacteria 0 SEEN /hpf (None Seen); Mucous, Urine 0 SEEN /hpf (<or=2+); Red Blood Cells-Urine 0 SEEN /hpf (0-5); Squamous Epithelial Cells - UA 0 SEEN /hpf (5-10); White Blood Cells 0 SEEN /hpf (0-5)
--- NOTE | 2020-06-28 19:35 | RAD_ITS ---
STUDY: X-RAY CHEST REASON FOR EXAM: Female, 64 years old. right sided abdomen pain with nausea TECHNIQUE: Single AP portable view of the chest. COMPARISON: 05/03/2020 FINDINGS: There is hyperinflation of the lungs consistent with chronic obstructive lung disease (COPD). No infiltrates or effusions. There is no demonstrated pleural abnormality. Normal size heart. Normal mediastinum and destin. Normal visualized pulmonary arteries. Normal visualized aortic arch and descending thoracic aorta. Normal visualized thoracic spine. Normal visualized ribs, clavicles, and shoulders. There is no demonstrated abnormality of the visualized soft tissue structures of the upper abdomen. RAD/Chest 1 View (Portable) IMPRESSION: There are findings consistent with COPD. There is no evidence of acute chest disease. Electronically Signed: Waldemar Moody MD at 19:46 EST , Service support ,
[2020-06-28 19:37] LABS: Absolute Lymphocyte Count 2.53 X10^3/uL (0.83-4.51); Absolute Neutrophil Count 5.7 X10^3/uL (2.0-7.7); Basophil# 0.05 X10^3/uL; Basophil% 0.6 % (0-1); Eosinophil# 0.08 X10^3/uL; Eosinophils% 0.9 % (0-5); Hematocrit 44.2 % (37-47); Hemoglobin 14.3 g/dL (12.0-15.0); Lymphocyte # 2.53 X10^3/ul (4.0); Lymphocyte % 28.5 % (19-41); Mean Corp Hgb Conc 32.4 g/dL (32-36); Mean Corpuscular Hgb 28.6 pg (27.0-32.0); Mean Corpuscular Volume 88.4 fL (81-99); Mean Platelet Vol. 11.4 fl (6.2-12.0); Monocyte# 0.46 X10^3/uL; Monocyte% 5.2 % (0-10); NRBC Flagged by Analyzer 0 % (0-5); Neutrophil # 5.74 X10^3/uL (2.7-7.7); Neutrophil % 64.6 % (47-70); Platelet Count 276 K/mm3 (150-450); RBC Distribution Width CV 13.6 % (11.6-14.6); White Blood Count 8.9 K/mm3 (4.4-11.0)
[2020-06-28 19:43] LABS: Glucose, Dipstick Normal (Normal); Ketone-Dipstick Negative (Negative); Leukocyte Esterase-Dipstick 25 /ul (Negative); Nitrite-Dipstick Negative (Negative); Occult Blood-Urine Negative /ul (Negative); Protein-Dipstick Negative (Negative); Urine Bilirubin Dipstick Negative (Negative); Urine Urobilinogen Normal (Normal); Urine pH 6.5 (5.0 - 8.0)
[2020-06-28 19:45] LABS: D-Dimer Quantitative (DVT/PE) < 0.27 FEU/ug/m (0.27-0.49)
[2020-06-28 19:56] LABS: ALB/GLOB Ratio 1.2 RATIO (0.9-2.4); AST(SGOT) 16 U/L (15-37); Alanine Aminotransfer ALT/SGPT 22 U/L (13-56); Albumin, Serum 3.9 g/dL (3.2-5.0); Alkaline Phosphatase 107 U/L (45-117); Anion Gap 4 (5-15); BUN 13 mg/dL (7-18); BUN/Creat Ratio 14.4 RATIO (10-20); Calcium,Total 8.8 mg/dL (8.5-10.1); Chloride 107 mmol/L (98-107); EST Glomerular Filtration Rate 66 mL/min (>60); Est Glom Filt Rate - Afr Amer 80 mL/min (>60); Estimated Creatinine Clearance 49.09 ml/min; Globulin 3.2 g/dL (2.2-4.2); Glucose 121 mg/dL (74-106); Lipase 48 U/L (73-393); Potassium 3.4 mmol/L (3.5-5.1); Protein, Total 7.1 g/dL (6.4-8.2); Sodium Level 140 mmol/L (136-145)
[2020-06-28 19:56] LABS: Color, Urine Yellow (Yellow); Urine Clarity Clear (Clear)
--- NOTE | 2020-06-28 20:15 | CT_ITS ---
STUDY: CT ABDOMEN AND PELVIS WITH CONTRAST REASON FOR EXAM: Female, 64 years old. RIGHT SIDE ABD PAIN, NAUSEA. HX OF APPY AND MABEL RADIATION DOSAGE (If Supplied By Facility): CTDIvol = ( 11.18 ) mGy, DLP = ( 287.92 ) mGycm TECHNIQUE: Transaxial images were obtained from the dome of the diaphragm to the symphysis pubis without oral contrast. IV 100mL Isovue-300 was administered. Sagittal and coronal images were reconstructed. Individualized dose optimization techniques were used for this CT. COMPARISON: 11/06/2014. FINDINGS: The visualized lung bases are unremarkable. The visualized portions of the heart are within normal limits. Normal liver. There are surgical clips in the gallbladder fossa consistent with a prior cholecystectomy. Normal spleen. Normal pancreas. Normal bilateral adrenal glands. Normal right kidney. Normal left kidney. Evaluation of the GI tract is limited by absence of oral contrast. Cannot exclude stomach wall thickening. No dilated loops of bowel or evidence for obstruction. Cannot exclude segmental thickening of the sweeney of the small or large bowel. Cannot exclude enteritis or colitis. Moderate diffuse fecal retention. Appendix is absent. There is diffuse atherosclerotic calcification of the abdominal aorta, without a demonstrated aneurysm. Normal inferior vena cava. Normal retroperitoneum. Normal urinary bladder. There is atrophy of the uterus. Normal abdominal wall. Normal osseous structures. CT/Abdomen/Pelvis W IV Cont ONLY IMPRESSION: No definite acute or significant abnormality seen. Electronically Signed: Waldemar Moody MD at 20:49 EST , Service support ,
--- NOTE | 2020-06-28 21:02 | ED.DCSUM_ITS ---
- ER Visit Summary Date of Service: 06/28/20 Chief Complaint: [Abdominal pain and dizziness] History of Present Illness: The patient is a 64 F [presents to the emergency department with complaint of abdominal pain that she has had for couple weeks that she describes as towards her right flank and radiating around to the front of the abdomen towards the left side of the abdomen. Patient states the pain comes and goes and it is sharp and stabbing at times. Patient also states she has been feeling lightheaded and dizzy for about the same amount of time. Patient lightheaded especially with standing and walking at times. She denies vertiginous symptoms. Patient has had a cough for several weeks and states that she had bronchitis 2 weeks ago. Patient was tested for COVID-19 and was negative. She denies recent travel or surgery. Patient has history of GERD. Patient has had prior appendectomy as well as cholecystectomy. Patient denies nausea or vomiting. She denies blood in her stool or black tarry stool. She denies urinary symptoms.] Physical Examination: [HEENT-PERRLA, EOMI. Cranial nerves II through XII grossly intact. TMs clear. Mucous membranes moist. No adenopathy. Cardiovascular-regular rate and rhythm without murmur or ectopy Lungs-clear to auscultation, chest wall stable without crepitus or subcu emphysema Abdomen-normoactive bowel sounds, soft. Patient has some mild tenderness diffusely. There is no rebound, rigidity, or peritoneal signs. Extremities-intact ?4, normal range of motion, normal pulses, atraumatic] Test Results: [EKG obtained arrival shows sinus rhythm with a ventricular rate of 59 bpm with no acute ST segment changes. CBC with it showed a white of 8.9, hemoglobin 14, hematocrit 49, platelet 276. Chemistries unremarkable. LFTs were normal. Lipase was 48. Urinalysis normal. D-dimer was less than 0.27. Troponin was less than 0.015. Chest x-ray 1 view obtained interpreted by myself as nothing acute. Radiology in agreement. Patient had a CT of the abdomen pelvis with IV contrast which was unremarkable.] Orthostatic vital signs were negative. Emergency Department Course and Treatment: [IV line established on arrival.] Treatment Plan: [Patient advised to follow-up with primary care physician within next 3 to 5 days. Patient will use ibuprofen or Tylenol for discomfort.] Disposition: [Discharged home in stable condition] Impression: [Dizziness-etiology uncertain Abdominal pain-etiology uncertain] This note was generated with [employer] dictation software. It may contain incorrect words, spelling, and punctuation that were not noted in review of the chart prior to signing ED Disposition - Plan for ED Patient: Referrals: Cory Galvez DO [Primary Care Provider] -
--- NOTE | 2020-06-28 21:07 | ED.DEP ---
ED Disposition - Plan for ED Patient: Instructions: ED Abdominal Pain Unkn Cause Fem, ED Dizziness, Uncertain Cause Referrals: Cory Galvez DO [Primary Care Provider] - 3-5 Days
[2020-06-28 21:10] VITALS: BP 108/73; BP 122/83; BP 137/80; PULSE 54; PULSE 60; PULSE 61; RESP 17; O2SAT 96
[2020-06-28 21:17] VITALS: BP 122/83; RESP 16
== END 2020-06-28 21:26 | disposition home or self-care (01) ==
LOC: ED 19:27
PROVIDERS: Emergency Provider Emergency Medicine; PCP Student in an Organized Health Care Education/Training Program
DX: R42 Dizziness and giddiness (principal); R10.9 Unspecified abdominal pain; R05 Cough; K21.9 Gastro-esophageal reflux disease without esophagitis; Z72.0 Tobacco use; Z79.82 Long term (current) use of aspirin; Z79.899 Other long term (current) drug therapy; Z90.49 Acquired absence of other specified parts of digestive tract
CPT/HCPCS: 71045; 74177; 80053; 81001; 83690; 84484; 85025; 85379; 93005; 96360; 96361; 99284; J7030; Q9967; A4216

== ENCOUNTER 2020-07-02 01:31 | Emergency (ER) | payer MEDICARE, SELFPAY ==
[2020-07-02 01:31] VITALS: BP 184/88; PULSE 65; RESP 16; TEMP 36.4; O2SAT 97; BMI 18.7
[2020-07-02 01:56] LABS: Absolute Lymphocyte Count 3.46 X10^3/uL (0.83-4.51); Absolute Neutrophil Count 6.3 X10^3/uL (2.0-7.7); Basophil# 0.06 X10^3/uL; Basophil% 0.6 % (0-1); Eosinophil# 0.17 X10^3/uL; Eosinophils% 1.6 % (0-5); Hematocrit 46.1 % (37-47); Lymphocyte # 3.46 X10^3/ul (4.0); Lymphocyte % 32.7 % (19-41); Mean Corp Hgb Conc 32.5 g/dL (32-36); Mean Corpuscular Hgb 29.1 pg (27.0-32.0); Mean Corpuscular Volume 89.3 fL (81-99); Mean Platelet Vol. 11.3 fl (6.2-12.0); Monocyte# 0.55 X10^3/uL; Monocyte% 5.2 % (0-10); NRBC Flagged by Analyzer 0 % (0-5); Neutrophil # 6.28 X10^3/uL (2.7-7.7); Neutrophil % 59.4 % (47-70); Platelet Count 280 K/mm3 (150-450); RBC Distribution Width CV 13.5 % (11.6-14.6); RBC Distribution Width SD 44.5 fl (35.1-43.9); Red Blood Count 5.16 M/mm3 (4.2-5.4); White Blood Count 10.6 K/mm3 (4.4-11.0)
[2020-07-02] MEDS: Ondansetron 4 MG/2 ML Vial IV (01:57)
[2020-07-02] MEDS: HYDROmorphone 1 MG/ML Syringe IV (01:57)
--- NOTE | 2020-07-02 01:59 | CT_ITS ---
HISTORY: C/O RIGHT SIDE PAIN X 2 WEEKS THAT RADIATES TO RIGHT GROIN AND ANTERIOR ABDOMEN, HX APPY, GB, HTN, PT HAD CT ON 06-28-20 FOR SAME C/O ADDITIONAL HISTORY: None provided. EXAMINATION/TECHNIQUE: CT Abdomen And Pelvis W/ Contrast Injection CONTRAST: 75mL Isovue-370 IV contrast. Enteric contrast was given. A radiation dose optimization technique was used for this scan. Number of images including paperwork: 435 COMPARISON: 06/28/2020 FINDINGS: LOWER THORAX: No consolidation or pleural effusion. Mild basilar atelectasis and/or scarring. Emphysema. LIVER: No concerning focal lesion. GALLBLADDER: Cholecystectomy. BILE DUCTS: No significant biliary dilatation. SPLEEN: Unremarkable. PANCREAS: Unremarkable. ADRENAL GLANDS: Unremarkable. KIDNEYS/URETERS: Unremarkable. BOWEL: No bowel obstruction. No significant bowel wall thickening. No localized inflammation. Mildly prominent distal small bowel fluid. APPENDIX: No evidence of appendicitis. FREE FLUID: No significant free fluid. FREE AIR: None. LYMPH NODES: No pathologic appearing adenopathy. PERITONEUM, RETROPERITONEUM AND MESENTERY: Otherwise unremarkable. VASCULATURE: Atherosclerotic calcification. PELVIS: Unremarkable bladder. ABDOMINAL WALL: Unremarkable. OSSEOUS AND SOFT TISSUE STRUCTURES: No acute skeletal findings. CT/Abdomen/Pelvis WITH Contrast IMPRESSION: Prominent small bowel fluid, a nonspecific finding which can be seen with enteritis. Individualized dose optimization techniques were used for this CT. at 0410 Reported and signed by: Tootie Cardenas MD Electronically Signed: Tootie Cardenas MD at 4:10 EST Tel , Service support ,
[2020-07-02] MEDS: 0.9% Normal Saline 1,000 ML 125 ML IV (02:07)
[2020-07-02 02:09] LABS: ALB/GLOB Ratio 1.4 RATIO (0.9-2.4); AST(SGOT) 16 U/L (15-37); Alanine Aminotransfer ALT/SGPT 21 U/L (13-56); Albumin, Serum 4.4 g/dL (3.2-5.0); Alkaline Phosphatase 112 U/L (45-117); Anion Gap 7 (5-15); BUN 9 mg/dL (7-18); BUN/Creat Ratio 9.5 RATIO (10-20); Calcium,Total 9.3 mg/dL (8.5-10.1); Chloride 106 mmol/L (98-107); Creatinine, Serum 0.94 mg/dL (0.55-1.02); EST Glomerular Filtration Rate 63 mL/min (>60); Est Glom Filt Rate - Afr Amer 76 mL/min (>60); Globulin 3.2 g/dL (2.2-4.2); Glucose 107 mg/dL (74-106); Lipase 56 U/L (73-393); Potassium 3.8 mmol/L (3.5-5.1); Protein, Total 7.6 g/dL (6.4-8.2); Sodium Level 141 mmol/L (136-145)
[2020-07-02 02:12] LABS: Bacteria 0 SEEN /hpf (None Seen); Mucous, Urine 0 SEEN /hpf (<or=2+); Red Blood Cells-Urine 0 SEEN /hpf (0-5)
[2020-07-02 02:13] LABS: Color, Urine Yellow (Yellow); Glucose, Dipstick Normal (Normal); Ketone-Dipstick Negative (Negative); Leukocyte Esterase-Dipstick 25 /ul (Negative); Nitrite-Dipstick Negative (Negative); Occult Blood-Urine Negative /ul (Negative); Protein-Dipstick Negative (Negative); Specific Gravity, Urine 1.015 (1.002-1.030); Urine Bilirubin Dipstick Negative (Negative); Urine Clarity Clear (Clear); Urine Urobilinogen Normal (Normal)
[2020-07-02 02:18] LABS: Squamous Epithelial Cells - UA 0-5 SEEN /hpf (5-10); White Blood Cells 0-5 SEEN /hpf (0-5)
[2020-07-02 02:18] LABS: Lactic Acid 0.9 mmol/L (0.4-1.9)
[2020-07-02 02:21] LABS: D-Dimer Quantitative (DVT/PE) <= 0.27 FEU/ug/m (0.27-0.49)
--- NOTE | 2020-07-02 02:21 | ED.VISSUMM ---
- ER Visit Summary Date of Service: 07/02/20 Chief Complaint: [Abdominal pain] History of Present Illness: The patient is a 65 F [presents to the emergency department complaint of abdominal pain for the last 2 weeks. Patient was seen in the emergency department on the for the same complaint and had significant work-up including labs and CT scan of the abdomen pelvis with IV contrast that were all essentially unremarkable. Patient states that she feels like the pain is gotten worse. She describes it as starting in her right back and radiating toward the midline of her right abdomen. She has had some mild nausea but no vomiting. She denies any diarrhea. She denies blood in her stool or black tarry stool. She denies chest pain or shortness of breath. Patient has had prior appendectomy and cholecystectomy. Patient denies dysuria, urgency, or frequency.] Physical Examination: [HEENT-PERRLA, EOMI. Cranial nerves II through XII grossly intact. TMs clear. Mucous membranes moist. No adenopathy. Cardiovascular-regular rate and rhythm without murmur or ectopy Lungs-clear to auscultation, chest wall stable without crepitus or subcu emphysema Abdomen-normoactive bowel sounds, soft. Patient seems to have some discomfort over the right lower posterior ribs that intermittently can reproduce some of her pain and then her abdominal exam seems benign and inconsistently I am able to reproduce some pain in the right lower quadrant. There is no rebound, rigidity, or peritoneal signs. No masses palpated. There are no rashes noted to the skin of the back or abdomen. Extremities-intact ?4, normal range of motion, normal pulses, atraumatic] Test Results: [CBC with differential showed a white count 10.6, hemoglobin 15, hematocrit 46, platelet 280. Chemistries normal. LFTs normal. Lipase was 56. Urinalysis normal. D-dimer is less than 0.27. CT scan of the abdomen pelvis with IV and p.o. contrast ordered and again showed nothing significant only small amount of increased fluid within the small bowel which is nonspecific and can be related to enteritis. Patient has not been having diarrhea and she had a bowel movement yesterday.] Emergency Department Course and Treatment: [Patient was medicated with morphine and Zofran and she had good pain relief with that. At this point the etiology of patient's pain is unclear. I will refer her to general surgery as she may need further evaluation with possibly endoscopy or colonoscopy. Patient states that she thinks it has been 5 years since her last colonoscopy and she is due to go back and have that repeated.] Treatment Plan: [Patient given a prescription for [place] for pain. Patient advised to return if increasing pain, fever, vomiting, or condition should worsen anyway.] Disposition: [Discharged home in stable condition] Impression: [Abdominal pain-etiology uncertain] This note was generated with [employer] dictation software. It may contain incorrect words, spelling, and punctuation that were not noted in review of the chart prior to signing ED Disposition - Plan for ED Patient: Referrals: Cory Galvez DO [Primary Care Provider] -
[2020-07-02] MEDS: proMETHazine 25 MG/ML Syringe 12.5 MG IV (02:52)
[2020-07-02 03:26] VITALS: BP 161/82; PULSE 55; RESP 17; O2SAT 96
--- NOTE | 2020-07-02 04:25 | DCINST.ED_ITS ---
ED Disposition - Plan for ED Patient: Instructions: ED Abdominal Pain Unkn Cause Fem Prescriptions: Hydrocodone Bitart/Apap 5-325 [[employer] 5MG-325MG] 1 tab PO Q4H PRN PRN 2 Days #14 tab PRN Reason: Pain Prescription Printed Referrals: Cory Galvez DO [Primary Care Provider] - 3-5 Days Nannette Ott MD [STAFF PHYSICIAN] - 3-5 Days
[2020-07-02 04:29] VITALS: BP 163/72; PULSE 55; RESP 18; O2SAT 98
== END 2020-07-02 04:30 | disposition home or self-care (01) ==
PROVIDERS: Emergency Provider Emergency Medicine; PCP Student in an Organized Health Care Education/Training Program
DX: R10.31 Right lower quadrant pain (principal); R11.0 Nausea; Z72.0 Tobacco use; Z79.82 Long term (current) use of aspirin; Z79.899 Other long term (current) drug therapy
CPT/HCPCS: 74177; 80053; 81001; 83605; 83690; 85025; 85379; 96361; 96374; 96375; 99284; J7030; Q9967; A4216; J2405

== ENCOUNTER 2020-07-09 09:44 | Observation (INO) | payer MEDICARE, SELFPAY ==
[2020-07-09] VITALS (10 sets, daily range): BP systolic 102–153; BP diastolic 64–102; PULSE 53–88; RESP 15–18; TEMP 36.4–36.9; O2SAT 96–100; BMI 18.5; BMI 18.1
--- NOTE | 2020-07-09 09:50 | EKG12_ITS ---
Test Reason : Blood Pressure : / mmHG Vent. Rate : 049 BPM Atrial Rate : 049 BPM P-R Int : 146 ms QRS Dur : 082 ms QT Int : 440 ms P-R-T Axes : 080 083 076 degrees QTc Int : 397 ms Sinus bradycardia Otherwise normal ECG Confirmed by MIGUELANGEL GALINDO, CROW ([id number]), deputy editor in chief WINNIE CORDOVA ([id number]) on 07/11/2020 9:31:59 AM Referred By: LALI Confirmed By:CROW MEANS MD
--- NOTE | 2020-07-09 09:54 | RAD_ITS ---
STUDY: X-RAY CHEST REASON FOR EXAM: Female, 65 years old. Chest pain TECHNIQUE: Single AP portable view of the chest. COMPARISON: 06/28/2020 FINDINGS: The lungs are clear and expanded. There is no demonstrated pleural abnormality. Normal size heart. Normal mediastinum and destin. Normal visualized pulmonary arteries. Normal visualized aortic arch and descending thoracic aorta. Normal visualized thoracic spine. Normal visualized ribs, clavicles, and shoulders. There is no demonstrated abnormality of the visualized soft tissue structures of the upper abdomen. RAD/Chest 1 View (Portable) IMPRESSION: Normal x-ray examination of the chest. Electronically Signed: Sagar Muñoz MD at 10:17 EST Tel , Service support ,
[2020-07-09] MEDS: Nitroglycerin SL (ED/IMG/CATH) 0.4 MG TABLET SUBLINGUAL (09:59)
[2020-07-09 10:00] LABS: Absolute Lymphocyte Count 2.07 X10^3/uL (0.83-4.51); Absolute Neutrophil Count 5.5 X10^3/uL (2.0-7.7); Basophil# 0.04 X10^3/uL; Basophil% 0.5 % (0-1); Eosinophil# 0.11 X10^3/uL; Eosinophils% 1.3 % (0-5); Hematocrit 48.5 % (37-47); Hemoglobin 15.9 g/dL (12.0-15.0); Lymphocyte # 2.07 X10^3/ul (4.0); Lymphocyte % 25.1 % (19-41); Mean Corp Hgb Conc 32.8 g/dL (32-36); Mean Corpuscular Hgb 29.1 pg (27.0-32.0); Mean Corpuscular Volume 88.8 fL (81-99); Mean Platelet Vol. 11.4 fl (6.2-12.0); Monocyte# 0.46 X10^3/uL; Monocyte% 5.6 % (0-10); NRBC Flagged by Analyzer 0 % (0-5); Neutrophil # 5.53 X10^3/uL (2.7-7.7); Platelet Count 265 K/mm3 (150-450); RBC Distribution Width CV 13.5 % (11.6-14.6); RBC Distribution Width SD 43.8 fl (35.1-43.9); Red Blood Count 5.46 M/mm3 (4.2-5.4); White Blood Count 8.3 K/mm3 (4.4-11.0)
[2020-07-09] MEDS: Ondansetron 4 MG/2 ML Vial IV (10:00)
[2020-07-09] MEDS: Aspirin 81 MG TAB.CHEW 324 MG PO (10:00)
--- NOTE | 2020-07-09 10:00 | ED.VIS.GEN ---
History of Present Illness Chief Complaint: Chest Pain Informant: Patient Onset: Yesterday Context: Gradual Onset Timing: Intermittent Current Severity: Moderate Maximum Severity: Moderate Narrative: Patient is an otherwise healthy 65-year-old female presents to the emergency department chest pain. She states that the symptoms began yesterday. She states she has had this pain in the past, but not nearly as severe. She states today, it started in her left substernal area. She states she felt her heart was racing. The pain went to her arm which she states felt tingly. She was also short of breath and nauseated. Patient denies any history of coronary vascular disease. She does have a history of prior heart murmur, but no history of prior DE. She states that for the past week, if she walks a distance, she will get the pain. She denies fever or chills. Prior similar symptoms: Yes Recent Illness/Hospitalization: No Past Medical History - Allergies and Home Meds Allergies/Adverse Reactions: Allergies No Known Allergies Allergy (Verified 07/09/20 09:44) Prior records reviewed: Yes Past Medical History: None Surgical History: appendectomy, cholecystectomy Smoking Status: Current every day smoker - Family History Maternal Family History: Reports: No pertinent history Review of Systems General: Denies: Chills, Fever, Sweats Eyes: Denies: Visual changes - bilaterally, Diplopia ENT: Denies: Rhinorrhea, Sore throat Cardiovascular: Reports: Chest pain, Heart racing. Denies: Palpitations Respiratory: Denies: Dyspnea, Cough, Dyspnea on exertion Gastrointestinal: Reports: Nausea. Denies: Abdominal pain, Vomiting, Diarrhea, Melena, Hematochezia Genitourinary: Denies: Dysuria, Hematuria, Frequency Musculoskeletal: Denies: Back pain, Extremity Pain Skin: Denies: Rash, Wounds Neurological: Denies: Headache, Weakness, Numbness Physical Exam Vital Signs/Narrative: Vital Signs Temp Pulse Resp BP Pulse Ox 07/09/20 09:45 97.5 F L 88 15 153/86 H 96 Inital Vital Signs reviewed: Yes General: Well nourished, Well developed, No Acute Distress Head: Normocephalic, Atraumatic Eyes: Perrl, EOMI ENT: Moist mucous membranes, No rhinorrhea Neck: Supple, Nontender Cardiovascular: Regular rate, Regular rhythm, No murmurs Respiratory: No distress, CTA bilaterally, Chest nontender Abdomen: Soft, Nontender, Nondistended, Normal bowel sounds Back: Nontender, Normal Inspection Extremities: Nontender, No edema Skin: Normal color, No rash Neurological: Alert, Oriented x3, Cranial nerves II-XII grossly intact, Normal Strength, Normal Sensation Psychological: Normal affect, Normal Mood Diagnostic/Tx/Re-eval Chest X-Ray - ED: 1 View, Read by ED Physician, Normal, Heart, Lungs, Mediastinum - Rhythm Strip Rhythm Strip: Sinus Rhythm Rate: 80 Ectopy: None - EKG Initial EKG Interpretation: Sinus Rhythm, No Acute Injury Pattern Prior: Unchanged - Medical Decision Making The patient presents with chest pain. It sounds like she has been having intermittent anginal symptoms with exertion. Today, she had the pain at rest. She describes it as a tightness. Her pain was relieved with 1 nitro. EKG demonstrates sinus rhythm without evidence of acute ischemia. Chest x-ray reviewed by myself shows no evidence of enlarged cardiac silhouette, effusion, or infiltrate. Given the patient's age and anginal symptoms, I do feel that she would benefit from observation for cardiac stress testing. The patient was discussed with the hospitalist. The patient does have a heart score of 4. Impression 1. Chest pain ED Disposition - Plan for ED Patient:
[2020-07-09 10:17] LABS: Anion Gap 8 (5-15); BUN 15 mg/dL (7-18); BUN/Creat Ratio 12.2 RATIO (10-20); Calcium,Total 9.3 mg/dL (8.5-10.1); Chloride 102 mmol/L (98-107); Creatinine, Serum 1.23 mg/dL (0.55-1.02); EST Glomerular Filtration Rate 46 mL/min (>60); Est Glom Filt Rate - Afr Amer 56 mL/min (>60); Glucose 121 mg/dL (74-106); Potassium 3.5 mmol/L (3.5-5.1); Sodium Level 136 mmol/L (136-145)
[2020-07-09 10:26] LABS: BNP,B-Type NATRIURETIC PEPTIDE 15.2 pg/mL (0-100)
--- NOTE | 2020-07-09 13:10 | EKG12_ITS ---
Test Reason : CP Blood Pressure : / mmHG Vent. Rate : 070 BPM Atrial Rate : 070 BPM P-R Int : 136 ms QRS Dur : 072 ms QT Int : 380 ms P-R-T Axes : 084 088 045 degrees QTc Int : 410 ms Normal sinus rhythm with sinus arrhythmia Nonspecific ST abnormality Abnormal ECG Confirmed by AHMET GALINDO, RANDAL ([id number]), advertising editor WINNIE CORDOVA ([id number]) on 07/11/2020 12:41:18 PM Referred By: MICHELLE Confirmed By:RANDAL LEO MD
--- NOTE | 2020-07-09 19:53 | HP.PCM_ITS ---
Problem List (1) Chest pain Status: Acute Qualifiers: Chest pain type: precordial pain Qualified Code(s): R07.2 - Precordial pain History of Present Illness Date of Admission: 07/09/20 Chief Complaint: Precordial chest pain The patient is a 65 year old F who was seen in the emergency room at [facility] with a chief complaint of chest pain which she described as a pounding in her chest in the precordial area of her chest which began at 7:30 AM this morning at rest. Patient denies any radiation into her neck but she states her left arm was also hurting her and she had shortness of breath and nausea. Patient further patient explains that she has had chest pain off and on for the last 2 weeks that had lasted only a minute or 2 in duration also. Work- up in the emergency room included an EKG which showed a normal sinus rhythm without evidence of ischemia, chest x-ray was unremarkable, cardiac enzymes were unremarkable. Patient was given a nitroglycerin in the emergency room and she had taken an ibuprofen at home and these 2 things together alleviated her chest pain completely. Patient was placed in observation status on PCU, cardiac enzymes will be cycled, because of her complaints of possible palpitations, I decided to order an echocardiogram on the patient also, if her enzymes remain negative, she will undergo a treadmill nuclear stress test tomorrow. Past Medical History Past Medical History (Chronic Problems): Chronic Problems GERD (gastroesophageal reflux disease) (Chronic) Allergies No Known Allergies Allergy (Verified 07/09/20 09:44) Home Medications: Ambulatory Orders Medication Instructions Recorded Fluoxetine [Prozac] 20 mg PO DAILY 10/19/13 Aspirin [Aspirin, Baby] 81 mg PO DAILY@0800 05/27/17 Atorvastatin Calcium 20 mg PO DAILY 05/27/17 Lansoprazole [Prevacid] 30 mg PO DAILY 05/27/17 Fluticasone 0.05% [Flonase Nasal 2 spray NASAL DAILY PRN 07/09/20 [place]] Surgical History: appendectomy, cholecystectomy Psychiatric History: No pertinent psych hx [employer] History: No pertinent [employer] history Lives: Spouse/ Significant Other Smoking Status: Heavy Smoker (>10/day) Tobacco Use: Cigarettes Alcohol: None Drugs: None - *Family History Maternal History Items: - - Cirrhosis-nonalcoholic Paternal History Items: Heart Disease - CHF Review of Systems Constitutional: Denies: Anorexia, Chills, Fever, Night Sweats, Malaise, Weakness, Weight Change Eyes: Denies: Cataracts, Conjunctivae Inflammation, Double vision, Drainage HEENT: Denies: Difficulty Swallowing, Dysphasia, Ear Pain, Eye Pain, Hearing Changes, Nasal bleeding, Nasal Congestion, Post Nasal Drip Cardiovascular: Reports: Chest Pain, Palpitations. Denies: Claudication, Chest Pressure, Chest Tightness, Heaviness, Syncope Respiratory: Reports: Shortness of Breath. Denies: Cough, Hemoptysis, Pleuritic Pain, Shortness of breath at rest, Shortness of breath upon exertion Gastrointestinal: Reports: Nausea. Denies: Abdominal Pain, Constipation, Diarrhea, Hematemesis, Hematochezia, Melena, Vomiting Genitourinary: Denies: Dysuria, Frequency, Hematuria, Hesitancy, Nocturia, Retention, Urgency Musculoskeletal: Denies: Back Pain, Foot Pain, Hand Pain, Joint Pain, Joint stiffness, Joint swelling, Joint Tenderness, Leg Pain Skin: Denies: Dryness, Pruritis, Rash Neurological: Denies: Blurred vision, Double vision, Slurred speech, Difficulty swallowing, Focal weakness, Headaches, Numbness, Tingling Psychiatric: Denies: Anxiety, Depression, Homicidal Ideations, Suicidal I deations Endocrine: Denies: Change in Body Habitus, Heat/ Cold Intolerance, Polydipsia, Polyuria Hematologic/ Lymphatic: Denies: Adenopathy, Anemia, Easy Bruising, Easy Bleeding, Petechiae, Purpura VTE Information - Inpt Only VTE Present on Admission: No VTE Mechan Device Prophylaxis: None VTE Pharm Prophylaxis ordered?: No Reason prophylaxis not ordered:: Treatment Not Indicated - Physical Exam Vitals/I&O's: Vital Signs Temp Pulse Resp BP Pulse Ox 98.4 F 56 L 18 102/64 97 07/09/20 17:32 07/09/20 17:32 07/09/20 17:32 07/09/20 17:32 07/09/20 17:32 Oxygen Delivery Method Room Air Weight: 48.166 kg Body Mass Index (BMI) 18.1 Intake and Output for Last 24 Hours 07/07/20 07/08/20 07/09/20 23:59 23:59 23:59 Intake Total 400 / 400 Balance 400 / 400 General: Alert, Oriented x3, Cooperative, No apparent distress, Well developed, Well nourished HEENT: Atraumatic, PERRLA, EOMI, Normocephalic Oral: Moist Mucosa Neck: Supple, No JVD, Negative Carotid Bruits, Trachea Midline, Thyroid Normal Size and Texture Lungs: Clear to auscultation, Normal air movement, No rhonchi, No wheeze Cardiovascular: Regular rate, Regular Rhythm, Normal S1, Normal S2, No murmurs, PMI Normal, No rub noted, No Gallop Abdomen: Bowel Sounds Present, Soft, Non Tender, Non-Distended Extremities: No clubbing, No cyanosis, No edema, Capillary Refill Less than 3 Seconds Skin: No rashes, No breakdown Musculoskeletal: No Tenderness to Palpation of Joints or Extremities Neurological: Cranial nerves II-XII grossly intact, Neuro grossly intact, Sensory exam intact to light touch and pain, Coordination normal Psych/Mental Status: Normal Affect, Appropriate, Alert and oriented to time, place, person, mood and affect Laboratory Results 07/09/20 09:49: WBC 8.3, RBC 5.46 H, Hgb 15.9 H, Hct 48.5 H, MCV 88.8, MCH 29.1, MCHC 32.8, RDW Std Deviation 43.8, RDW Coeff of Raisa 13.5, Plt Count 265, MPV 11.4, Immature Gran % (Auto) 0.500, Neut % (Auto) 67.0, Lymph % (Auto) 25.1, [place] % (Auto) 5.6, Eos % (Auto) 1.3, Baso % (Auto) 0.5, Absolute Neuts (auto) 5.5, Absolute Lymphs (auto) 2.07, Nucleated RBC % 0 07/09/20 09:49: Sodium 136, Potassium 3.5, Chloride 102, Carbon Dioxide 26.0, Anion Gap 8, BUN 15, Creatinine 1.23 H, Estim Creat Clear Calc 34.80, Est GFR (MDRD) Af Amer 56 L, Est GFR (MDRD) Non-Af 46 L, BUN/Creatinine Ratio 12.2, Glucose 121 H, Calcium 9.3, Troponin I < 0.015 07/09/20 09:49: B-Natriuretic Peptide 15.2 07/09/20 13:05: Troponin I < 0.015 07/09/20 15:45: Troponin I < 0.015 Current Medications Acetaminophen (Acetaminophen 325 Mg Tablet) 650 mg PO Q6H PRN PRN PRN Reason: Pain Score 1-10/Temp > 100.7 F Aspirin (Aspirin 81 Mg Tab.Chew) 81 mg PO DAILY@0800 ALEXA Atorvastatin Calcium (Atorvastatin Calcium 20 Mg Tablet) 20 mg PO HS ALEXA Fluoxetine HCl (Fluoxetine 20 Mg Capsule) 20 mg PO DAILY ALEXA Sodium Chloride () 250 mls @ 15 mls/hr IV .[id number] PRN PRN Reason: Saline Flush Sodium Chloride () 250 mls @ 15 mls/hr IV .[id number] PRN PRN Reason: Additional IVPB Infusion Morphine Sulfate (Morphine 2 Mg/Ml Syringe) 2 mg IV Q3H PRN PRN PRN Reason: Pain Score 6-10 Ondansetron HCl (Ondansetron 4 Mg/2 Ml Vial) 4 mg IV Q8H PRN PRN PRN Reason: NAUSEA/VOMITING Oxycodone HCl (Oxycodone 5 Mg Tablet) 5 mg PO Q4H PRN PRN PRN Reason: Pain Score 4-5 Pantoprazole Sodium (Pantoprazole Sodium 40 Mg Tablet) 40 mg PO DAILY ALEXA Sodium Chloride (0.9% Saline Lock 10 Ml Syringe) 10 - 40 ml IV UD PRN PRN Reason: SALINE FLUSH Temazepam (Temazepam 15 Mg Capsule) 15 mg PO QHS PRN PRN PRN Reason: INSOMNIA Assessment/Plan All Active Problems Chest pain (Acute) #1 precordial chest pain-etiology unclear, patient's chest pain sounds atypical for anginal symptoms, again patient was placed in observation status on PCU, cardiac enzymes will be cycled, she will undergo a treadmill nuclear stress test if her enzymes remain negative. #2 palpitations-patient complains of what sounds like palpitations with the chest discomfort, I have elected to get an echocardiogram on the patient. #3 gastroesophageal reflux disease-patient will remain on her current medication or its equivalent #4 hyperlipidemia #5 depression OBSV E&M: 85648 Initial observation care L3
--- NOTE | 2020-07-09 19:56 | ECHOD_ITS ---
Reason For Study: Palpitations Procedure This was a 2D Doppler, Color Flow transthoracic echocardiogram. Exam performed in department. Left Ventricle Normal LV size. Left ventricular systolic function is normal. The estimated ejection fraction is 65 %. Diastolic function is indeterminate. No regional wall motion abnormalities noted. Right Ventricle Normal RV size. Normal systolic function. Atria Normal left atrium. Normal right atrium. No doppler evidence for ASD. Mitral Valve There is no mitral annular calcification. Normal mitral valve. Trivial mitral valve insufficiency. Tricuspid Valve Normal tricuspid valve. Trivial tricuspid valve insufficiency. Unable to estimate RV systolic pressure due to insufficient tricuspid regurgitant envelope. Aortic Valve Trisinus/trileaflet aortic valve. Normal aortic valve. Pulmonic Valve The pulmonic valve is not well visualized. Great Vessels The aortic root was not well visualized. Pericardium/Pleural No pericardial effusion. MMode/2D Measurements & Calculations LVIDd: 4.2 cm IVSd: 0.76 cm LA dimension: 2.5 cm LVIDs: 3.1 cm LVPWd: 0.75 cm RVDd: 2.2 cm FS: 26.2 % LAV(MOD-bp): 23.4 ml LA A4 area: 12.0 cm2 RA A4 area: 5.6 cm2 LAV(MOD-bp) Indexed: 15.7 ml/m2 LAV(MOD-sp2): 22.2 ml LAV(MOD-sp4): 23.8 ml Time Measurements MV dec time: 0.28 sec Doppler Measurements & Calculations MV E max ovidio: 89.3 cm/sec Lat Peak E' Ovidio: 8.5 cm/sec Med Peak E' Ovidio: 9.2 cm/sec MV A max ovidio: 65.4 cm/sec E/E' lat: 10.5 E/E' med: 9.7 MV E/A: 1.4 MV V2 max: 92.2 cm/sec MV P1/2t max ovidio: 92.7 cm/sec Ao V2 max: 104.3 cm/sec MV max P.4 mmHg MV P1/2t: 114.6 msec Ao max P.4 mmHg MV V2 mean: 47.8 cm/sec MV dec slope: 237.1 cm/sec2 MV mean P.1 mmHg MVA(P1/2t): 1.9 cm2 MV V2 VTI: 33.9 cm LV V1 max: 110.0 cm/sec PA V2 max: 108.8 cm/sec LV V1 max P.8 mmHg Interpretation Summary Left ventricular systolic function is normal. The estimated ejection fraction is 65 %. Trivial mitral valve insufficiency. Trivial tricuspid valve insufficiency. Unable to estimate RV systolic pressure due to insufficient tricuspid regurgitant envelope. Diastolic function is indeterminate. Ordering Physician: Milton Moore Referring Physician: Cory Galvez Performed By: Davion Damon RCS
[2020-07-09] MEDS: Atorvastatin Calcium 20 MG Tablet PO (21:14)
[2020-07-10] VITALS (9 sets, daily range): BP systolic 111–147; BP diastolic 59–84; PULSE 43–67; RESP 16–18; TEMP 36.4–36.8; O2SAT 96–99
[2020-07-10] MEDS: Pantoprazole Sodium 40 MG Tablet PO (10:27)
[2020-07-10] MEDS: FLUoxetine 20 MG Capsule PO (10:27)
--- NOTE | 2020-07-10 11:13 | CASEMGMT ---
This RN CM to room with PIZARRO form at this time, explanation done-pt voices understanding, and signs PIZARRO form at this time. Original to chart and copy to pt at this time. Pt states no further questions/concerns/needs at this time. [place] KATI PARSONS
--- NOTE | 2020-07-10 12:27 | STRESSREP_ITS ---
Stress Test Report Date: 07-10-2020 Procedure: Exercise tolerance test/imaging study Indications: Chest pain; palpitations Consent: Per the patient Procedure: The patient exercised on a Willi protocol for 6 minutes completing Stage II achieving a peak heart rate of 136 bpm (88% predicted maximal heart rate) with a peak blood pressure 142/82 mmHg and a peak MET capacity of 7 METs. The baseline ECG demonstrated sinus bradycardia. The peak exercise ECG demonstrated somatic/motion artifact with no obvious ECG changes. There were no cardiac dysrhythmias pretest, during exercise, or recovery. The functional capacity was considered average. There was no complaint of chest discomfort during exercise or recovery. The examination was discontinued secondary to leg discomfort. Impression: 1. Technically adequate (percent predicted maximal heart rate greater than 85%) exercise tolerance test 2. Peak exercise ECG with somatic/motion artifact with no obvious ECG changes 3. There were no cardiac dysrhythmias pretest, during exercise, or recovery 4. Nuclear images pending Myocardial perfusion imaging study: Technique: The patient was injected with 11.1 mCi of technetium 99m Cardiolite and subsequently rest SPECT Cardiolite nuclear imaging was obtained in the horizontal long, vertical long, and short axis views. The patient exercised on a Willi protocol for 6 minutes completing Stage II achieving a peak heart rate of 136 bpm (88% predicted maximal heart rate) with a peak blood pressure 142/82 mmHg and a peak MET capacity of 7 METs. The patient was injected with 32.6 mCi of technetium 99m Cardiolite and subsequently stress SPECT Cardiolite nuclear imaging was obtained in the horizontal long, vertical long, and short axis views. A gated Cardiolite study at peak stress was obtained. Interpretation: Rest and stress SPECT Cardiolite nuclear imaging status post realignment, normalization, and attenuation correction, demonstrates the appearance of relative uniform tracer uptake and myocardial perfusion appearing within normal limits. There is end systolic thickening and brightening. The gated Cardiolite study demonstrates myocardial thickening and inward wall motion. The reported LVEF is 70%. Impression: 1. Rest and stress SPECT Cardiolite nuclear imaging demonstrate relative uniform tracer uptake and myocardial perfusion appearing within normal limits. 2. The gated Cardiolite study reports an LVEF of 70%. This note was generated with [employer] software. It may contain incorrect words, spelling, and punctuation that were not noted in checking the note before signing.
[2020-07-10] MEDS: Aspirin 81 MG TAB.CHEW PO (13:59)
--- NOTE | 2020-07-10 16:21 | PCM.DC ---
- Discharge Diagnoses Current Active Problems: Current Active and Chronic Problems Chest pain (Acute) You will use the following diet at home:: No restrictions Your food should be the consistency of: Regular Your liquids should be the consistency of: Regular/Thin Discharge Activity: Return to Normal Activity Weight Bearing Status: Full weight bearing Additional Instructions: ASK YOUR PHYSICIAN IF YOU STILL NEED TO TAKE AN 81 MG ASPIRIN DAILY Allergies/Adverse Reactions: Allergies No Known Allergies Allergy (Verified 07/09/20 09:44) Medications to take at Discharge Fluoxetine [Prozac] 20 mg PO DAILY 10/19/13 Aspirin [Aspirin, Baby] 81 mg PO DAILY@0800 05/27/17 Atorvastatin Calcium 20 mg PO DAILY 05/27/17 Lansoprazole [Prevacid] 30 mg PO DAILY 05/27/17 Fluticasone 0.05% [Flonase Nasal [place]] 2 spray NASAL DAILY PRN 07/09/20 Primary Care Physician: Cory Galvez DO [Primary Care Provider] - Please follow up with your Primary Care Physician in: SCHEDULED Test Results: Test results from this visit will be discussed in further detail at your follow-up appointment, if applicable.
--- NOTE | 2020-07-10 16:28 | PHA.DC.MR ---
Pharmacy Service has performed discharge medication reconciliation for this patient. The patient's discharge medication list was reviewed for discrepancies and discrepancies were resolved. Home Medications Fluoxetine [Prozac] 20 mg PO DAILY 10/19/13 Aspirin [Aspirin, Baby] 81 mg PO DAILY@0800 05/27/17 Atorvastatin Calcium 20 mg PO DAILY 05/27/17 Lansoprazole [Prevacid] 30 mg PO DAILY 05/27/17 Fluticasone 0.05% [Flonase Nasal [place]] 2 spray NASAL DAILY PRN 07/09/20
--- NOTE | 2020-07-11 18:50 | DS.PCM_ITS ---
Discharge Date and Diagnosis - Problem List Patient Problems: Active and Suspected Problems Chest pain (Acute) Date of Admission: 07/09/20 Date of Discharge: 07/10/20 - Primary Discharge Diagnosis Acute Problems: Active Problems #1 musculoskeletal chest pain #2 hyperlipidemia #3 GERD - Secondary Discharge Diagnosis Chronic Problems: Chronic Problems GERD (gastroesophageal reflux disease) (Chronic) Hospital Course and Treatment Procedures: 2-D Echocardiogram, Nuclear stress test Summary of Care Provided: The patient is a 65 year old F was seen in the emergency room with a chief complaint of precordial chest pain, work-up in the emergency room included an EKG which showed a normal sinus rhythm without evidence of ischemic changes, chest x-ray which showed no abnormality, cardiac enzymes were performed and these were normal. Patient was placed in observation status on PCU, echocardiogram was performed which was unremarkable, cardiac enzymes were cycled and these remain normal and the patient underwent an exercise nuclear stress test which showed no evidence of reversible ischemic changes. On 07/10/2020, patient was seen and examined: On examination she appeared in good health and spirits, she does not appear to be in any distress. Vital signs as documented. Skin warm and dry and without overt rashes. Neck without JVD, thyroid appears normal, trachea is midline, neck is supple. Lungs clear, normal air movement was noted. Heart exam notable for regular rhythm, normal sounds and absence of murmurs, rubs or gallops. Abdomen unremarkable and without evidence of organomegaly, masses, or abdominal aortic enlargement, bowel sounds are present in all 4 quadrants, no abdominal tenderness was noted. Extremities nonedematous, no cyanosis was noted, no clubbing was noted. Neuro: Cranial nerves II through XII are grossly intact, no focal motor deficits were noted, sensation to light touch and pinprick is intact, motor exam 5/5 throughout. Psych: Patient is alert and oriented x3, she does not appear anxious or depressed, she does not appear agitated. Patient appeared stable for discharge on 07/10/2020. Patient Problems: Active and Suspected Problems Chest pain (Acute) - Physical Exam Vitals/I&O's: Vital Signs Temp Pulse Resp BP Pulse Ox 97.7 F L 57 L 18 128/60 H 98 07/10/20 14:00 07/10/20 15:00 07/10/20 14:00 07/10/20 14:00 07/10/20 14:00 Oxygen Delivery Method Room Air Weight: 48.166 kg Body Mass Index (BMI) 18.1 Intake and Output for Last 24 Hours 07/09/20 07/10/20 07/11/20 23:59 23:59 23:59 Intake Total 400 / 640 640 / 640 Balance 400 / 640 640 / 640 Discharge Activity: Return to Normal Activity Weight Bearing Status: Full weight bearing Home Medications: Medications to take at Discharge Fluoxetine [Prozac] 20 mg PO DAILY 10/19/13 Aspirin [Aspirin, Baby] 81 mg PO DAILY@0800 05/27/17 Atorvastatin Calcium 20 mg PO DAILY 05/27/17 Lansoprazole [Prevacid] 30 mg PO DAILY 05/27/17 Fluticasone 0.05% [Flonase Nasal [place]] 2 spray NASAL DAILY PRN 07/09/20 Primary Care Physician: Cory Galvez DO [Primary Care Provider] - Please follow up with your Primary Care Physician in: SCHEDULED Disposition: Home Minutes spent on discharge:: 30 Patient Condition:: Stable Medical Necessity - Tobacco Use Smoking Status: Heavy Smoker (>10/day) Tobacco Use: Cigarettes Meaningful Use Info Meaningful Use Diagnoses (Choose all that apply): None applicable OBSV E&M: 07999 Observation care discharge
== END 2020-07-10 16:22 | disposition home or self-care (01) ==
LOC: ED 10:31 → PCU 10:53
PROVIDERS: Admitting Provider Internal Medicine; Emergency Provider Emergency Medicine; PCP Student in an Organized Health Care Education/Training Program; Visit Provider Internal Medicine
DX: R07.89 Other chest pain (principal); K21.9 Gastro-esophageal reflux disease without esophagitis; E78.5 Hyperlipidemia, unspecified; R11.0 Nausea; R06.02 Shortness of breath; F17.210 Nicotine dependence, cigarettes, uncomplicated; Z79.899 Other long term (current) drug therapy; Z79.82 Long term (current) use of aspirin; F32.9 Major depressive disorder, single episode, unspecified; R00.2 Palpitations
CPT/HCPCS: 36415; 71045; 78452; 80048; 83880; 84484; 85025; 93005; 93017; 93306; 96374; 99218; 99285; 99406; A9500; A4216; G0378; J2405